=== PATIENT | female | born 1995 | race Hispanic/Latino ===

== ENCOUNTER 2020-06-22 17:19 | Outpatient (CLI) | payer MEDICAID, SELFPAY ==
--- NOTE | ~2020-06-22 | US_ITS ---
US OB >= 14 weeks Fetus 06/22/2020 17:44 Indication: Threatened . No heart tones. Procedure: High-resolution Limited obstetrical ultrasound Comparison: No prior studies for comparison. Findings: There is a single living intrauterine in vertex presentation. heart rate is 150 BPM. Placenta is posterior without previa. Amniotic fluid is subjectively normal. Impression: 1: Single living intrauterine in vertex presentation with heart rate of 150 BPM. Reviewed, dictated and finalized at location A. Impression: 1: Single living intrauterine in vertex presentation with heart rate of 150 BPM.
== END 2020-06-22 17:20 | disposition home or self-care (01) ==
PROVIDERS: PCP Obstetrics & Gynecology; Visit Provider Obstetrics & Gynecology
DX: O20.0 Threatened abortion (principal)
CPT/HCPCS: 76805

== ENCOUNTER 2020-09-29 09:22 | Outpatient (CLI) | payer MEDICAID, SELFPAY ==
[2020-09-29 11:07] LABS: Hematocrit 37.2 % (37.0-47.0); Hemoglobin 11.7 g/dL (12.0-15.0); Mean Corpuscular HGB Conc 31.5 g/dl (32-36); Mean Corpuscular Hemoglobin 23.8 pg (26-34); Mean Corpuscular Volume 75.8 fl (80-100); Platelet Count Result 274 k/mm3 (150-375); Red Blood Count 4.91 M/mm3 (4.2-5.4); Red Cell Distribution Width 15.1 % (11.5-14.5); White Blood Count 5.6 K/mm3 (4.5-10.0)
[2020-09-29 11:27] LABS: Glucose 1 Hour PP 50gm Dose 83 mg/dL
[2020-09-29 12:35] LABS: HIV 1/2 Ab P24 Ag Result Negative (Negative)
== END 2020-09-29 09:23 | disposition home or self-care (01) ==
PROVIDERS: PCP Obstetrics & Gynecology; Visit Provider Obstetrics & Gynecology
DX: Z34.90 Encounter for supervision of normal pregnancy, unspecified, unspecified trimester (principal); Z3A.00 Weeks of gestation of pregnancy not specified
CPT/HCPCS: 36415; 82947; 85027; 86703; G0432

== ENCOUNTER 2020-11-25 09:15 | Inpatient (IN) | payer MEDICAID, SELFPAY ==
[2020-11-25] VITALS (14 sets, daily range): BP systolic 91–150; BP diastolic 54–75; PULSE 62–108; RESP 12–16; TEMP 36.8–37.1; O2SAT 100
--- NOTE | 2020-11-25 09:15 | LDADM ---
This patient, Elsa Andres, was admitted to Labor/Delivery/Recovery 105 on 11/25/20 at 09:15. Plans for labor, pain management and were discussed with patient. Patient/family oriented to hospital policies and general routines including ID bracelet, bed and alarms, visiting hours, pain management, procedures, bathroom and other care routines, personal items, smoking policy, room service/diet and guest tray routines, security routines, and visiting hours. Patient/Family are encouraged to report perceived risks to care and to ask questions if they do not understand what they are told or what they should do. See OBIX for further documentation.
[2020-11-25] MEDS: OXYTOCIN 30 UNITS/NS 500 ML 30 UNITS/500 ML BAG 999 UNITS IV CONT (09:45)
[2020-11-25] MEDS: AMPICILLIN 2 GM/NS 100 ML 2 GM/100 ML BAG IVPB (09:45)
[2020-11-25] MEDS: LACTATED RINGERS 1,000 ML 125 ML IV CONT (09:45)
--- NOTE | 2020-11-25 09:50 | WPDOBADMIT ---
Obstetrics - Admit Note Admission Note: record reviewed. No pertinent additions to the history and/or any subsequent changes in the physical findings that are not consistent with the expected course of the were found. Additions to the history and/or subsequent changes in the physical findings follow. at 36+6 weeks with c/o contractions, 8 cm on arrival. GBS done 11/20 but no result available in chart or on computer, so start antibiotics due to prematurity. Anticipate
[2020-11-25 09:54] LABS: Basophils Percent Auto 0.3 % (0.2-1.2); Eosinophils Percent Auto 0.2 % (0-4.4); Hematocrit 42.1 % (37.0-47.0); Hemoglobin 13.3 g/dL (12.0-15.0); Immature Granulocyte Absolute 0.06 K/mm3 (0.00-0.031); Immature Granulocyte Percent A 0.5 % (0-0.5); Immature Platelet Fraction Pct 17.2 % (0.9-11.2); Lymphocytes Absolute Auto 1.56 K/mm3 (0.9-3.2); Lymphocytes Percent Auto 14.1 % (18.3-44.2); Mean Corpuscular HGB Conc 31.6 g/dl (32-36); Mean Corpuscular Hemoglobin 23.9 pg (26-34); Mean Corpuscular Volume 75.7 fl (80-100); Mean Platelet Volume 11.7 fl (7.4-10.4); Monocytes Absolute Auto 0.4 K/mm3 (0.1-0.6); Monocytes Percent Auto 3.4 % (2.6-8.5); Neutrophils Percent Auto 81.5 % (45.5-73.1); Platelet Count Result 214 k/mm3 (150-375); Red Blood Count 5.56 M/mm3 (4.2-5.4); Red Cell Distribution Width 18.4 % (11.5-14.5)
--- NOTE | 2020-11-25 09:54 | OBADM ---
This patient, Elsa Andres, admitted to the OB room Labor/Delivery/Recovery 105 for observation. Patient/family oriented to hospital policies and general routines including ID bracelet, bed and alarms, visiting hours, pain management, procedures, bathroom and other care routines, personal items, smoking policy, room service/diet, and visiting hours. Patient/Family are encouraged to report perceived risks to care and to ask questions if they do not understand what they are told or what they should do.
--- NOTE | 2020-11-25 10:42 | PM.OBPRVD ---
OB - Delivery Note Procedure Delivery date: 11/25/20 Procedure: events: Labor < 37 Weeks Induction method: none Delivery augmentation: rupture of membranes Delivery monitor: external FHT and external uterine Route of delivery: Laceration Description: Perineal - 1st Degree Delivery repair: vicryl (3-0) Specimen: No Quantitative Blood Loss (ml): 223 Anesthesia type: Local Disposition: floor Baby Date of : 11/25/20 Time of : 10:23 Weeks of gestation at delivery: 36 Infant gender: Male Weight (pounds): 6 Weight (ounces): 7 presentation: vertex position: Left Occiput Anterior Placenta delivery description: Spontaneous cord vessel description: 3 Vessels, Loose, Clamped/Cut and Around Body x1 score one minute: 8 score five minutes: 9
[2020-11-25 10:45] LABS: HIV 1/2 Ab P24 Ag Result Negative (Negative)
[2020-11-25] MEDS: OXYTOCIN 30 UNITS/NS 500 ML 30 UNITS/500 ML BAG 125 UNITS IV CONT (11:01)
[2020-11-25] MEDS: BENZOCAINE 20% AER SPR (*SP) 56 GM CAN 1 SPRAY TOPICAL (13:17)
[2020-11-25] MEDS: WITCH HAZEL 40 PADS 1 PAD TOPICAL (13:18)
--- NOTE | 2020-11-25 18:27 | OBPPTRN ---
1357 Patient transferred to post room #282 via W/C . Support person present. Oriented to unit, room, information board, rooming in, admission packet and security measures. The [employer] Golf Teacher was used. Patient verbalizes understanding.
[2020-11-26 05:54] LABS: Hematocrit 32.6 % (37.0-47.0); Hemoglobin 10.3 g/dL (12.0-15.0)
[2020-11-26 10:18] VITALS: BP 95/62; PULSE 80; RESP 16; TEMP 36.6; O2SAT 97
[2020-11-26] MEDS: DOCUSATE SODIUM 100 MG CAPSULE PO (10:18)
[2020-11-26] MEDS: MULTIVIT/MIN/PREN/FOL AC/IRON TABLET 1 TAB PO (10:18)
[2020-11-26] MEDS: IBUPROFEN 600 MG TABLET PO (10:18)
--- NOTE | 2020-11-26 11:10 | P.PNOB_ITS ---
OB - PN: Subj Subjective Date/time seen: 11/26/20 11:10 Patient comments: no complaints, pain well controlled and other (Lochia similar to menses) [place] baby status: doing well OB - PN: Obj Data Labs CBC & Chem 7: 11/26/20 04:31 Labs: Laboratory Results - last 24 hr 11/25/20 11/26/20 09:34 04:31 Hgb 10.3 L D Hct 32.6 L Blood Type O Positive Antibody Screen Negative OB - PN A/P Plan day: 1 (s/p vaginal delivery, doing well) Plan: routine care Time Spent With Patient Time: Total time spent is greater than 50% in coordination of care (as documented) at patient's floor/unit and/or counseling patient: Exam Const: General: no acute distress GI: Inspection: other (Fundus firm and nontender at umbilicus) GI Palp: Yes Soft to palpation and No Tenderness to palpation present (GI) Extrem: General: no edema
--- NOTE | 2020-11-26 11:10 | PM.OBDSVD ---
DS: Admitting Diagnosis Admitting Diagnosis Admitting Diagnosis: labor DS: Discharge Diagnosis Discharge Diagnosis (1) delivery: Code(s): O60.10X0 - labor with delivery, unspecified trimester, not applicable or unspecified Status: Acute OB - DS: Summary OB Procedures : None OB Procedures Intrapartum: Spontaneous Vag Delivery OB Procedures: : None Peripartum Data Infant Delivery Method: Natural Vaginal Laceration Description: Perineal - 1st Degree complications: none Status at Discharge Functional status at discharge: independent ambulation Overall status at discharge: patient is progressing back to baseline Time Spent with Patient Time attestation: Total time spent providing and/or coordinating discharge services: Time spent: Less than 30 minutes DS: Data Data Completed and Pending Labs on day of discharge: Labs from last 24 hours 11/26/20 11/25/20 04:31 09:34 Hgb 10.3 L D Hct 32.6 L Blood Type O Positive Antibody Screen Negative Discharge Plan Discharge Attending physician on discharge: Ce Levy Discharging Clinician: Ce Levy Anticipated Discharge Date/Time: 11/27/20 11:00 Patient Disposition: Home, Self-Care Activity: may shower and pelvic rest Diet: as tolerated Discharge Instructions: Educaci?n: Gu?a de ilene? y beb? yassine a: Paciente Seguimiento: Llame al consultorio de rajan proveedor de entrega para que se le ate joshua ayleen en: 4 semanas Ilene? y beb? deben venir al Pabell?n de Mujeres para la ayleen de seguimiento posparto. Fecha/Hora de la Ayleen: Mi?rcoles 11/29/2020 a las 10:00 am Llame al [phone] si no puede cumplir con la hora de rajan ayleen. CUIDADO BREAST: * Use un sujetador de apoyo ajustado. * Para molestias engorgement: Lactancia materna: * Aplicar pa?os h?medos calientes * Leche expr?sa seg?n sea necesario para aliviar el engorgement * Use ropa suelta Alimentaci?n de botellas: * Puede aplicar paquetes de hielo * Para pezones doloridos: * Identificar el pestillo correcto * Aplicar pa?os h?medos calientes antes y despu?s de la lactancia * Pezones secos al aire despu?s de la lactancia * Puede aplicar crema Lansinoh a los pezones CUIDADO PERINEAL: * Hasta que se detenga el sangrado, use rajan frasco vin despu?s de orinar * Cambie rajan almohadilla con frecuencia kamila todo el d?a * Usted puede alexandrea ba?os de sitz varias veces al d?a (llenar rajan ba?era con agua tibia y remojar kamila 20 minutos.) NO se ba?e en el agua * No hay ba?eras hasta que sea visto por rajan m?dico - Usted puede ducharse Actividad: * Descansar tanto vivian sea posible. * No bossman ejercicio ni levante nada m?s pesado que rajan beb? (vivian la lavander?a u otros ni?os.) * Evite las escaleras o conduzca tanto vivian sea posible. * No ponga nada en la vagina. No douching, tampones, o actividad sexual hasta que sea visto por el m?dico. NOTIFICAR AL M?DICO SI TIENE ALGUNA PREGUNTA O SI SE PRESENTA ALGUNO DE LOS SIGUIENTES S?NTOMAS: * Si rajan episiotom?a o incisi?n se vuelve aamir, hinchada o m?s dolorosa que la que julio experimentado en el hospital. * Si rajan sangrado vaginal se convierte en mal olor. * Si rajan sangrado vaginal se vuelve m?s intenso que un per?odo menstrual o si rajan sangrado cambia ramiro a araya brillante. Sin embargo, puedes pasar un co?gulo ocasional del jesse?o de joshua nuez joshua o dos veces kamila la primera semana despu?s del parto. * Si experimenta un dolor cheko y punz?n en las pantorrillas. * Si descubres joshua ken dura y enrojecida en la mama o si experimentas s?ntomas similares a los de la gripe. Dieta: * Coma comidas regulares y equilibradas. * Antonietta muchos l?quidos diariamente. Si est? amamantando, antonietta sed. Patient Instructions: Antibiotic Form Follow-up/Referrals: Ce Levy MD [Primary Care Provider] - 4 Weeks Dis
--- NOTE | 2020-11-26 17:20 | PC.NURSE ---
1700 Used the [employer] Authorization Coordinator to help the FOB understand that he needed to install the car seat base properly before the infant in the car seat could go in the base. He V/U'd and installed the base and then was able to click the car seat down into it rear facing and adjusted the car seat handle down into place between the infant car seat and the front seat.
--- NOTE | 2020-11-26 17:29 | PC.NURSE ---
1700 D/C teaching done using the [employer] Nib Inspector. She V/U'justus.
[2020-11-27 07:01] LABS: Rapid Plasma Reagin Non-Reactive (NonReactive)
[2020-11-29 11:38] VITALS: BP 105/63; PULSE 100; RESP 18; TEMP 37.2; O2SAT 100
== END 2020-11-26 17:00 | disposition home or self-care (01) | DRG 560 ==
LOC: ANHLDR 09:30 → ANHOB2 13:54
PROVIDERS: Admitting Provider Obstetrics & Gynecology; PCP Obstetrics & Gynecology; Visit Provider Obstetrics & Gynecology
DX: O60.14X0 Preterm labor third trimester with preterm delivery third trimester, not applicable or unspecified (principal); Z37.0 Single live birth; Z3A.36 36 weeks gestation of pregnancy; O70.0 First degree perineal laceration during delivery; O69.82X0 Labor and delivery complicated by other cord entanglement, without compression, not applicable or unspecified
CPT/HCPCS: 36415; 85014; 85018; 85025; 85055; 86592; 86703; 86850; 86900; 86901; A9270; G0432; J0290; J2590; J7120

== ENCOUNTER 2025-01-28 13:32 | Outpatient (CLI) | payer MEDICAID, SELFPAY ==
--- NOTE | ~2025-01-28 | US_ITS ---
EXAMINATION: US OB <=14 wk fetus w TV DATE: 01/28/2025 20:59 BOXING INSTRUCTOR INDICATION: Amenorrhea COMPARISON: 08/25/2024 TECHNIQUE: Real-time transabdominal obstetric ultrasound. FINDINGS: Last menstrual period is given as 11/02/2024 4 para 3 Estimated date of delivery by last menstrual period is 08/09/2025 The uterus measures 15.8 x 9.1 x 10.6 cm. A gestational sac is identified within the uterus. A pole is identified, with a crown-rump length that measures 6.6 cm, corresponding to an approx imate gestational age of 13 weeks and 0 days. cardiac activity is identified at a rate of 157 bpm. Despite prolonged interrogation, neither ovary was visualized. Estimated date of delivery by ultrasound is 08/05/2025 IMPRESSION: Single intrauterine gestation with an approximate gestational age of 13 weeks and 0 days, with cardiac activity identified. Reviewed, dictated and finalized at location A. NG INSTRUCTOR IMPRESSION: Single intrauterine gestation with an approximate gestational age of 13 weeks a nd 0 days, with cardiac activity identified.
--- OUTSIDE RECORDS SUMMARY | 2025-01-28 13:49 | XMS_ITS | Data Portability ---
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 Plan of Treatment Reminders Order Date Submit Date Provider Last Modified By Organization Details Last Modified Time Details Appointments None recorded. Lab test, urine 2024 025 doris In-Office Order, Internal Use Only DO Not Attach Compendium DO Not Attach Compendium, Do Not Delete/merge, [id number] 5 13:00:28 cytology report, thin prep, smear or scraping, cervical or vaginal 2023 024 [facility], [address] [place] [address], [facility] [address], [place], [address], 4 15:17:30 lipid panel, serum 2023 024 [facility], [address] [place] [address], [address], [place], [address], 4 08:23:26 CMP, serum or plasma 2023 024 [facility], [address] [place] [address], [address], [place], [address], 4 08:23:27 Referral obstetrici an and gynecologi st referral 2024 025 [email or web address] Not available 5 11:51:17 gastroente rologist referral - 4AS T 75ALT 116Patient was due follow up 11/2023 voices no one told me 2023 024 [facility], [address], [place], [address], 5 12:04:43 Procedures None recorded. Surgeries None recorded. Imaging None recorded. Medication Orders 28 mg iron-800 mcg tablet [address] [facility], [address] [place] [address], [id number], 5 10:29:41 metronidaz ole 0.75 % (37.5 mg/5 gram) vaginal gel 2023 024 [facility], [address] [place] [address], [id number], 4 11:20:21 Sprintec (28) 0.25 mg-35 mcg tablet [address] [facility], [address] [place] [address], [id number], 4 18:10:46 Patient TargetsNo targets recorded. Patient Instructions Encounter Date Encounter Id Patient Instructions Last Modified By Organization Details Last Modified Time 02/09/2024 [id number] aprenda acerca d el peso saludable - [learning about healthy weight] yarauz Not available 02/09/2024 12:42:42 ndice de masa corporal: instrucciones de cuidado - [body mass index: care instructions] yarauz Not available 02/09/2024 12:42:43 schedule for wwe yarauz Not available 02/09/2024 13:01:40 Discharge Instructions - Wound Care - You may bathe with steri strips on -you may remove bandaid in 24 hours -you may use ice to area for discomfort or bruising - Elevate to decrease pain and improve healing. - Minimize use of affected body part. - Return here or see your doctor for any sign of infection, including redness, swelling, pus or increased pain. - Return for wound check in 10 days. -Take Tylenol if you have fever or pain. Return for a more severe reaction. Return to see your doctor in {{1 2 3 4 5 6 7 8 9 10* 11 12 13 14}} days for a recheck. Return of see your doctor if not improving in {{1 2 3 4 5 6 7 8 9 10 11 12 13 14}} days. Patient to start oral control today Patient to take OBC at same time every day as directed Use condoms as back for first week Risks of hormonal control reviewed, including but not limited to thrombosis, embolism, pulmonary embolism, stroke, disability, sexual dysfunction & . Patient understands these risk are increased with smoking. Patient understands that these risks may be increased when using the patch (Ortho-Evra) or the vaginal ring (Nuva-Ring) when compared to oral control pills. Risks of bone loss with Depo Provera also reviewed. All questions answered. Pt understands & accepts risks. Instructions/warnin g signs given. I have reviewed the chart and agree with the provider's assessment and plan -Dr Wade Ibarra MD Not available 02/10/2024 10:31:52 02/19/2024 [id number] aprenda acerca d el peso saludable - [learning about healthy weight] yarauz Not available 02/19/2024 13:24:36 ndice de masa corporal: instrucciones de cuidado - [body mass index: care instructions] yarauz Not available 02/19/2024 13:24:36 wound is healing no infection signs schedule for wwe continue your current medicines yarauz Not available 02/19/2024 13:24:36 05/11/2024 [id number] A healthy lifestyle: care instructions yarauz Not available 05/11/2024 12:58:09 Enfermedad hep ellen grasa no alcoh lica: Instrucciones de cuidado - [Nonalcoholic Fatty Liver Disease (NAFLD): Care Instructions] yarauz Not available 05/11/2024 12:58:09 aprenda acerca d el peso saludable - [learning about healthy weight] yarauz Not available 05/11/2024 12:58:09 ndice de masa corporal: instrucciones de cuidado - [body mass index: care instructions] yarauz Not available 05/11/2024 12:58:09 Weight loss leads to improvement in liver biochemical tests, liver histology, serum insulin levels and quality of life. Maintain a healthy weight. Lose weight if you are overweight or obese Eat a healthy diet. Try to limit salt and sugar. You can eat fruits, vegetables and whole grains. The Mediterranean Diet is a good choice. Exercise regularly. This can help you lose weight and reduce fat in the liver Lower your cholesterol and triglycerides Avoid alcohol Only take medicines that you need and follow dosing recommendations. If you want to take any dietary supplements like vitamins and herbal remedies, please call the office first. 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 HIV testing recommendation condoms prn contraceptive options-pt refuses new guidelines--pap with Hpv in 3-5 years--pelvic exam every year Mammogram yearly after age 40 Check B/P once yearly I have reviewed the chart and agree with the provider's assessment and plan -Dr Wade Ibarra MD Not available 06/30/2024 11:22:57 12/23/2024 [id number] aprenda acerca d el peso saludable - [learning about healthy weight] yarauz Not available 12/23/2024 13:00:27 ndice de masa corporal: instrucciones de cuidado - [body mass index: care instructions] yarauz Not available 12/23/2024 13:00:28 ectopic symptoms and follow up start vitamins Nutritional guidelines No drugs, alcohol, medications Any vaginal bleeding with severe abdominal cramping to E/R Jp doris Not available 12/23/2024 12:59:09 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 METAB OLIC PANEL (14) glucose 83 mg/dL 70-99 Not Available [facility] [address] [place] [address], [id number], 01/23/2024 21:07:48 01/23/20 24 01/23/2024 COMP. METAB OLIC PANEL (14) BUN 9 mg/dL 6-20 Not Available [facility] [address] [place], [address], 01/23/2024 21:07:48 01/23/20 24 01/23/2024 COMP. METAB OLIC PANEL (14) creatinine <=0.46 mg/dL 0.76-1 .27 below low normal Not Available [facility] [address] [place], [address], 01/23/2024 21:07:48 01/23/20 24 01/23/2024 COMP. METAB OLIC PANEL (14) eGFR 132 >=60 Units for eGFR value s are mL/mi n/1.7 3 The eGFR Calcu latio n has not been valid ated for patie nts under the age of 18. If test resul ts are displ ayed for a patie nt under the age of 18, disre pam that value . Not Available [facility] [address] [place], [address], 01/23/2024 21:07:48 01/23/20 24 01/23/2024 COMP. METAB OLIC PANEL (14) BUN/creatini ne ratio 22 9-23 Not Available [facility] [address] [place], [address], 01/23/2024 21:07:48 01/23/20 24 01/23/2024 COMP. METAB OLIC PANEL (14) sodium 137 mmol/ L 134-14 4 Not Available [facility] [address] [place] [address], [address], 01/23/2024 21:07:48 01/23/20 24 01/23/2024 COMP. METAB OLIC PANEL (14) potassium 4.2 mmol/ L 3.5-5. 2 Not Available [facility] [address] [place] [address], [id number], 01/23/2024 21:07:48 01/23/20 24 01/23/2024 COMP. METAB OLIC PANEL (14) chloride 103 mmol/ L 96-106 Not Available [facility] [address] [place] [address], [address], 01/23/2024 21:07:48 01/23/20 24 01/23/2024 COMP. METAB OLIC PANEL (14) carbon dioxide, total 25 mmol/ L 20-29 Not Available [facility] [address] [place] [address], [id number], 01/23/2024 21:07:48 01/23/20 24 01/23/2024 COMP. METAB OLIC PANEL (14) calcium 9.6 mg/dL 8.7-10 .2 Not Available [facility] [address] [place] [address], [address], 01/23/2024 21:07:48 01/23/20 24 01/23/2024 COMP. METAB OLIC PANEL (14) protein, total 7.3 g/dL 6.0-8. 5 Not Available [facility] [address] [place] [address], [address], 01/23/2024 21:07:48 01/23/20 24 01/23/2024 COMP. METAB OLIC PANEL (14) albumin 3.9 g/dL 4.0-5. 0 Not Available [facility] [address] [place] [address], [address], 01/23/2024 21:07:48 01/23/20 24 01/23/2024 COMP. METAB OLIC PANEL (14) globulin, total 3.4 g/dL 1.5-4. 5 Not Available [facility] [address] [place] [address], [address], 01/23/2024 21:07:48 01/23/20 24 01/23/2024 COMP. METAB OLIC PANEL (14) A/G ratio 1.0 1.2-2. 2 below low normal Not Available [facility] [address] [place] [address], [address], 01/23/2024 21:07:48 01/23/20 24 01/23/2024 COMP. METAB OLIC PANEL (14) bilirubin, total 0.2 mg/dL 0.0-1. 2 Not Available [facility] [address] [place] [address], [address], 01/23/2024 21:07:48 01/23/20 24 01/23/2024 COMP. METAB OLIC PANEL (14) alkaline phosphatase 76 IU/L 44-121 Not Available [facility] [address] [place] [address], [address], 01/23/2024 21:07:48 01/23/20 24 01/23/2024 COMP. METAB OLIC PANEL (14) AST (SGOT) 75 IU/L 0-40 above high normal Not Available [facility] [address] [place], [address], 01/23/2024 21:07:48 01/23/20 24 01/23/2024 COMP. METAB OLIC PANEL (14) ALT (SGPT) 116 IU/L 0-32 above high normal Not Available [facility] [address] [place], [address], 01/23/2024 21:07:48 01/23/20 24 01/23/2024 HEPAT IC FUNCT ION PANEL (7) bilirubin, direct <=0.20 mg/dL 0.00-0 .40 Not Available [facility] [address] [place], [address], 01/23/2024 21:07:49 01/23/20 24 01/24/2024 ACUTE HEPAT ITIS hep A Ab, IgM Negati ve negati ve Not Available [facility] ([facility]) [address] [place], [address], 01/24/2024 11:12:35 01/23/20 24 01/24/2024 ACUTE HEPAT ITIS HBsAg screen Negati ve negati ve Not Available [facility] ([facility]) [address] [place], [address], 01/24/2024 11:12:35 01/23/20 24 01/24/2024 ACUTE HEPAT ITIS hep B core Ab, IgM Negati ve negati ve Not Available [facility] ([facility]) [address] [place], [address], 01/24/2024 11:12:35 01/23/20 24 01/24/2024 ACUTE HEPAT ITIS HCV Ab Non Reacti ve nonrea ctive Not Available [facility] ([facility]) [address] [place], [address], 01/24/2024 11:12:35 01/23/20 24 01/24/2024 INTER PRETA TION: interpretati on: Commen t Not infec paulino with HCV unles s early or acute infec tion is suspe cted (whic h may be delay ed in an immun ocomp romis ed indiv idual ), or other evide nce exist s to indic ate HCV infec tion. Not Available [facility] ([facility]) [address] [facility], [place], [address], 01/24/2024 11:12:36 01/23/20 24 01/24/2024 GGT GGT 29 IU/L 0-60 Not Available [facility] ([facility]) [address] [place], [address], 01/24/2024 11:12:36 01/23/20 24 01/24/2024 MYNOR+L IPASE amylase 41 U/L 31-110 Not Available [facility] ([facility]) [address] [place], [address], 01/24/2024 11:12:37 01/23/20 24 01/24/2024 MYNOR+L IPASE lipase 22 U/L 14-72 Not Available [facility] ([facility]) [address] [place], [address], 01/24/2024 11:12:37 01/23/20 24 01/24/2024 VITAM IN D, 25-HY DROXY vitamin D, 25-hydroxy 33.0 NG/mL 30.0-1 00.0 Vitam in D defic iency has been defin ed by the Insti tute of Medic ine and an Endoc rine Socie ty pract ice guide line as a level of serum 25-OH vitam in D less than 20 ng/mL (1,2) . The Endoc rine Socie ty went on to furth er defin e vitam in D insuf ficie ncy as a level betwe en 21 and 29 ng/mL (2). 1. IOM (Inst itute of Medic ine). 2010. Faith ry refer ence mi es for calci um and D. Russel elias [place]: [facility] . 2. Luna francisco MF, Talon posadas [place], Horacio off-F errar i ALBARADO, et al. Evalu ation , treat ment, and preve ntion of vitam in D defic iency : an Endoc rine Socie ty clini theo pract ice guide line. JCEM. 2010; 96(7) :1911 -30. Not Available [facility] ([facility]) [address] [place], [address], 01/24/2024 11:12:37 05/11/20 24 05/12/2024 LIPID PANEL cholesterol, total 177 mg/dL 100-19 9 Not Available [facility] ([facility]) [address] [place], [address], 05/12/2024 08:23:26 05/11/20 24 05/12/2024 LIPID PANEL triglyceride s 251 mg/dL 0-149 above high normal Not Available [facility] ([facility]) [address] [place], [address], 05/12/2024 08:23:26 05/11/20 24 05/12/2024 LIPID PANEL HDL cholesterol 41 mg/dL >39 Not Available [facility] [address] [place], [address], 05/12/2024 08:23:26 05/11/20 24 05/12/2024 LIPID PANEL VLDL cholesterol theo 42 mg/dL 5-40 above high normal Not Available [facility] ([facility]) [address] [place], [address], 05/12/2024 08:23:26 05/11/20 24 05/12/2024 LIPID PANEL LDL chol calc ([facility]) 94 mg/dL 0-99 Not Available [facility] [address] [place], [address], 05/12/2024 08:23:26 05/11/20 24 05/12/2024 COMP. METAB OLIC PANEL (14) glucose 80 mg/dL 70-99 Not Available [facility] ([facility]) [address] [place] [place], [address], 05/12/2024 08:23:27 05/11/20 24 05/12/2024 COMP. METAB OLIC PANEL (14) BUN 7 mg/dL 6-20 Not Available [facility] ([facility]) [address] [place] [place], [address], 05/12/2024 08:23:27 05/11/20 24 05/12/2024 COMP. METAB OLIC PANEL (14) creatinine 0.55 mg/dL 0.57-1 .00 below low normal Not Available [facility] ([facility]) [address] [place] [place], [address], 05/12/2024 08:23:27 05/11/20 24 05/12/2024 COMP. METAB OLIC PANEL (14) eGFR 126 mL/mi n/1.7 3 >59 Not Available [facility] ([facility]) [address] [place] [place], [address], 05/12/2024 08:23:27 05/11/20 24 05/12/2024 COMP. METAB OLIC PANEL (14) BUN/creatini ne ratio 13 9-23 Not Available [facility] ([facility]) [address] [place], [address], 05/12/2024 08:23:27 05/11/20 24 05/12/2024 COMP. METAB OLIC PANEL (14) sodium 138 mmol/ L 134-14 4 Not Available [facility] ([facility]) [address] [place] [place], [address], 05/12/2024 08:23:27 05/11/20 24 05/12/2024 COMP. METAB OLIC PANEL (14) potassium 4.5 mmol/ L 3.5-5. 2 Not Available [facility] ([facility]) [address] [place], [address], 05/12/2024 08:23:27 05/11/20 24 05/12/2024 COMP. METAB OLIC PANEL (14) chloride 101 mmol/ L 96-106 Not Available [facility] ([facility]) [address] [place], [address], 05/12/2024 08:23:27 05/11/20 24 05/12/2024 COMP. METAB OLIC PANEL (14) carbon dioxide, total 24 mmol/ L 20-29 Not Available [facility] ([facility]) [address] [place], [address], 05/12/2024 08:23:27 05/11/20 24 05/12/2024 COMP. METAB OLIC PANEL (14) calcium 9.2 mg/dL 8.7-10 .2 Not Available [facility] ([facility]) [address] [place], [address], 05/12/2024 08:23:27 05/11/20 24 05/12/2024 COMP. METAB OLIC PANEL (14) protein, total 7.0 g/dL 6.0-8. 5 Not Available [facility] ([facility]) [address] [place], [address], 05/12/2024 08:23:27 05/11/20 24 05/12/2024 COMP. METAB OLIC PANEL (14) albumin 4.1 g/dL 4.0-5. 0 Not Available [facility] ([facility]) [address] [place], [address], 05/12/2024 08:23:27 05/11/20 24 05/12/2024 COMP. METAB OLIC PANEL (14) globulin, total 2.9 g/dL 1.5-4. 5 Not Available [facility] ([facility]) [address] [place], [address], 05/12/2024 08:23:27 05/11/20 24 05/12/2024 COMP. METAB OLIC PANEL (14) bilirubin, total 0.3 mg/dL 0.0-1. 2 Not Available [facility] ([facility]) [address] [place], [address], 05/12/2024 08:23:27 05/11/20 24 05/12/2024 COMP. METAB OLIC PANEL (14) alkaline phosphatase 69 IU/L 44-121 Not Available [facility] [address] [place], [address], 05/12/2024 08:23:27 05/11/20 24 05/12/2024 COMP. METAB OLIC PANEL (14) AST (SGOT) 68 IU/L 0-40 above high normal Not Available [facility] ([facility]) [address] [place], [address], 05/12/2024 08:23:27 05/11/20 24 05/12/2024 COMP. METAB OLIC PANEL (14) ALT (SGPT) 125 IU/L 0-32 above high normal Not Available [facility] ([facility]) [address] [place], [address], 05/12/2024 08:23:27 06/30/20 24 07/01/2024 IGP, APTIM A HPV, RFX 16/18 ,45 HPV aptima NEGATI VE negati ve This nucle ic acid ampli ficat ion test detec ts fourt een high- risk HPV types (16,1 8,31, 33,35 ,39,4 5,51, 52,56 ,58,5 9,66, 68) witho ut diffe renti ation . Not Available [facility] ([facility]) [address] [place], [address], 07/05/2024 15:17:30 06/30/20 24 07/05/2024 IGP, APTIM A HPV, RFX 16/18 ,45 diagnosis: SANDI MARSH [facility] FOR INTRA EPITH ELIAL OLIVIA Kaiser OR ANDRE VALLES . Not Available [facility] ([facility]) [address] [facility], [place], [address], 07/05/2024 15:17:30 06/30/20 24 07/05/2024 IGP, APTIM A HPV, RFX 16/18 ,45 specimen adequacy: SANDI Sanchez Satis facto ry for evalu ation . Endoc ervic al and/o r squam ous metap lasti c cells (endo cervi theo compo nent) are prese nt. Not Available [facility] ([facility]) [address] [place], [address], 07/05/2024 15:17:30 06/30/20 24 07/05/2024 IGP, APTIM A HPV, RFX 16/18 ,45 clinician provided ICD10: SANDI Sanchez Z01.4 11 Not Available [facility] ([facility]) [address] [place], [address], 07/05/2024 15:17:30 06/30/20 24 07/05/2024 IGP, APTIM A HPV, RFX 16/18 ,45 performed by: SANDI mcdaniel Cytot giovanna sanchez (ASCP ) Not Available [facility] ([facility]) [address] [place], [address], 07/05/2024 15:17:30 06/30/20 24 07/05/2024 IGP, APTIM A HPV, RFX 16/18 ,45 . . Not Available [facility] ([facility]) [address] [place], [address], 07/05/2024 15:17:30 06/30/20 24 07/05/2024 IGP, APTIM A HPV, RFX 16/18 ,45 note: COMMEN T The Pap smear is a scree adrián test desig vinicius to aid in the detec tion of elias ligna nt and malig nant condi tions of the uteri ne cervi x. It is not a diagn ostic proce dure and shoul d not be used as the sole means of detec ting cervi theo cance r. Both false -posi tive and false -nega tive repor ts do occur . Not Available [facility] ([facility]) [address] [facility], [place], [address], 07/05/2024 15:17:30 06/30/20 24 07/05/2024 IGP, APTIM A HPV, RFX 16/18 ,45 test methodology: SANDI T This liqui d based ThinP rep(R ) pap test was scree vinicius with the use of an image guide justus cheung. Not Available [facility] ([facility]) [address] [facility], [place], [address], 07/05/2024 15:17:30 06/30/20 24 07/05/2024 IGP, APTIM A HPV, RFX 16/18 ,45 HPV genotype reflex COMMEN T Crite cristina not met, HPV Genot ype not perfo rmed. Not Available [facility] ([facility]) [address] [facility], [place], [address], 07/05/2024 15:17:30 12/23/19 25 12/23/2024 pregn moni test, urine HCG positi ve Not Available In-Office Order Internal Use Only DO Not Attach Compendium DO Not Attach Compendium, Do Not Delete/merge, [id number] 12/23/2024 12:43:37 Result Notes None recorded. 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 Keith East [facility] Attn: Accountin g,[address] [place], [address], [place] [facility] 2 16:04:26 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 33992288045 9109 Completed 2019 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 Vivien Garcia RN null, [place] [facility] 1 11:15:20 Body mass index 30+ - obesity 814760823 Active 2020 Keith East [facility] Attn: Accountin g,[address] [place], [address], [place] [facility] 2 16:04:26 Vitamin D deficien cy 50566164 Active 2020 Keith East [facility] Attn: Accountin g,[address] [place], [address], [place] [facility] 2 16:04:26 Chronic thoracic back pain 88291172081 9103 Active 2020 Keith East [facility] Attn: Accountin g,[address] [place], [address], [place] [facility] 2 16:04:26 Abnormal liver function 98493055 Active 2020 Keith East [facility] Attn: Accountin g,[address] [place], [address], [place] [facility] 2 16:04:26 Impaired glucose toleranc e 7468124 Active 2020 Keith East [facility] Attn: Accountin g,[address] [facility], [place], [address], [place] [facility] 2 16:04:26 Non-alco holic fatty liver 846310317 Active 2021 Vivien [place] RN [place], [place] [facility] 4 11:55:34 Migraine with aura 0674671 Active 2023 Vivien [place], [place] [facility] 4 11:55:30 Steatosi s of liver 889130467 Active 2023 Vivien [place] RN null, [place] [facility] 4 11:55:39 Initial prescrip tion of oral contrace ption Active 2023 HARRISON White-VON Attn: Nela rizo,[address] [facility], [place], [address], [place] - [facility] 4 12:39:34 Mixed hyperlip idemia 997775550 Active 2023 HARRISON White-BC Attn: Nela rizo,[address] [facility], [place], [address], [place] [facility] 4 17:15:26 Problem Notes None recorded. Procedures Surgical History Date Name Laterality Status Provider Name and Address Organization Details Recorded Time 4 Date of Last Pap Smear completed TANIYA White Attn: Accounting,[address] [facility], [place], [address], [place] [facility] 12/23/2024 12:54:53 4 Control Implant Removal completed HARRISON White-BC Attn: Accounting,[address] [facility], [place], [address], [place] [facility] 02/09/2024 12:41:59 1 Control Implant Insertion completed HARRISON White-BC Attn: Accounting,[address] [facility], [place], [address], [place] [facility] 02/08/2021 13:02:01 Imaging Results None recorded. Procedure Notes None recorded. Medical Equipment None Reported. Allergies No known drug allergies Medications Name Sig Start Date Stop Date Status Note LastModified by Organization Details LastModified Time cyclobenzap rine 10 mg tablet TAKE 1 TABLET BY MOUTH THREE TIMES DAILY 06/06 completed Not Available Not Available Not Available cetirizine 10 mg tablet Take 1 tablet every day by oral route. 02/08 completed Not Available Not Available Not Available azithromyci n 250 mg tablet TAKE 2 TABLETS BY MOUTH ON DAY 1, AND THEN TAKE 1 TABLET BY MOUTH ONCE A DAY ON DAY 2 THROUGH DAY 5 02/08 completed Not Available Not Available Not Available ibuprofen 800 mg tablet TAKE 1 TABLET BY MOUTH THREE TIMES DAILY 02/08 completed Not Available Not Available Not Available metronidazo le 0.75 % (37.5 mg/5 gram) vaginal gel Insert 1 applicato rful every day by vaginal route for 5 days, for inflammat ion. 2023 active Not Available Not Available Not Avai lable aspirin 81 mg tablet,wiliam yed release Take 1 tablet every day by oral route. 02/02 completed Not Available Not Available Not Available Vitamin tablet Take 1 tablet every day by oral route as directed for 90 days. 02/02 completed Not Available Not Available Not Available cyanocobala min (vit B-12) 1,000 mcg/mL injection solution Inject 1 mL every month by subcutane ous route. 02/02 completed Not Available Not Available Not Available naproxen sodium 550 mg tablet TAKE 1 TABLET BY MOUTH EVERY 12 HOURS 05/11 completed Not Available Not Available Not Available ibuprofen 400 mg tablet TAKE 1 TABLET BY MOUTH EVERY 6 HOURS 02/08 completed Not Available Not Available Not Available progesteron e micronized 200 mg capsule Take 1 capsule every day by oral route for 12 days. 02/02 completed Not Available Not Available Not Available diclofenac sodium 75 mg tablet,wiliam yed release TAKE 1 TABLET BY MOUTH TWICE DAILY 10/22 completed Not Available Not Available Not Available folic acid 1 mg tablet Take 2 tablets twice a day by oral route. 02/02 completed Not Available Not Available Not Available ergocalcife rol (vitamin D2) 1,250 mcg (50,000 unit) capsule TAKE 1 CAPSULE BY MOUTH ONCE A WEEK 05/11 completed Not Available Not Available Not Available ibuprofen 600 mg tablet TAKE 1 TABLET BY MOUTH EVERY 6 TO 8 HOURS 06/06 completed Not Available Not Available Not Available methylpredn isolone 4 mg tablets in a dose pack TAKE DIRECTED ON PACKAGE 02/08 completed Not Available Not Available Not Available doxycycline hyclate 100 mg tablet TAKE 1 TABLET BY MOUTH TWICE DAILY FOR 14 DAYS 09/09 completed Not Available Not Available Not Available Sprintec (28) 0.25 mg-35 mcg tablet TAKE ONE TABLET BY MOUTH EVERY DAY active Not Available Not Available No t Available Calcium with Vitamin D3 600 mg (carbonate) -10 mcg (400 unit) capsule Take 1 capsule twice a day by oral route. 02/02 completed Not Available Not Available Not Available Nexplanon 68 mg subdermal implant Inject 1 implant by subcutane ous route. 02/08 completed Not Available Not Available Not Available 28 mg iron-800 mcg tablet Take 1 tablet every day by oral route, for vitamin. 2024 active Not Available Not Available Not Avai garrick [facility] RediChew Rx 1.4 mg chew tablet,imme diate - delayed release Chew 1 tablet every day by oral route. 02/02 completed Not Available Not Available Not Available Vitals Date Recorded Body height Body mass index (BMI) Body weight Body temperature Heart rate Systolic blood pressure Diastolic blood pressure Provider Name and Address Organization Details Last Updated DateTime 154.94 cm 34.4 kg/m2 24998.2 1 g 98.1 [degF] 82 /min 110 mm[Hg] 64 mm[Hg] Josefina Pham MA [place] [facility] 12:31:38 Date Recorded Body height Provider Name an d Address Organization Details Last Updated DateTime 02/19/2024 154.94 cm Josefina alvarenga MA [place] - [facility] 02/19/2024 12:42:56 Date Recorded Body mass index (BMI) Body weight Oxygen saturation Oxygen saturation in Arterial blood by Pulse oximetry Heart rate Body temperature Systolic blood pressure Diastolic blood pressure Provider Name and Address Organization Details Last Updated DateTime 4 33.9 kg/m2 38979.8 3 g 98 % 98 % 60 /min 98.3 [degF] 100 mm[Hg] 78 mm[Hg] Brigid sanchez MA [facility] 4 13:18:24 Date Recorded Body height Body mass index (BMI) Body weight Heart rate Body temperature Systolic blood pressure Diastolic blood pressure Provider Name and Address Organization Details Last Updated DateTime 4 154.94 cm 33.7 kg/m2 32868.2 4 g 84 /min 98 [degF] 100 mm[Hg] 62 mm[Hg] Vivien Garcia RN [facility] 4 12:10:13 Date Recorded Body height Provider Name an d Address Organization Details Last Updated DateTime 06/30/2024 154.94 cm Josefina alvarenga MA [facility] 06/30/2024 10:21:55 Date Recorded Body mass index (BMI) Body weight Body temperature Oxygen saturation Oxygen saturation in Arterial blood by Pulse oximetry Heart rate Systolic blood pressure Diastolic blood pressure Provider Name and Address Organization Details Last Updated DateTime 4 33.5 kg/m2 45741.6 5 g 98 [degF] 97 % 97 % 86 /min 100 mm[Hg] 70 mm[Hg] Brigid sanchez MA [facility] 4 10:31:01 Date Recorded Body height Body mass index (BMI) Body weight Oxygen saturation Oxygen saturation in Arterial blood by Pulse oximetry Heart rate Body temperature Systolic blood pressure Diastolic blood pressure Provider Name and Address Organization Details Last Updated DateTime 5 154.94 cm 33.7 kg/m2 40509.2 4 g 100 % 100 % 80 /min 97.8 [degF] 102 mm[Hg] 70 mm[Hg] Brigid sanchez MA [facility] 5 12:43:27 Social History Question Answer Notes LastModified by Organizat ion Details LastModified Time Tobacco Smoking Status Never Smoker Shana Mckay MA null, [facility] 05/11/2020 10:27:33 Do You Have An Advance Directive? No Information not available 05/11/2020 What Is Your Level Of Alcohol Consumption? None Information not available 05/11/2020 If You Are , What Was Your Level Of Alcohol Consumption Prior To ? None Information not available 05/11/2020 Is Anesthesia Consult Planned? Yes Information not available 05/11/2020 Plan No Information no t available 05/11/2020 Are You Blind Or Do You Have Difficulty Seeing? No Information not available 02/02/2021 Is Blood Transfusion Acceptable In An Emergency? Yes Information not available 05/11/2020 What Is Your Level Of Caffeine Consumption? Occasional Information not available 05/11/2020 Live With Cats/exposure To Cat Litter No Information not available 05/11/2020 How Much Tobacco Do You Chew? None Information not available 05/11/2020 In The 14 Days Before Symptom Onset, Have You Had Close Contact With A Laboratory-confir med COVID-19 While That Case Was Ill? No Information not available 02/02/2021 In The 14 Days Before Symptom Onset, Have You Had Close Contact With A Person Who Is Under Investigation For COVID-19 While That Person Was Ill? No Information not available 02/02/2021 Have You Been To An Area Known To Be High Risk For COVID-19? No Information not available 02/02/2021 Are You Currently Employed? No Information not available 05/11/2020 Are You Deaf Or Do You Have Serious Difficulty Hearing? No Information not available 02/02/2021 What Type Of Diet Are You Following? REGULAR Information not available 05/11/2020 Which Illicit Or Recreational Drugs Have You Used? None Information not available 05/11/2020 Do You Or Have You Ever Used E-cigarettes Or Vape? 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 No Information no t available 05/11/2020 Frequent Air Travel No Information not available 05/11/2020 Are There Any Guns Present In Your Home? No Information not available 02/02/2021 Illicit Drugs Pre- None Information not available 05/11/2020 Live Alone Or With Others? With Others Information not available 05/11/2020 Marital Status Informatio n not available 05/11/2020 Do You Have A Medical Power Of Induction Coordination Power Engineer? Yes [email or web address] Information not available 11/19/2022 What Was The Date Of Your Most Recent Tobacco Screening? 12/23/2024 Information not available 12/23/2024 How Many Children Do You Have? 3 Information not available 02/02/2021 Are There Any Occupational Health Risks Where You Work? None Information not available 05/11/2020 What Is Your Relationship Status? Information not available 02/02/2021 Do You Use Your Seat Belt Or Car Seat Routinely? Yes Information not available 02/02/2021 Seat Belts Used Routinely Yes Information not available 05/11/2020 Are You Sexually Active? Yes Information not available 05/11/2020 Do You Have Smoke And Carbon Monoxide Detectors In Your Home? Yes Information not available 05/11/2020 Are You Passively Exposed To Smoke? No Information no t available 05/11/2020 Do You Or Have You Ever Used Smokeless Tobacco? Never Used Smokeless Tobacco Information not available 05/11/2020 How Much Tobacco Do You Smoke? No Information not available 05/11/2020 Smoking Pre- No Information not available 05/11/2020 General Stress Level Low Information not available 05/11/2020 Do You Feel Stressed (tense, Restless, Nervous, Or Anxious, Or Unable To Sleep At Night)? [id number] Information not available 10/22/2022 Do You Use Any Illicit Or Recreational Drugs? No Information not available 02/02/2021 Do You Use Sunscreen Routinely? No Information not available 05/11/2020 Has Tobacco Cessation Counseling Been Provided? No Information not available 01/14/2024 On What Date Was Tobacco Cessation Counseling Provided? 12/23/2024 Information not available 12/23/2024 How Many Years Have You Smoked Tobacco? 0 Information not available 05/11/2020 Do You Or Have You Ever Used Any Other Forms Of Tobacco Or Nicotine? No Information not available 02/02/2021 Sex: Female Functional Status Question Answer Note LastModified by Organization D etails LastModified Time Are you able to care for yourself? Yes Information n ot available 02/02/2021 What is your exercise level? None Information not available 05/11/2020 Mental Status None recorded. Family History Relationship Description Onset Age of this Age Resolved Age Notes LastModified by Organization Details LastModified Time Father No current problems or disability [email or web address] Not available 04/24 10:27:17 Father Hypertensive disorder yarauz Not available 2020 13:07:46 Father Migraine yarauz Not available 0 01/14/2024 18:20:12 Mother No current problems or disability [email or web address] Not available 04/24 10:27:17 Mother Diabetes mellitus 40 yarauz Not available 2020 13:07:40 Sister Migraine yarauz Not available 0 02/08/2021 13:07:22 Medical History Condition Response Other Y High Blood Pressure N Breast Cancer N Thyroid Problems N Kidney or Bladder Problems N GI Problems N Depression N Blood Clots N Lung Disease N Acne N Breast Problem N Eating Disorder N Anemia N Anesthesia Complications N Headaches/Migraines Y Anxiety Disorder N Diabetes N Ovarian Cancer N Muscle, Joint, or Bone Problems N Blood Transfusions N Seizures/Epilepsy N Polyps N Infertility N Acid Reflux (GERD) N Cancer N Abuse/Domestic Violence N Asthma N Endometriosis N High Cholesterol N Hepatitis N Liver Disease N Heart Disease N Pre-Eclampsia N Osteoporosis N Gynecological History Statement/Question Response Flow Heavy Date of LMP 11/03/2024 On BCP's at Conception? N STIs/STDs N HPV Vaccine N Duration of Flow (days) 9 Age at Menarche 9 Current Control Method None Age at First Child 17 Frequency of Cycle (Q days) 26 Sexually Active? Y Menses Monthly Y Date of Last Pap Smear 06/30/2024 Sexual Problems? N LMP Approximate Desired Control Method BCPs Obstetrics History GPAL:G 3 P 3 0 0 3 Type Value Multiple Births 0 Full Term 3 Induced 0 Spontaneous 0 Premature 0 Living 3 Ectopics 0 Total 3 Immunizations Vaccine Type Date Status Note Provider Nam e and Address Organization Details Recorded Time Influenza, split virus, quadrivalent, preservative 0 completed Shana Mckay [place] null, [place] - [facility] 05/11/2020 12:17:14 Tdap 1 completed Vivien Garcia RN [place], [place] [facility] 02/02/2021 11:19:18 Influenza, split virus, quadrivalent, PF 0 completed Shana Mckay [place], [place] [facility] 05/11/2020 15:32:44 Influenza, split virus, quadrivalent, preservative 2 completed TANIYA White Attn: Accounting[address] [place], [address], [place] [facility] 10/22/2022 17:04:58 Influenza, split virus, quadrivalent, preservative 3 completed TANIYA White Attn: Accounting[address] [place], [address], [place] [facility] 09/09/2023 17:47:32 Past Encounters Encounter ID Performer Location Encounter Start Date Encounter Closed Date Diagnosis/Indication Diagnosis SNOMED-CT Code Diagnosis ICD10 Code Diagnosis Note [id number] LAZARO Madrid (NEWS WIRE PHOTO OPERATOR) [address] [place] [phone] 05/11/2020 09:55:40 05/12/2020 07:58:51 Routine care 964286005 Z34.90 Venereal d isease screening 289582804 Z11.3 screening 9237 18608 Z36.85 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 Administra tion of influenza vaccine 61858823 Z23 [id number] Kosta Gilbert (NEWS WIRE PHOTO OPERATOR) [address] [place] [phone] 06/14/2020 10:35:05 06/15/2020 09:01:16 Routine care 985574275 Z34.90 Familial s hort stature 735853823 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 She is breast feeding. She will use condoms for now until insertion. Will order Nexplanon for patient Depression screening [id number] 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 [address] [address] 05/07/2021 10:17:07 05/08/2021 14:13:12 Gynecologic examination 53487784 Z01.411 Self breast exam calcium rich foods handout vitamin D 2000 iu daily exercise weight loss diet Body mass index 30+ - obesity 315172246 Z68.30 Ht 5' 1 Healthy weight range 100-130 Familial s hort stature 951597267 R62.52 Multiple joint pain 3567 8005 M25.50 Family his tory of diabetes mellitus in first degree relative 242048970 Z83.3 Mother HIV screening 946449970 Z11.4 Loss of hair 878866979 L 65.9 Chronic th oracic back pain 5852043911 15067 M54.6 [id number] Keith [place] [address] [place] [address] 05/22/2021 12:32:31 05/23/2021 07:22:07 Abnormal liver function 66569734 K76.89 Body mass index 30+ - obesity 617313951 Z68.30 Ht 5' 1 Healthy weight range 100-130 Vitamin D deficiency 347 59185 E55.9 Vitamin D 24Start Rx Vitamin D2 50565 IU once weekly for 12 weeksonce you complete RX buy otc vitamin D3 1000 IU once daily Impaired g lucose tolerance 7137174 R73.02 HA1C 5.8 Watch your weight. A healthy weight helps your body use insulin properly. Limit the amount of calories, sweets, and unhealthy fat you eat. Get at least 30 minutes of exercise on most days of the week. Exercise helps control your blood sugar. It also helps you maintain a healthy weight. Walking is a good choice. You also may want to do other activities , such as running, swimming, cycling, or playing tennis or team sports. Do not smoke. Smoking can make prediabete s worse. [id number] Josefina Pham MA [place] [address] [address] 05/29/2021 12:28:27 05/30/2021 07:45:24 Abnormal liver function 98569860 K76.89 [id number] Keith [place] [address] [place] [address] 06/06/2021 11:20:45 06/07/2021 07:39:52 Chronic thoracic back pain 4037279772 66180 M54.6 will dc ibuprofen and flexeril Body mass index 30+ - obesity 346820165 Z68.30 Ht 5' 1 Healthy weight range 100-130 Steatosis of liver 1007 K76.0 no alcoholno tylenolAST 102.8ALT 201.3 Abnormal l iver function 74108756 K76.89 06/05/2021 u/s liver echogenic with common bile duct measuring 0.22cm and normal upper limits is 0.6cm7/62 021AST 102.8ALT 201.3 [id number] Josefina Pham, [facility] [address] [place] [address] 07/19/2021 10:48:56 07/20/2021 10:00:02 Steatosis of liver 961575736 K76.0 no alcoholno tylenolAST 102.8ALT 201.3 [id number] Keith [place], [facility] [address] [place] [address] 10/22/2022 15:40:14 10/25/2022 09:45:01 Abnormal liver function 73274379 K76.89 06/05/2021 u/s liver echogenic with common bile duct measuring 0.22cm and normal upper limits is 0.6cm 021AST 102.8ALT 201.3Patie nt was referred to GI 06/06/2021 but she did not show to appointmen t Administra tion of influenza vaccine 37253234 Z23 Non-alcoho lic fatty liver 433889442 K76.0 US liver shows fatty liver06/05 u/s liver echogenic with common bile duct measuring 0.22cm and normal upper limits is 0.6cm Depression screening 171 443363 Z13.31 PHQ 2-9 negative Mental hea lt screening 184000444 Z13.39 MAURICE-7 negative [id number] YUNG GUERRA [facility] [address] [place] [address] 11/19/2022 10:26:18 11/21/2022 10:40:23 Steatosis of liver 795473164 K76.0 Likely NAFLD. Patient counseled at length regarding dietary changes and exercise targeting a sustained 5% - 10% weight loss. Treatment should be focused on optimizing control of the metabolic syndrome, which should reduce risk of cardiovasc ular disease and severity of liver disease. The use of a statin in NAFLD is safe, with no increased risk of drug-induc ed hepatotoxi cityEfra miranda to work with PCP for blood sugar management Discussed with patient the concern that ongoing elevated liver enzymes can lead to liver fibrosis which can progress to cirrhosis. Cirrhosis is progressiv e liver damage with complicati ons of liver cancer, liver failure and . liver 06/05/2021: No evidence of cholelithi asis or biliary dilationFa tty liver parenchyma l replacemen t residuals Negative acute hepatitis panel 05/29/2021GG T 10/22/2022 WNLamylase and lipase 10/22/2022 WNL [id number] Keith East [facility] [address] [address] 03/11/2023 12:34:43 03/12/2023 15:09:30 Body mass index 30+ - obesity 449700458 Z68.30 Ht 5' 1 Healthy weight range 100-130 Obesity 695637730 E66.9 BMI 30.2 Abnormal v aginal bleeding 118216802 N93.9 Had nexplanon insertion on 02/08/2021H as irregular vaginal bleedingMe nses for 15 days light spotting sometimes clotswill try ibuprofen 400mg every 6 hrs prn Depression screening 171 151722 Z13.31 PHQ 2-9 negative Mental hea lth screening 512671812 Z13.39 MAURICE-7 negative [id number] Keith East [facility] [address] [address] 04/16/2023 11:21:02 04/18/2023 15:13:30 Body mass index 30+ - obesity 218020869 Z68.30 Ht 5' 1 BMI 33.9 Healthy weight range 100-130 Abnormal v aginal bleeding 830009236 N93.9 Had nexplanon insertion on 02/08/2021H as irregular vaginal bleedingMe nses for 15 days light spotting sometimes clotswill try ibuprofen 800mg every 6 hrs prn Obesity 039267744 E66.9 BMI 33.9 Depression screening 171 271688 Z13.31 PHQ 2-9 negative Mental hea lth screening 932297851 Z13.39 MAURICE-7 negative Serous otitis media 8032 7007 H65.03 [id number] [facility] [address] [place] [address] 09/09/2023 15:28:10 09/23/2023 15:43:25 Body mass index 30+ - obesity 196498950 Z68.30 Ht 5' 1 BMI 33.9 Healthy weight range 100-130 Non-alcoho lic fatty liver 259815132 K76.0 US liver shows fatty liver06/05 u/s liver echogenic with common bile duct measuring 0.22cm and normal upper limits is 0.6cm12/03 repeat u/s liver shows diffuse hepatic steatosis Administra tion of influenza vaccine 95742566 Z23 Vitamin D deficiency 347 96987 E55.9 Vitamin D 24 buy otc vitamin D3 1000 IU once daily Hyperlipid emia screening 947585610 Z13.220 Impaired g lucose tolerance 0600391 R73.02 09/09/2023 HA1C 5.8 Watch your weight. A healthy weight helps your body use insulin properly. Limit the amount of calories, sweets, and unhealthy fat you eat. Get at least 30 minutes of exercise on most days of the week. Exercise helps control your blood sugar. It also helps you maintain a healthy weight. Walking is a good choice. You also may want to do other activities , such as running, swimming, cycling, or playing tennis or team sports. Do not smoke. Smoking can make prediabete s worse. Depression screening 171 Z13.31 PHQ 2-9 negative Mental hea lth screening 783424507 Z13.39 MAURICE-7 negative [id number] Keith East [facility] [address] [place] [address] 01/14/2024 16:45:47 01/21/2024 11:09:45 Obesity 165040172 E66.9 BMI 33.7Has lost 4 pounds Abnormal l iver function 63596848 K76.89 06/05/2021 u/s liver echogenic with common bile duct measuring 0.22cm and normal upper limits is 0.6cm 021AST 102.8ALT 201.3Patie nt was referred to GI 06/06/2021 -patient seen by FAROOQ GUERRA on 11/19/2022 09/09/2023 AST 219ALT 241 Weight loss leads to improvemen t in liver biochemica l tests, liver histology, serum insulin levels and quality of life.Maint ain a healthy weight. Lose weight if you are overweight or obeseEat a healthy diet. Try to limit salt and sugar. You can eat fruits, vegetables and whole grains. The Mediterran robert Diet is a good choice.Exe rcise regularly. This can help you lose weight and reduce fat in the liverLower your cholestero l and triglyceri desAvoid alcoholOnl y take medicines that you need and follow dosing recommenda tions. If you want to take any dietary supplement s like vitamins and herbal remedies, please call the office first.No Tylenol Steatosis of liver 1007 K76.0 Likely NAFLD. Patient counseled at length regarding dietary changes and exercise targeting a sustained 5% - 10% weight loss. Treatment should be focused on optimizing control of the metabolic syndrome, which should reduce risk of cardiovasc ular disease and severity of liver disease. The use of a statin in NAFLD is safe, with no increased risk of drug-induc ed hepatotoxi city.Arturo ruth to work with PCP for blood sugar management Discussed with patient the concern that ongoing elevated liver enzymes can lead to liver fibrosis which can progress to cirrhosis. Cirrhosis is progressiv e liver damage with complicati ons of liver cancer, liver failure and . US liver 06/05/2021: No evidence of cholelithi asis or biliary dilationFa tty liver parenchyma l replacemen t residuals Negative acute hepatitis panel 05/29/2021GG T 10/22/2022 WNLamylase and lipase 10/22/2022 WNL Vitamin D deficiency 347 60525 E55.9 Vitamin D 16Rx Vitamin D2 74120 IU once weekly for 12 weeksbuy otc vitamin D3 1000 IU once daily Acute sinusitis 18693961 J01.90 Migraine with aura 07536 06 G43.109 Depression screening 171 328141 Z13.31 PHQ 2-9 negative Mental hea lth screening 432320353 Z13.39 MAURICE-7 negative [id number] Brigid García MA [facility] [address] [place] [address] 01/23/2024 13:58:01 01/26/2024 14:37:25 Abnormal liver function 02088124 K76.89 Vitamin D deficiency 347 67911 E55.9 [id number] Wade Ibarra MD [facility] [address] [place] [address] 02/09/2024 12:11:15 02/18/2024 13:39:12 Contraception care management 766111063 Z30.09 Discussed contracept krysta risks and benefits Handout on contracept parth methods Condoms as necessary Removal of subcutaneous contraceptive 511161998 Z30.46 Patient Had nexplanon insertion on 1P atient wants removal todayPatie nt will start oral control Initial pr escription of oral contraception 827145812 Z30.011 Body mass index 30+ - obesity 767555488 Z68.30 Ht 5' 1 BMI 34.4 Healthy weight range 100-130 Depression screening 171 101757 Z13.31 PHQ 2-9 negative Mental hea lth screening [id number] Z13.39 MAURICE-7 negative [id number] Keith East [facility] [address] [place] [address] 4 02/19/2024 12:33:45 02/24/2024 11:18:56 Subcutaneous contraceptive implant present 397218872 Z30.42 wound at left upper inner arm area healing Surveillan ce of subcutaneous contraceptive implant done [id number] 95656 Z30.46 Body mass index 30+ - obesity 194161265 Z68.30 Ht 5' 1 BMI 33.9 Healthy weight range 100-130 Depression screening 171 412850 Z13.31 PHQ 2-9 negative Mental hea lth screening 792095649 Z13.39 MAURICE-7 negative [id number] [facility] [address] [place] [id number] 4 05/11/2024 11:50:25 05/13/2024 09:30:48 Body mass index 30+ - obesity 026619412 Z68.30 Ht 5' 1 BMI 33.7 Healthy weight range 100-130 Obesity 696358574 E66.8 BMI 33.7Has lost 4 pounds Surveillan ce of oral contraception 018053664 Z30.41 Patient wishes to stop oral control for now Abnormal l iver function 52162466 K76.89 12/03/2022 repeat u/s liver shows diffuse hepatic steatosis4AST 75ALT 116 Steatosis of liver 1007 K76.0 Likely NAFLD. Patient counseled at length regarding dietary changes and exercise targeting a sustained 5% - 10% weight loss. Treatment should be focused on optimizing control of the metabolic syndrome, which should reduce risk of cardiovasc ular disease and severity of liver disease. The use of a statin in NAFLD is safe, with no increased risk of drug-induc ed hepatotoxi [facility].Arturo miranda to work with PCP for blood sugar management Discussed with patient the concern that ongoing elevated liver enzymes can lead to liver fibrosis which can progress to cirrhosis. Cirrhosis is progressiv e liver damage with complicati ons of liver cancer, liver failure and . US liver 06/05/2021: No evidence of cholelithi asis or biliary dilationFa tty liver parenchyma l replacemen t residuals Negative acute hepatitis panel 05/29/2021GG T 10/22/2022 WNLamylase and lipase 10/22/2022 WNL Mixed hyperlipidemia 267 614295 E78.2 09/09/2023 cho 180trig 276HDL 38LDL 127Avoid all breads, potatoes, cereal, pasta, rice, margarine, refined sugars, milk yogurt, ice cream, juices, soda (including diet), beer, and manmade or manufactur ed desserts. Enjoy steak, fish, chicken (no skin), pork, butter, vegetables , beans, nuts, whole eggs, cheese (low fat or skim), cream in your coffee. Non-alcoho lic fatty liver 964913551 K76.0 US liver shows fatty liver06/05 u/s liver echogenic with common bile duct measuring 0.22cm and normal upper limits is 0.6cm12/03 repeat u/s liver shows diffuse hepatic steatosis [id number] Wade Ibarra MD [facility] [address] [place] [address] 06/30/2024 10:17:49 07/13/2024 13:40:01 Gynecologic examination 34816308 Z01.411 Normal Manager Product Support examLast pap 05/07/2021 normal cytology due in 2023Last mammogram under 40colonosc opy Under 45STD screen not done IBCCP doesnt cover itSelf breast examcalciu m rich foods handoutvit dinh D 1000 iu dailyexerc ise 40-50 minutes 4-5 days per weekweight lossdietLi fetime breast cancer risk is 6.1% using SOFYA model Body mass index 30+ - obesity 832158781 Z68.30 BMI 33.5Ht 5' 1 Healthy weight range 100-130 Familial s hort stature 009274083 R62.52 Inflammati on of cervix 31472677 N72 [id number] Keith East [facility] [address] [place] [address] 12/23/2024 12:36:01 12/24/2024 13:30:24 Urine test positive 409814361 Z32.01 LNMP 11/03/2024 Approx gest 7 wksEDC 08/10/2025 Body mass index 30+ - obesity 463252847 Z68.30 BMI 33.7Ht 5' 1 Healthy weight range 100-130 Health Concerns Section Related Observation LastModified by Organization Detai ls LastModified Time None Recorded Concern Status LastModified by Organization Details LastModified Time None Recorded Advance Directives Directive N: Payers Encounter Date Sequence Insurance Name Policy Number Policy Lebron Covered Member ID Lebron Member ID Guarantor Name 02/09/2024 1 *SELF PAY* [place] makie Zhen-Ga maicol 02/19/2024 1 *SELF PAY* [place] adalupe Zhen-Ga maciol 05/11/2024 1 *SELF PAY* [place] makie Zhen-Ga maicol 06/30/2024 [facility] Elsa Gariago-Ga maicol [id number] Elsa Zhen-Ga maicol 12/23/2024 1 MEDICAID - [id number] [id number] Elsa CabreragoCristine milian Notes Date Note Type Note Provider Name and Address Organization Details Recorded Time 02/09/2024 text/html 28 y/o HF presen ts for nexplanon removal. The patient had insertion in 2020. The patient wants to start oral control. She has no contraindications. Last pap 04/2021-needs to schedule for wwe. Wade Ibarra MD Attn: Accounting[address] [place], [address], [facility] 02/10/2024 10:31:58 02/19/2024 text/html 28 y/o HF presen ts for nexplanon removal wound check. The patient has been feeling well. Her Last pap 04/2021-needs to schedule for wwe. 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 She wants to have her LFT rechecked today as these were abnormal. She was due follow up with GI 11/2023. SHe did not . She is requesting a new referral.She reports will be using natural family planning method. TANIYA White Attn: Accounting[address] [place], [address], [place] [facility] 05/11/2024 17:16:10 06/30/2024 text/html Annual GYNReport ed bypatient.History:n o gynecologic complaints; no change in interval history; She delivered a baby 11/2020 Menstrual cycle:Irregular cycle intervals Urinary symptoms:No hematuria; No incontinence Vulva:No genital lesion Vagina:White Breast:No breast pain; No breast lump; No nipple discharge Sexual complaints:No sexual complaints; No pain during intercourse; Normal libido Menopausal Symptoms:No menopausal symptoms; Normal vaginal lubrication Psychological symptoms:No depression; No anxiety; No PMDD 28 y/o HF L3 presents for well woman exam. Last pap done in 05/07/2021 and it was normal. Wade Ibarra MD Attn: Accounting[address] [place], [address], [place] [facility] 06/30/2024 11:23:01 12/23/2024 text/html 29 y/o L3 HF presents for test. Her Lnmp was on 11/06/2024. Her urine test today is positive. She denies any breast pain, vaginal bleeding. She will go to [place] for PNC. TANIYA White Attn: Accounting[address] [facility], [place], [address], [place] 12/23/2024 13:07:06 OBGyn Episode Ob Episode Information Episode Created Date Number of Fetuses Patient Bloodtype Patient rh Status Prepregnancy Weight lbs Domestic Partner Domestic Partner Phone Father Name Tester Equipment Status 05/11/20 20 1 CLOSED Fetus Data First Name Last Name Admitted to NICU Weight (g) Sex Living Outcome Pediatric Complications Fetus ID Race Codes Race Delivery Type F Full Term [id number] Standard Vaginal Delivery Mario Calculation Initial Mario Date Initial Exam Date Initial Exam Provider Initial Ultrasound Date Last Menstrual Period Date Ultra Sound Weeks Gestation 0 Eighteen To Twenty Week Mario Update Ultra Sound Date Fundal Height At Umbil Quickening Date Ultra Sound Latest Weeks Gestation Final Mario Confirmed By Final Mario Confirmed Date Final Mario Date Ultra Sound Latest Days Gestation 0 0 Menstrual History Last Menstrual Date Menses Monthly On Bcp Conception Prior Menses Frequency Hcg Plus Date Menarche Onset Age Delivery Information Delivery Date Delivery Type Labor Anesthesia Weeks Gestation Incision Type Labor Labor Length Hrs Delivered By Post Complications Tubal Sterilization Discharge Date Comments 9 None 40 Born in [place] Discharge Information Feeding Method Contraceptive Method Maternal HG B and HCT Levels Ob Episode Information Episode Created Date Number of Fetuses Patient Bloodtype Patient rh Status Prepregnancy Weight lbs Domestic Partner Domestic Partner Phone Father Name Tester Equipment Status 05/11/20 20 1 CLOSED Fetus Data First Name Last Name Admitted to NICU Weight (g) Sex Living Outcome Pediatric Complications Fetus ID Race Codes Race Delivery Type F Full Term [id number] Standard Vaginal Delivery Mario Calculation Initial Mario Date Initial Exam Date Initial Exam Provider Initial Ultrasound Date Last Menstrual Period Date Ultra Sound Weeks Gestation 0 Eighteen To Twenty Week Mario Update Ultra Sound Date Fundal Height At Umbil Quickening Date Ultra Sound Latest Weeks Gestation Final Mario Confirmed By Final Mario Confirmed Date Final Mario Date Ultra Sound Latest Days Gestation 0 0 Menstrual History Last Menstrual Date Menses Monthly On Bcp Conception Prior Menses Frequency Hcg Plus Date Menarche Onset Age Delivery Information Delivery Date Delivery Type Labor Anesthesia Weeks Gestation Incision Type Labor Labor Length Hrs Delivered By Post Complications Tubal Sterilization Discharge Date Comments 2 Regional-Ep idural 40 false Born in [place] Discharge Information Feeding Method Contraceptive Method Maternal HG B and HCT Levels Ob Episode Information Episode Created Date Number of Fetuses Patient Bloodtype Patient rh Status Prepregnancy Weight lbs Domestic Partner Domestic Partner Phone Father Name Tester Equipment Status 05/11/20 20 1 O Positive CLOSED Fetus Data First Name Last Name Admitted to NICU Weight (g) Sex Living Outcome Pediatric Complications Fetus ID Race Codes Race Delivery Type silvia díaz ny false 2908.65 87 M true Full Term [id number] 2106-3 White Vaginal Problems Problem Notes Problem Name Start Date End Date Resolution Snomed Code Note Familial short stature 0 [id number] 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 Mario Calculation Initial Mario Date Initial Exam Date Initial Exam Provider Initial Ultrasound Date Last Menstrual Period Date Ultra Sound Weeks Gestation 12/12/2020 05/11/2020 [email or web address] 06/02/2020 03/12/2020 12 Eighteen To Twenty Week Mario Update Ultra Sound Date Fundal Height At Umbil Quickening Date Ultra Sound Latest Weeks Gestation Final Mario Confirmed By Final Mario Confirmed Date Final Mario Date Ultra Sound Latest Days Gestation 0 [email or web address] 06/05/2020 12/12/19 21 0 Pre-alba Flowsheet Flowsheet Date 05/11/2020 Bauer Score Blood Edema Fundus Height Fundus Units Glucose Ketones Leukocytes Nitrite Labor Signs Protein Cervic Dilation Cervic Effacement Cervic Station neg none 8 wks none negative none neg Type Weight in lbs Pre/Post Dialysis Refused With clothes 160.372422751629 BP Diastolic BP Location Tested BP Systolic BP Type 68 110 sitting Fetus Heart Rate Present Fetus Movement Comments nob Flowsheet Date 06/14/2020 Bauer Score Blood Edema Fundus Height Fundus Units Glucose Ketones Leukocytes Nitrite Labor Signs Protein Cervic Dilation Cervic Effacement Cervic Station neg none none negative none neg Type Weight in lbs Pre/Post Dialysis Refused With clothes 157.448047004720 BP Diastolic BP Location Tested BP Systolic BP Type 62 94 sitting Fetus Heart Rate Present A 140 Present Fetus Movement Comments Genetic screening positive f or homozygous for the MTHFR C677T variant. Discussed condition and treatment with patient, who verbalized understanding of the need to manage with medication. Flowsheet Date 02/02/2021 Bauer Score Blood Edema Fundus Height Fundus Units Glucose Ketones Leukocytes Nitrite Labor Signs Protein Cervic Dilation Cervic Effacement Cervic Station Type Weight in lbs Pre/Post Dialysis Refused BP Diastolic BP Location Tested BP Systolic BP Type Fetus Heart Rate Present Fetus Movement Comments Menstrual History Last Menstrual Date Menses Monthly On Bcp Conception Prior Menses Frequency Hcg Plus Date Menarche Onset Age 0403/12/2020 true false 25 11 Genetic Screening And Infection History Question Response Note Patient's Age Will Be 35 Years Or Older At Estim ated Date of Delivery false Thalassemia (Sao Tomean, Citizen Of [place], Mediterranean, Or Background): MCV < 80 false Neural Tube Defect (Meningomyelocele, Spina Bifi da, Or Anencephaly) false Congenital Heart Defect false Down Syndrome false Edenilson-Sachs (eg, Evangelical, Cajun, St Helenian-[place]stone) f alse Bennie Disease false Sickle Cell Disease Or Trait () false Hemophilia Or Other Blood Disorders false Muscular Dystrophy false Cystic Fibrosis false Curtis's Chorea false Mental Retardation/Autism false If Yes, Was Person Tested For Fragile X? false Other Inherited Genetic Or Chromosomal Disorder false Maternal Metabolic Disorder (eg, Type 1 Diabetes , PKU) false Patient Or Baby's Father Had A Child With Defects Not Listed Above false Recurrent Loss, Or A Stillbirth false Medications (including Suppl ements, Vitamins, Herbs, OTC Drugs), Illicit/Recreational Drugs, Alcohol false If Yes, Agent(s) And Strength/Dosage false Any Other Genetic History false Live With Someone With TB Or Exposed To TB false Patient Or Partner Has History Of Genital Herpes false Rash Or Viral Illness Since Last Menstrual Perio d false History Of STD, Gonorrhea, Chlamydia, HPV, Syphi lis false Other Infection History false History of HIV false History of Hepatitis false Prior GBS-infected child false Delivery Information Delivery Date Delivery Type Labor Anesthesia Weeks Gestation Incision Type Labor Labor Length Hrs Delivered By Post Complications Tubal Sterilization Discharge Date Comments 1 37.4 false 11/27/2020 Discharge Information Feeding Method Contraceptive Method Maternal HG B and HCT Levels Breast
--- OUTSIDE RECORDS SUMMARY | 2025-01-28 13:49 | XMS_ITS | Data Portability ---
Author Organization [place] - [facility] [place] Address [address] [place] [address] Assessment No assessment recorded. Plan of Treatment Reminders Order Date Submit Date Provider Last Modified By Organization Details Last Modified Time Details Appointments None recorded. Lab None recorded. Referral None recorded. Procedures None recorded. Surgeries None recorded. Imaging US, obstetric, 2nd or 3rd trimester 2019 020 [email or web address] [place], [address], [address], [place], [address], 0 15:26:47 Medication Orders None recorded. Patient TargetsNo targets recorded. Patient InstructionsNo instructions recorded. Reason for Referral None Reported. Results Created Date Observation Date Name Description Value Unit Range Abnormal Flag Note LastModifiedBy Organization Detail LastModifiedTime 01/14/20 21 01/14/2021 US, obste tric, 2nd or 3rd trime ster interpretati on Not Available [facility] [address], [place], [address], 08/03/2020 15:00:16 08/03/20 20 US, obste tric, 2nd or 3rd trime ster No observ ation record ed. [email or web address] [address], [place], [address], 08/04/2020 15:07:43 08/03/20 20 US, obste tric, 2nd or 3rd trime ster No observ ation record ed. [email or web address] [address], [place], [address], 12/14/2020 14:28:37 Result Notes None recorded. Procedures Surgical History None recorded. Imaging Results Imaging Date Name Status LastModified by Organiz ation Details LastModified Time 08/03/2020 US, obstetric, 2nd or 3rd trimester completed [email or web address] [address], [place], [address], 08/04/2020 15:07:43 08/03/2020 US, obstetric, 2nd or 3rd trimester completed [email or web address] [address], [place], [address], 12/14/2020 14:28:37 Procedure Notes None recorded. Medical Equipment None Reported. Vitals None Recorded Social History None recorded. Functional Status None recorded. Mental Status None recorded. Family History Nothing Reported. Medical History No medical history recorded. Gynecological HistoryNo gynecological history recorded. Obstetrics History GPAL:G 0 P 0 0 0 0 Past Encounters Encounter ID Performer Location Encounter Start Date Encounter Closed Date Diagnosis/Indication Diagnosis SNOMED-CT Code Diagnosis ICD10 Code Diagnosis Note [id number] [address] [address] 07/11/2020 11:44:41 03/27/2021 10:05:33 [id number] Iqra [facility] [address] [address] 08/03/2020 14:02:09 08/03/2020 15:11:52 screening for malformation 556564087 Z36.3 Health Concerns Section Related Observation LastModified by Organization Detai ls LastModified Time None Recorded Concern Status LastModified by Organization Details LastModified Time None Recorded Advance Directives Directive None Recorded Payers Encounter Date Sequence Insurance Name Policy Number Policy Lebron Covered Member ID Lebron Member ID Guarantor Name 07/11/2020 1 [place] Elsa Zhen Galea [id number] Elsa Zhen Galea 08/03/2020 1 [place] Elsa Zhen Galea [id number] Elsa Zhen Galea OBGyn Episode No OBEpisode recorded.
== END 2025-01-28 13:33 | disposition home or self-care (01) ==
LOC: ANHIMG 13:34
PROVIDERS: PCP Obstetrics & Gynecology; Visit Provider Nurse Practitioner Obstetrics & Gynecology
DX: N91.2 Amenorrhea, unspecified (principal); Z3A.13 13 weeks gestation of pregnancy
CPT/HCPCS: 76801; 76817

== ENCOUNTER 2025-03-16 13:47 | Outpatient (CLI) | payer BC, SELFPAY ==
[2025-03-16 14:31] LABS: Basophils Percent Auto 0.3 % (0.2-1.2); Eosinophils Percent Auto 0.6 % (0-4.4); Hematocrit 36.7 % (37.0-47.0); Hemoglobin 11.3 g/dL (12.0-15.0); Immature Granulocyte Absolute 0.02 K/mm3 (0.00-0.031); Immature Granulocyte Percent A 0.3 % (0-0.5); Lymphocytes Absolute Auto 1.65 K/mm3 (0.9-3.2); Lymphocytes Percent Auto 25.7 % (18.3-44.2); Mean Corpuscular HGB Conc 30.8 g/dl (32-36); Mean Corpuscular Hemoglobin 23.6 pg (26-34); Mean Corpuscular Volume 76.6 fl (80-100); Monocytes Absolute Auto 0.3 K/mm3 (0.1-0.6); Monocytes Percent Auto 5.3 % (2.6-8.5); Neutrophils Absolute Auto 4.4 K/mm3 (1.3-6.7); Neutrophils Percent Auto 67.8 % (45.5-73.1); Platelet Count Result 240 k/mm3 (150-375); Red Blood Count 4.79 M/mm3 (4.2-5.4); Red Cell Distribution Width 17.7 % (11.5-14.5); White Blood Count 6.4 K/mm3 (4.5-10.0)
[2025-03-16 14:43] LABS: Add Urine Microscopic? YES; Appearance Urine Clear (Clear); Bacteria Urine 1+ /hpf; Bilirubin Urine Negative (Negative); Blood Urine Negative (Negative); Color Urine Yellow (Yellow); Glucose Urine UA Negative (Negative); Ketones Urine Trace mg/dL (Negative); Leukocyte Esterase Ur 1+ LEU/UL (Negative); Need Manual Microscopic Reviewed; Nitrate Urine Negative (Negative); Non Pathogenic Casts 0-2; Protein Urine Negative (Negative); RBC Urine 0-2 /hpf (0-2); Specific Grav Ur 1.024 (1.001-1.035); Squamous Epithelial Cell Urine Occasional /hpf (Few); WBC Urine 0-5 /hpf (0-3)
[2025-03-16 15:05] LABS: Alanine Aminotransferase 20 U/L (6-35); Albumin Level 3.8 g/dL (3.5-5.1); Alkaline Phosphatase 58 U/L (38-126); Anion Gap 10 mmol/L (4-12); Aspartate Amino Transferase 25 U/L (14-36); Bilirubin,Total 0.2 mg/dL (0.2-1.3); Blood Urea Nitrogen 6 mg/dL (7-17); Calcium 9.1 mg/dL (8.4-10.2); Carbon Dioxide 21 mmol/L (22-30); Chloride 105 mmol/L (98-107); Estimated Glomerular Filt Rate > 60; Glucose 84 mg/dL (65-110); Potassium 3.8 mmol/L (3.4-5.0); Sodium 136 mmol/L (137-145)
[2025-03-16 15:40] LABS: Rubella IgG Antibody 14.1 IU/ML
[2025-03-16 15:41] LABS: Syphilis IgG/IgM Antibody Negative (Negative)
--- OUTSIDE RECORDS SUMMARY | 2025-03-16 15:44 | XMS_ITS | Data Portability ---
Author Organization [place] - [facility] [place] Address [address] [place] [address] Assessment No assessment recorded. Plan of Treatment Reminders Order Date Submit Date Provider Last Modified By Organization Details Last Modified Time Details Appointments None recorded. Lab None recorded. Referral None recorded. Procedures None recorded. Surgeries None recorded. Imaging US, obstetric, 2nd or 3rd trimester 2019 020 [email or web address] [place], [address], [place], [address], 0 15:26:47 Medication Orders None recorded. Patient TargetsNo targets recorded. Patient InstructionsNo instructions recorded. Reason for Referral None Reported. Results Created Date Observation Date Name Description Value Unit Range Abnormal Flag Note LastModifiedBy Organization Detail LastModifiedTime 01/14/20 21 01/14/2021 US, obste tric, 2nd or 3rd trime ster interpretati on Not Available [facility] [address], [place], [address], 08/03/2020 15:00:16 08/03/20 20 US, obste tric, 2nd or 3rd trime ster No observ ation record ed. [email or web address] [address], [place], [address], 08/04/2020 15:07:43 08/03/20 20 US, obste tric, 2nd or 3rd trime ster No observ ation record ed. [email or web address] [address], [place], [address], 12/14/2020 14:28:37 Result Notes None recorded. Procedures Surgical History None recorded. Imaging Results Imaging Date Name Status LastModified by Organiz ation Details LastModified Time 08/03/2020 US, obstetric, 2nd or 3rd trimester completed [email or web address] [address], [place], [address], 08/04/2020 15:07:43 08/03/2020 US, obstetric, 2nd or 3rd trimester completed [email or web address] [address], [place], [address], 12/14/2020 14:28:37 Procedure Notes None recorded. Medical [...] SNOMED-CT Code Diagnosis ICD10 Code Diagnosis Note [id number] [facility] [address] [address] 07/11/2020 11:44:41 03/27/2021 10:05:33 [id number] Iqra [facility] [address] [address] 08/03/2020 14:02:09 08/03/2020 15:11:52 screening for malformation 038769482 Z36.3 Health Concerns Section Related Observation LastModified by Organization Detai ls LastModified Time None Recorded Concern Status LastModified by Organization Details LastModified Time None Recorded Advance Directives Directive None Recorded Payers Encounter Date Sequence Insurance Name Policy Number Policy Lebron Covered Member ID Lebron Member ID Guarantor Name 07/11/2020 1 [place] Elsa Zhen Galea [id number] Elsa Zhen Galea 08/03/2020 1 [place] Elsa Zhen Galea [id number] Elsa Zhen Galea OBGyn Episode No OBEpisode recorded.
[2025-03-16 15:53] LABS: HIV 1/2 Ab P24 Ag Result Negative (Negative)
[2025-03-16 16:03] LABS: Hepatitis B Surface Anti Res Positive; Hepatitis C Virus Antibody Negative (Negative)
[2025-03-17 18:54] LABS: Hemoglobin 11.7 g/dL (11.7-15.5); MCH 24.3 pg (27.0-33.0); MCV 76.8 fL (80.0-100.0); RDW 17.2 % (11.0-15.0); Red Blood Cell Count 4.82 Million/uL (3.80-5.10)
[2025-03-18 14:20] LABS: Varicella IgG Antibody 5.24 S/CO
== END 2025-03-16 13:48 | disposition home or self-care (01) ==
PROVIDERS: PCP Obstetrics & Gynecology; Visit Provider Obstetrics & Gynecology
DX: Z34.90 Encounter for supervision of normal pregnancy, unspecified, unspecified trimester (principal); Z3A.00 Weeks of gestation of pregnancy not specified
CPT/HCPCS: 36415; 80053; 81001; 83021; 83036; 84443; 85025; 86593; 86703; 86706; 86762; 86787; 86803; 86850; 86900; 86901; 87086; G0432

== ENCOUNTER 2025-05-26 08:58 | Outpatient (CLI) | payer OTHER, SELFPAY ==
--- OUTSIDE RECORDS SUMMARY | 2025-05-26 09:02 | XMS_ITS | Data Portability ---
Author Organization [facility] [place] Address [address] [place] [place] [address] Assessment No assessment recorded. Plan of Treatment Reminders Order Date Submit Date Provider Last Modified By Organization Details Last Modified Time Details Appointments None recorded. Lab None recorded. Referral None recorded. Procedures None recorded. Surgeries None recorded. Imaging US, obstetric, 2nd or 3rd trimester 2019 020 [email or web address] [place], [place], [address], 0 15:26:47 Medication Orders None recorded. Patient TargetsNo targets recorded. Patient InstructionsNo instructions recorded. Reason for Referral None Reported. Results Created Date Observation Date Name Description Value Unit Range Abnormal Flag Note LastModifiedBy Organization Detail LastModifiedTime 01/14/20 21 01/14/2021 US, obste tric, 2nd or 3rd trime ster interpretati on Not Available [facility] [address], [place], [address], 08/03/2020 15:00:16 08/03/20 20 US, obste tric, 2nd or 3rd trime ster No observ ation record ed. [email or web address] [address], [place], [address], 08/04/2020 15:07:43 08/03/20 20 US, obste tric, 2nd or 3rd trime ster No observ ation record ed. [email or web address] [address], [place], [address], 12/14/2020 14:28:37 Result Notes None recorded. Medical Equipment None Reported. [...] SNOMED-CT Code Diagnosis ICD10 Code Diagnosis Note [id number] Malik Antonio MD [place] [address] [address] 07/11/2020 11:44:41 03/27/2021 10:05:33 [id number] Malik Antonio MD [place] [address],[facility] [place] [address] 08/03/2020 14:02:09 08/03/2020 15:11:52 screening for malformation 429129308 Z36.3 Health Concerns Section Related Observation LastModified by Organization Detai ls LastModified Time None Recorded Concern Status LastModified by Organization Details LastModified Time None Recorded Advance Directives Directive None Recorded Payers Insurance Date Sequence Insurance Name Policy Number Policy Lebron Covered Member ID Lebron Member ID Guarantor Name 08/03/2020 1 [place] Elsa Locke [id number] Elsa Locke OBGyn Episode No OBEpisode recorded.
--- OUTSIDE RECORDS SUMMARY | 2025-05-26 09:02 | XMS_ITS | Clinical Summary ---
Author Organization [facility] Address [address] [place] [address] Care Team Providers Care Personal Lines Agent Name Role Phone Unavailable Primary Care Provider Unavailabl e Source Comments [facility],non-owned Affiliates and Associated Physician Practices is amultiple site organization consisting of ambulatory clinics and hospital sitesin [place], [place], [place] and [place]. This disclosure is being madepursuant to the Care Everywhere program and may not contain all information available regarding this patient. Last updated 18.[facility] Allergies No known active allergies Encounters Date Type Department Care Team Description 05/06/2025 2:30 PM CDT - 05/06/2025 11:59 PM CDT Hospital Encounter [facility] [address] [place] [address] Manas Tesfaye DO [employer] FORMER Discharge Disposition: Home or Self Care 04/04/2025 1:00 PM CDT - 04/04/2025 11:59 PM CDT Hospital Encounter [facility] [address] [place] [address] Erich Carrera MD Discharge Disposition: Home or Self Care from Last 3 Months Social History Tobacco Use Types Packs/Day Years Used Date Smoking Tobacco: Never Assessed Estimated Date of Delivery Comme nts Yes 08/10/2025 Based on last me nstrual period of 11/03/2024 Sex and Gender Information Value Date Recorded Sex Assigned at Not on file Legal Sex Female 9:26 AM CDT Gender Identity Not on file Sexual Orientation Not on file Plan of Treatment Upcoming Encounters Date Type Department Care Team (Late st Contact Info) Description 06/06/2025 9:45 AM CDT Hospital Encounter [facility] [address] [place] [address] Health Maintenance Due Date Last Done Comments HIV SCREENING 2008 HEPATITIS C SCREENING 10/01/2011 DTAP/TDAP/TD VACCINES (1 - Tdap) 2012 HEPATITIS B VACCINE (1 of 3 - 19+ 3-dose series) 2012 PAP SMEAR 2014 COVID-19 VACCINE (2 - season) 2024 06/19/2021 DEPRESSION SCREENING 11/24/2024 OB-ONE HOUR GLUCOSE 05/04/2025 OB-TDAP CURRENT 05/11/2025 11/25/2020, OB-RHOGAM INJECTION 05/18/2025 INFLUENZA VACCINE (#1) 2025 , 10/22/2022, 11/14/2020, Additional history exists ZOSTER VACCINE (1 of 2) 2043 HIB VACCINE Aged Out No longer eligi ble based on patient's age to complete this topic HPV VACCINE Aged Out No longer eligi ble based on patient's age to complete this topic MENINGOCOCCAL (Group B) VACCINE SHARED DECISION-MAKING Aged Out No longer eligible based on patient's age to complete this topic MENINGOCOCCAL GROUPS A/C/Y/W VACCINE Aged Out No longer eligible based on patient's age to complete this topic PNEUMOCOCCAL VACCINE Aged Out No long er eligible based on patient's age to complete this topic Respiratory Syncytial Virus (RSV) Vaccine Pt: or over 60 yrs (No Doses Required) Completed Procedures Procedure Name Priority Date/Time Associated Diagnosis Comments SONOGRAM - COMPLETE Routine 05/06/2025 2 :56 PM CDT Fourth (HCC) 25 weeks gestation of (HCC) Encounter for follow-up ultrasound of anatomy (HCC) SONOGRAM - COMPLETE Routine 04/04/2025 1 :02 PM CDT Fourth (HCC) 21 weeks gestation of (HCC) Encounter for anatomic survey (HCC) from Last 3 Months Results * SONOGRAM - COMPLETE (05/06/2025 2:56 PM CDT) Only the most recent of2 resultswithin the time period is included. Linked Results Indication ======== Incomplete anatomy Survey Obesity, Class I History ====== OB History 4. Para 3 Maternal Assessment Physical Exam Height 152 cm, 5 ft 0 in. Initial weight 80 kg, 177 lb. Initial BMI 34.57 kg/m Method ====== Transabdominal ultrasound. View: limited secondary to challenging acoustic properties. Suboptimal view: limited by position ========= Lmab . Number of fetuses: 1 Dating ====== Date Details Gest. age DINORA LMP 11/03/2024 26 w + 2 d 08/10/2025 Stated DINORA 26 w + 2 d 08/10/2025 U/S 05/06/2025 based upon AC, BPD, Femur, HC 27 w + 0 d 08/05/2025 Assigned dating based on the LMP, selected on 04/04/2025 26 w + 2 d 08/10/2025 General Evaluation Cardiac activity present. FHR 146 bpm. Presentation: footling breech Placenta: Placental site: right lateral no previa Umbilical cord: Cord vessels: 3 vessel cord. Insertion site: normal insertion Amniotic fluid: Amount of AF: normal. MVP 4.9 cm Biometry BPD 66.0 mm 26w 4d 51% Hadlock HC 241.3 mm 26w 1d 22% Hadlock AC 239.7 mm 28w 2d 92% Hadlock Femur 49.7 mm 26w 5d 51% Hadlock Humerus 46.4 mm 27w 3d 77% Kevin HC / AC 1.01 Weight Calculation: EFW 1,076 g 83% Hadlock EFW (lb,oz) 2 lb 6 oz EFW by Hadlock ([id number]-DL-[id number]-FL) overall normal range, but the AC is >90% Growth Overview Exam date GA BPD (mm) HC (mm) AC (mm) FL (mm) HL (mm) EFW (g) 04/04/2025 21w 5d 53.9 74% 200.7 61% 190 94% 42 93% 39.7 98% 601 >99% 05/06/2025 26w 2d 66 51% 241.3 22% 239.7 92% 49.7 51% 46.4 77% 1076 83% Anatomy The following structures appear normal: Heart / Thorax 4-chamber view. 3-vessel view. 4-qzuzzf-qwziofp view. Ductal arch view. Right lung. Left lung. Abdomen Stomach. Kidneys. Bladder. Spine Lumbar spine. Sacral spine. The following structures could not be adequately visualized: Heart / Thorax RVOT view. LVOT view. Great vessels. Extremities / Skeleton Hands. The following structures were documented previously: Head / Neck Cranium. Lateral ventricles. Choroid plexus. Midline falx. Cavum septi pellucidi. Cerebellum. Cisterna magna. Thalami. Nuchal fold. Face Lips. Profile. Nose. Nasal bone. Orbits. Heart / Thorax Situs. Aortic arch view. Bicaval view. Diaphragm. Abdomen Cord insertion. Bowel. Genitals. Spine Cervical spine. Thoracic spine. Extremities / Skeleton Arms. Legs. Feet. sex: male. Impression ========= Here today for completion of anatomical survey. Single, live, intrauterine at 26w 2d The size is overall normal range, but the AC is >90% . The amniotic fluid volume is normal. Normal appearing right lateral placenta No major malformations were seen within the limitations of ultrasound. but certain structures remains suboptimally visualized due to positioning and maternal acoustic properties. Comment ======== The biometry is showing good interval growth in the estimated weight is appropriate for the gestational age(83%) however the AC measures 92% which may be trending LGA this could either be constitutional or evolving GDM and if she has not had her glucose screen will recommend performing it at her next visit with her primary OB provider. Attempt to complete the anatomical survey showed no gross abnormalities however certain structures still remains suboptimally visualized due to positioning and maternal acoustic properties. Both ultrasound and screening/testing have their limitations in detecting all congenital anomalies and chromosomal abnormalities/inh erited disorders or genetic syndromes. Follow-up ======== To return in 4 weeks for interval growth and attempt to complete anatomic survey. If patient had screening for aneuploidy please for copy of the results and recommend glucose screening if not done already. labor and preeclampsia precautions along with kick counts. Thank you for allowing us to partake in your patient's care. Coding ====== Procedures 50644: US Preg Uterus Follow Up [facility] Armor5 PACS Anatomical Region Laterality Modality Other 05/06/2025 2:56 PM CDT us Shayan Auguste MD [facility] ORDERABLES Edited Result - Final from Last 3 Months Insurance
--- OUTSIDE RECORDS SUMMARY | 2025-05-26 09:02 | XMS_ITS | Data Portability ---
Author Organization [facility] DEVONMarie Stone Address [address] [place] [address] Care Team Providers Care Data Entry Manager Name Role Phone CRUZITOLOIS FONSECATIFFANY Primary Care Provider Assessment No assessment recorded. Plan of Treatment Reminders Order Date Submit Date Provider Last Modified By Organization Details Last Modified Time Details Appointments None recorded. Lab test, urine 2024 025 doris In-Office Order, Internal Use Only DO Not Attach Compendium DO Not Attach Compendium, Do Not Delete/merge, [id number] 5 13:00:28 cytology report, thin prep, smear or scraping, cervical or vaginal 2023 024 [facility], [facility], [address], [place], [address], 4 15:17:30 lipid panel, serum 2023 024 RICHLAND SETH, [facility], [address], [place], [address], 4 08:23:26 CMP, serum or plasma 2023 024 RICHLAND SETH, [address] [place] [address], [address], [place], [address], 4 08:23:27 Referral obstetrici an and gynecologi st referral 2024 025 [email or web address] Not available 5 11:51:17 gastroente rologist referral - 01/23/2024 AST 75 ALT 116 Patient was due follow up 11/2023 voices no one told me 2023 024 [facility], [address], [place], [address], 5 12:04:43 Procedures None recorded. Surgeries None recorded. Imaging None recorded. Medication Orders 28 mg iron-800 mcg tablet 2024 025 [facility], [address] [place] [address], [id number], 5 10:29:41 metronidaz ole 0.75 % (37.5 mg/5 gram) vaginal gel 2023 024 [employer] [facility], [address] [place] [address], [id number], 4 11:20:21 Sprintec (28) 0.25 mg-0.035 mg tablet 2023 024 [employer] [facility], [address] [place] [address], [id number], 4 18:10:46 Patient TargetsNo targets recorded. Patient Instructions Encounter Date Encounter Id Patient Instructions Last Modified By Organization Details Last Modified Time 02/09/2024 [id number] aprenda acerca d el peso saludable - [...] reaction. Return to see your doctor in 10 days for a recheck. Return of see your doctor if not improving in days. Patient to start oral control today [...] Ibarra MD Not available 02/10/2024 10:31:52 02/19/2024 [id number] aprenda acerca d el peso saludable - [learning about healthy weight] yarauz Not available 02/19/2024 13:24:36 ndice de masa corporal: instrucciones de cuidado - [body mass index: care instructions] yarauz Not available 02/19/2024 13:24:36 wound is healing no infection signs schedule for wwe continue your current medicines yarauz Not available 02/19/2024 13:24:36 05/11/2024 [id number] A healthy lifestyle: care instructions yarauz Not [...] Tylenol yarauz Not available 05/11/2024 17:15:47 06/30/2024 [id number] cervicitis: instrucciones de cuidado - [cervicitis: care [...] diet see dentist every 6 months see coal 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 every 1-2 years HIV testing recommendation condoms prn contraceptive options-pt refuses new guidelines--pap with Hpv in 3-5 years--pelvic exam every year Mammogram yearly after age 40 Check B/P once yearly I have reviewed the chart and agree with the provider's assessment and plan -Dr Wade Ibarra MD Not available 06/30/2024 11:22:57 12/23/2024 [id number] aprenda acerca d el peso saludable - [learning about healthy weight] yarauz Not available 12/23/2024 13:00:27 ndice de masa corporal: instrucciones de cuidado - [body mass index: care instructions] yarauz Not available 12/23/2024 13:00:28 ectopic symptoms and follow up start vitamins Nutritional guidelines No drugs, alcohol, medications Any vaginal bleeding with severe abdominal cramping to E/R Immediately doris Not available 12/23/2024 12:59:09 Reason for Referral Mold Filler Referral for Abnormal liver function 4AST 75ALT 116Patient was due follow up 11/2023 voices no one told me Referring Physician: Keith Beck, [facility], Encounter Date: 05/11/2024 Coverage Specialist Rn And Gynecologis t Referral for Urine test positive Referring Physician: Keith Beck [facility], Encounter Date: 12/23/2024 Results Created Date Observation Date Name Description Value Unit Range Abnormal Flag Note LastModifiedBy Organization Detail LastModifiedTime 01/23/20 24 01/23/2024 COMP. METAB OLIC PANEL (14) glucose 83 mg/dL 70-99 Not Available [facility] [address] [place] [address], [address], 01/23/2024 21:07:48 01/23/20 24 01/23/2024 COMP. METAB OLIC PANEL (14) BUN 9 mg/dL 6-20 Not Available [facility] [address] [place], [address], 01/23/2024 21:07:48 01/23/20 24 01/23/2024 COMP. METAB OLIC PANEL (14) creatinine <=0.46 mg/dL 0.76-1 .27 below low normal Not Available [facility] [address] [place], [address], 01/23/2024 21:07:48 01/23/20 24 01/23/2024 COMP. METAB OLIC PANEL (14) eGFR 132 >=60 Units for eGFR value s are mL/mi n/1.7 3 The eGFR Calcu latio n has not been valid ated for patie nts under the age of 18. If test resul ts are displ ayed for a patie nt under the age of 18, disre pam that value . Not Available [facility] [address] [place], [address], 01/23/2024 21:07:48 01/23/20 24 01/23/2024 COMP. METAB OLIC PANEL (14) BUN/creatini ne ratio 22 9-23 Not Available [facility] [address] [place], [address], 01/23/2024 21:07:48 01/23/20 24 01/23/2024 COMP. METAB OLIC PANEL (14) sodium 137 mmol/ L 134-14 4 Not Available [facility] [address] [place] [address], [address], 01/23/2024 21:07:48 01/23/20 24 01/23/2024 COMP. METAB OLIC PANEL (14) potassium 4.2 mmol/ L 3.5-5. 2 Not Available [facility] [address] [place] [address], [address], 01/23/2024 21:07:48 01/23/20 24 01/23/2024 COMP. METAB OLIC PANEL (14) chloride 103 mmol/ L 96-106 Not Available [facility] [address] [place], [address], 01/23/2024 21:07:48 01/23/20 24 01/23/2024 COMP. METAB OLIC PANEL (14) carbon dioxide, total 25 mmol/ L 20-29 Not Available [facility] [address] [place], [address], 01/23/2024 21:07:48 01/23/20 24 01/23/2024 COMP. METAB OLIC PANEL (14) calcium 9.6 mg/dL 8.7-10 .2 Not Available [facility] [address] [place] [address], [address], 01/23/2024 21:07:48 01/23/20 24 01/23/2024 COMP. METAB OLIC PANEL (14) protein, total 7.3 g/dL 6.0-8. 5 Not Available [facility] [address] [place], [address], 01/23/2024 21:07:48 01/23/20 24 01/23/2024 COMP. METAB OLIC PANEL (14) albumin 3.9 g/dL 4.0-5. 0 Not Available [facility] [address] [place], [address], 01/23/2024 21:07:48 01/23/20 24 01/23/2024 COMP. METAB OLIC PANEL (14) globulin, total 3.4 g/dL 1.5-4. 5 Not Available [facility] [address] [place], [address], 01/23/2024 21:07:48 01/23/20 24 01/23/2024 COMP. METAB OLIC PANEL (14) A/G ratio 1.0 1.2-2. 2 below low normal Not Available [facility] [address] [place], [address], 01/23/2024 21:07:48 01/23/20 24 01/23/2024 COMP. METAB OLIC PANEL (14) bilirubin, total 0.2 mg/dL 0.0-1. 2 Not Available [facility] [address] [place] [address], [address], 01/23/2024 21:07:48 01/23/20 24 01/23/2024 COMP. METAB OLIC PANEL (14) alkaline phosphatase 76 IU/L 44-121 Not Available [facility] [address] [place], [address], 01/23/2024 21:07:48 01/23/20 24 01/23/2024 COMP. METAB OLIC PANEL (14) AST (SGOT) 75 IU/L 0-40 above high normal Not Available [facility] [address] [place] [address], [address], 01/23/2024 21:07:48 01/23/20 24 01/23/2024 COMP. METAB OLIC PANEL (14) ALT (SGPT) 116 IU/L 0-32 above high normal Not Available [facility] [address] [place], [address], 01/23/2024 21:07:48 01/23/20 24 01/23/2024 HEPAT IC FUNCT ION PANEL (7) bilirubin, direct <=0.20 mg/dL 0.00-0 .40 Not Available [facility] [address] [place], [address], 01/23/2024 21:07:49 01/23/20 24 01/24/2024 ACUTE HEPAT ITIS hep A Ab, IgM Negati ve negati ve Not Available [facility] ([facility]) [address] [place], [address], 01/24/2024 11:12:35 01/23/20 24 01/24/2024 ACUTE HEPAT ITIS HBsAg screen Negati ve negati ve Not Available [facility] ([facility]) [address] [place], [address], 01/24/2024 11:12:35 01/23/20 24 01/24/2024 ACUTE HEPAT ITIS hep B core Ab, IgM Negati ve negati ve Not Available [facility] ([facility]) [address] [place], [address], 01/24/2024 11:12:35 01/23/20 24 01/24/2024 ACUTE HEPAT ITIS HCV Ab Non Reacti ve nonrea ctive Not Available [facility] ([facility]) [address] [place], [address], 01/24/2024 11:12:35 01/23/20 24 01/24/2024 INTER PRETA TION: interpretati on: Commen t Not infec paulino with HCV unles s early or acute infec tion is suspe cted (whic h may be delay ed in an immun ocomp romis ed indiv idual ), or other evide nce exist s to indic ate HCV infec tion. Not Available [facility] ([facility]) [address] [facility], [place], [address], 01/24/2024 11:12:36 01/23/20 24 01/24/2024 GGT GGT 29 IU/L 0-60 Not Available [facility] ([facility]) [address] [facility], [place], [address], 01/24/2024 11:12:36 01/23/20 24 01/24/2024 MYNOR+L IPASE amylase 41 U/L 31-110 Not Available [facility] ([facility]) [address] [facility], [place], [address], 01/24/2024 11:12:37 01/23/20 24 01/24/2024 MYNOR+L IPASE lipase 22 U/L 14-72 Not Available [facility] ([facility]) [address] [place], [address], 01/24/2024 11:12:37 01/23/20 24 01/24/2024 VITAM IN [...] IOM (Inst itute of Medic ine). 2010. Dieta ry refer ence intak es for calci um and D. Russel elias [place]: The Natio nal [facility] Press . 2. Luna CRAWFORD, Talon posadas [place], Hroacio off-F errar i ALBARADO, et al. Evalu ation , treat ment, and preve ntion of vitam in D defic iency : an Endoc rine Socie ty clini theo pract ice guide line. JCEM. 2010; 96(7) :1911 -30. Not Available [facility] ([facility]) [address] [place], [address], 01/24/2024 11:12:37 05/11/20 24 05/12/2024 LIPID PANEL cholesterol, total 177 mg/dL 100-19 9 Not Available [facility] ([facility]) [address] [place], [address], 05/12/2024 08:23:26 05/11/20 24 05/12/2024 LIPID PANEL triglyceride s 251 mg/dL 0-149 above high normal Not Available [facility] ([facility]) [address] [place], [address], 05/12/2024 08:23:26 05/11/20 24 05/12/2024 LIPID PANEL HDL cholesterol 41 mg/dL >39 Not Available [facility] [address] [place], [address], 05/12/2024 08:23:26 05/11/20 24 05/12/2024 LIPID PANEL VLDL cholesterol theo 42 mg/dL 5-40 above high normal Not Available [facility] ([facility]) [address] [place], [address], 05/12/2024 08:23:26 05/11/20 24 05/12/2024 LIPID PANEL LDL chol calc ([facility]) 94 mg/dL 0-99 Not Available [facility] [address] [place], [address], 05/12/2024 08:23:26 05/11/20 24 05/12/2024 COMP. METAB OLIC PANEL (14) glucose 80 mg/dL 70-99 Not Available [facility] ([facility]) [address] [place], [address], 05/12/2024 08:23:27 05/11/20 24 05/12/2024 COMP. METAB OLIC PANEL (14) BUN 7 mg/dL 6-20 Not Available [facility] ([facility]) [address] [place], [address], 05/12/2024 08:23:27 05/11/20 24 05/12/2024 COMP. METAB OLIC PANEL (14) creatinine 0.55 mg/dL 0.57-1 .00 below low normal Not Available [facility] ([facility]) [address] [facility] [place], [address], 05/12/2024 08:23:27 05/11/20 24 05/12/2024 COMP. METAB OLIC PANEL (14) eGFR 126 mL/mi n/1.7 3 >59 Not Available [facility] ([facility]) [address] [facility] [place], [address], 05/12/2024 08:23:27 05/11/20 24 05/12/2024 COMP. METAB OLIC PANEL (14) BUN/creatini ne ratio 13 9-23 Not Available [facility]) [address] [facility] [place], [address], 05/12/2024 08:23:27 05/11/20 24 05/12/2024 COMP. METAB OLIC PANEL (14) sodium 138 mmol/ L 134-14 4 Not Available [facility] ([facility]) [address] [place] [place], [address], 05/12/2024 08:23:27 05/11/20 24 05/12/2024 COMP. METAB OLIC PANEL (14) potassium 4.5 mmol/ L 3.5-5. 2 Not Available [facility] ([facility]) [address] [facility] [place], [address], 05/12/2024 08:23:27 05/11/20 24 05/12/2024 COMP. METAB OLIC PANEL (14) chloride 101 mmol/ L 96-106 Not Available [facility] ([facility]) [address] [place], [address], 05/12/2024 08:23:27 05/11/20 24 05/12/2024 COMP. METAB OLIC PANEL (14) carbon dioxide, total 24 mmol/ L 20-29 Not Available [facility] ([facility]) [address] [place], [address], 05/12/2024 08:23:27 05/11/20 24 05/12/2024 COMP. METAB OLIC PANEL (14) calcium 9.2 mg/dL 8.7-10 .2 Not Available [facility] ([facility]) [address] [place], [address], 05/12/2024 08:23:27 05/11/20 24 05/12/2024 COMP. METAB OLIC PANEL (14) protein, total 7.0 g/dL 6.0-8. 5 Not Available [facility] ([facility]) [address] [place], [address], 05/12/2024 08:23:27 05/11/20 24 05/12/2024 COMP. METAB OLIC PANEL (14) albumin 4.1 g/dL 4.0-5. 0 Not Available [facility] ([facility]) [address] [place], [address], 05/12/2024 08:23:27 05/11/20 24 05/12/2024 COMP. METAB OLIC PANEL (14) globulin, total 2.9 g/dL 1.5-4. 5 Not Available [facility] ([facility] [address] [facility] [place], [address], 05/12/2024 08:23:27 05/11/20 24 05/12/2024 COMP. METAB OLIC PANEL (14) bilirubin, total 0.3 mg/dL 0.0-1. 2 Not Available [facility] ([facility]) [address] [place], [address], 05/12/2024 08:23:27 05/11/20 24 05/12/2024 COMP. METAB OLIC PANEL (14) alkaline phosphatase 69 IU/L 44-121 Not Available [facility]) [address] [place], [address], 05/12/2024 08:23:27 05/11/20 24 05/12/2024 COMP. METAB OLIC PANEL (14) AST (SGOT) 68 IU/L 0-40 above high normal Not Available [facility] ([facility]) [address] [place], [address], 05/12/2024 08:23:27 05/11/20 24 05/12/2024 COMP. METAB OLIC PANEL (14) ALT (SGPT) 125 IU/L 0-32 above high normal Not Available [facility] ([facility]) [address] [facility], [place], [address], 05/12/2024 08:23:27 06/30/20 24 07/01/2024 IGP, APTIM A HPV, RFX 16/18 ,45 HPV aptima NEGATI VE negati ve This nucle ic acid ampli ficat ion test detec ts fourt een high- risk HPV types (16,1 8,31, 33,35 ,39,4 5,51, 52,56 ,58,5 9,66, 68) witho ut diffe renti ation . Not Available [facility] ([facility]) [address] [place], [address], 07/05/2024 15:17:30 06/30/20 24 07/05/2024 IGP, APTIM A HPV, RFX 16/18 ,45 diagnosis: COMMEN T NEGAT PARTH FOR INTRA EPITH ELIAL OLIVIA Kaiser OR ANDRE VALLES . Not Available [facility] ([facility]) [address] [facility], [place], [address], 07/05/2024 15:17:30 06/30/20 24 07/05/2024 IGP, APTIM A HPV, RFX 16/18 ,45 specimen adequacy: SANDI Sanchez Satis facttonie mcmanus for evalu ation . Endoc ervic al and/o r squam ous metap lasti c cells (endo cervi theo compo nent) are prese nt. Not Available [facility] ([facility]) [address] [facility], [place], [address], 07/05/2024 15:17:30 06/30/20 24 07/05/2024 IGP, APTIM A HPV, RFX 16/18 ,45 clinician provided ICD10: SANDI Sanchez Z01.4 11 Not Available [facility] ([facility]) [address] [facility], [place], [address], 07/05/2024 15:17:30 06/30/20 24 07/05/2024 IGP, APTIM A HPV, RFX 16/18 ,45 performed by: SANDI mcdaniel Cytot giovanna sanchez (ASCP ) Not Available [facility] ([facility]) [address] [facility], [place], [address], 07/05/2024 15:17:30 06/30/20 24 07/05/2024 IGP, APTIM A HPV, RFX 16/18 ,45 . . Not Available [facility] ([facility]) [address] [place], [address], 07/05/2024 15:17:30 06/30/20 24 07/05/2024 IGP, APTIM A HPV, RFX 16/18 ,45 note: SANDI Sanchez The Pap smear is a scree adrián test lisa colvin to aid in the detec tion of elias ligna nt and malig nant condi tions of the uteri ne cervi x. It is not a diagn ostic proce dure and shoul d not be used as the sole means of detec ting cervi theo cance r. Both false -posi tive and false -nega tive repor ts do occur . Not Available [facility] ([facility]) [address] [place], [address], 07/05/2024 15:17:30 06/30/20 24 07/05/2024 IGP, APTIM A HPV, RFX 16/18 ,45 test methodology: COMMEN T This liqui d based ThinP rep(R ) pap test was tom colvin with the use of an image guide justus carrillo Not Available [facility] ([facility]) [address] [place], [address], 07/05/2024 15:17:30 06/30/20 24 07/05/2024 IGP, APTIM A HPV, RFX 16/18 ,45 HPV genotype reflex COMMEN T Crite cristina not met, HPV Genot ype not perfo rmed. Not Available [facility] ([facility]) [address] [place], [address], 07/05/2024 15:17:30 12/23/19 25 12/23/2024 pregn moni test, urine HCG positi ve Not Available In-Office Order Internal Use Only DO Not Attach Compendium DO Not Attach Compendium, Do Not Delete/merge, [id number] 12/23/2024 12:43:37 Result Notes None recorded. 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 Keith Beck [facility] Attn: Accountin g,[address] [facility], [place], [address], [place] [facility] 2 16:04:26 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 [id number] 9109 Completed 2019 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 Vivien Garcia RN null, [place] [facility] 1 11:15:20 Body mass index 30+ - obesity 423506130 Active 2020 Keith Beck [facility] Attn: Accountin g,[address] [facility], [place], [address], [place] - [facility] 2 16:04:26 Vitamin D deficien cy 48931067 Active 2020 Keith Beck [facility] Attn: Accountin g,[address] [facility], [place], [address], [place] - [facility] 2 16:04:26 Chronic thoracic back pain 08424011569 9103 Active 2020 Keith Beck [facility] Attn: Accountin g,[address] [facility], [place], [address], [place] [facility] 2 16:04:26 Abnormal liver function 68197461 Active 2020 Keith Beck [facility] Attn: Accountin g,[address] [facility], [place], [address], [place] [facility] 2 16:04:26 Impaired glucose toleranc e 3105830 Active 2020 Keith Beck [facility] Attn: Accountin g,[address] [facility], [place], [address], [place] [facility] 2 16:04:26 Non-alco holic fatty liver 836738169 Active 2021 Vivien [place] RN [place], [place] [facility] 4 11:55:34 Migraine with aura 0194831 Active 2023 Vivien [place], [place] [facility] 4 11:55:30 Steatoti c liver disease 380694494 Active 2023 Vivien [place] RN [place], [place] [facility] 4 11:55:39 Initial prescrip tion of oral contrace ption Active 2023 TANIYA White Attn: Nela rizo,[address] [facility], [place], [address], [facility] - [facility] 4 12:39:34 Mixed hyperlip idemia 718454374 Active 2023 TANIYA White Attn: Nela rizo,[address] [facility], [place], [address], [place] - [facility] 4 17:15:26 Problem Notes None recorded. Procedures Surgical History Date Name Laterality Status Provider Name and Address Organization Details Recorded Time 4 Date of Last Pap Smear completed TANIYA White Attn: Accounting,[address] [place], [address], [place] [facility] 12/23/2024 12:54:53 4 Control Implant Removal completed TANIYA White Attn: Accounting,[address] [place], [address], [place] [facility] 02/09/2024 12:41:59 1 Control Implant Insertion completed TANIYA White Attn: Accounting,[address] [place], [address], [place] [facility] 02/08/2021 13:02:01 Imaging Results [...] Not Available Not Available Sprintec (28) 0.25 mg-0.035 mg tablet TAKE ONE TABLET BY MOUTH EVERY [...] Not Available Not Available Not Avai lable [facility] RediChew Rx 1.4 mg chew tablet,imme diate - delayed release Chew 1 tablet every day by oral route. 02/02 completed Not Available Not Available Not Available Vitals Date Recorded Body height Body mass index (BMI) Body weight Oxygen saturation Oxygen saturation in Arterial blood by Pulse oximetry Heart rate Body temperature Systolic And Diastolic Provider Name and Address Organization Details Last Updated DateTime 5 154.94 cm 33.7 kg/m2 05287.2 4 g 100 % 100 % 80 /min 97.8 [degF] 102/70 mm[Hg] Brigid sanchez [place] - [facility] 5 12:43:27 Date Recorded Body height Body mass index (BMI) Body weight Body temperature Heart rate Systolic And Diastolic Provider Name and Address Organization Details Last Updated DateTime 4 154.94 cm 34.4 kg/m2 88282.2 1 g 98.1 [degF] 82 /min 110/64 mm[Hg] Josefina Pham MA [facility] 4 12:31:38 Date Recorded Body height Provider Name an d Address Organization Details Last Updated DateTime 02/19/2024 154.94 cm Josefina alvarenga MA [facility] 02/19/2024 12:42:56 Date Recorded Body mass index (BMI) Body weight Oxygen saturation Oxygen saturation in Arterial blood by Pulse oximetry Heart rate Body temperature Systolic And Diastolic Provider Name and Address Organization Details Last Updated DateTime 33.9 kg/m2 55151.8 3 g 98 % 98 % 60 /min 98.3 [degF] 100/78 mm[Hg] Brigid sanchez MA [facility] 13:18:24 Date Recorded Body height Body mass index (BMI) Body weight Heart rate Body temperature Systolic And Diastolic Provider Name and Address Organization Details Last Updated DateTime 154.94 cm 33.7 kg/m2 40522.2 4 g 84 /min 98 [degF] 100/62 mm[Hg] Vivien Garcia RN [facility] 12:10:13 Date Recorded Body height Provider Name an d Address Organization Details Last Updated DateTime 06/30/2024 154.94 cm Charityivy Radha alvarenga [facility] 06/30/2024 10:21:55 Date Recorded Body mass index (BMI) Body weight Body temperature Oxygen saturation Oxygen saturation in Arterial blood by Pulse oximetry Heart rate Systolic And Diastolic Provider Name and Address Organization Details Last Updated DateTime 33.5 kg/m2 81388.6 5 g 98 [degF] 97 % 97 % 86 /min 100/70 mm[Hg] Brigid sanchez MA [facility] 4 10:31:01 Social History Question Answer Notes LastModified by Organizat ion Details LastModified Time Tobacco Smoking Status Never Smoker LAZARO [place], [facility] 05/11/2020 10:27:33 Do You Have An Advance Directive? No Information not available 05/11/2020 If You Are [...] No Information not available 02/02/2021 Are You Deaf Or Do You Have Serious Difficulty Hearing? No Information not available 02/02/2021 What Type Of Diet Are You Following? REGULAR Information not available 05/11/2020 Which Illicit Or Recreational Drugs Have You Used? None Information not available 05/11/2020 Education 10 Information no t available 05/11/2020 Have There Been Any Changes [...] Do You Have A Medical Power Of Stonemason Apprentice? Yes [email or web address] Information not available 11/19/2022 What [...] Smoke? No Information no t available 05/11/2020 How Much Tobacco Do You Smoke? No Information not available 05/11/2020 Smoking Pre- No Information not available 05/11/2020 General Stress Level Low Information not available 05/11/2020 Do You Use Sunscreen Routinely? No Information not available 05/11/2020 Has Tobacco Cessation Counseling Been Provided? No Information not available 01/14/2024 On What Date Was Tobacco Cessation Counseling Provided? 12/23/2024 Information not available 12/23/2024 How Many Years Have You Smoked Tobacco? 0 Information not available 05/11/2020 Sex: Female Functional Status Question Answer Note LastModified by Organizat ion Details LastModified Time Do you use any illicit or recreational drugs? No Information not available 02/02/2021 Do you or have you ever used any other forms of tobacco or nicotine? No Information not available 02/02/2021 What is your level of alcohol consumption? None Information not available 05/11/2020 Do you or have you ever used smokeless tobacco? Never used smokeless tobacco Information not available 05/11/2020 Are you currently employed? No Information not available 05/11/2020 Are you able to care for yourself? 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 Never used electronic cigarettes Information not available 05/11/2020 What is your exercise level? None Information not available 05/11/2020 Mental Status Question Answer Note LastModified by Organization D etails LastModified Time Do you feel stressed (tense, restless, nervous, or anxious, or unable to sleep at night)? [id number] Information not available 10/22/2022 Family History Relationship Description Onset Age of [...] 2 completed TANIYA White Attn: Accounting[address] [place], [address], [place] [facility] 10/22/2022 17:04:58 Influenza, split virus, quadrivalent, preservative 3 completed TANIYA White Attn: Accounting[address] [place], [address], [place] [facility] 09/09/2023 17:47:32 Past Encounters Encounter ID Performer Location Encounter Start Date Encounter Closed Date Diagnosis/Indication Diagnosis SNOMED-CT Code Diagnosis ICD10 Code Diagnosis Note [id number] MD Ofelia Askew (CAMP TENDER) [address] [place] [address] 05/11/2020 09:55:40 05/12/2020 07:58:51 Routine care 412840108 Z34.90 Venereal d isease screening 547116939 Z11.3 screening 2437 04101 Z36.85 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 Administra tion of influenza vaccine 54394841 Z23 [id number] MD Ofelia Askew (CAMP TENDER) [address] [place] [id number] 0 06/14/2020 10:35:05 06/15/2020 09:01:16 Routine care 779688506 Z34.90 Familial s hort stature 912147872 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 She is breast feeding. She will use condoms for now until insertion. 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 , nausea She is BF use Tylenol extra strength prn samples given [id number] Kendrick Fermin MD [facility] [address] [address] 4 04/03/2021 10:21:56 04/04/2021 19:39:42 Chronic thoracic back pain 6871022898 38068 M54.6 [id number] Ramesh Gomez MD [facility] [address] [phone] 4 05/07/2021 10:17:07 05/08/2021 14:13:12 Gynecologic examination 99230649 Z01.411 Self breast exam calcium rich foods handout vitamin D 2000 iu daily exercise weight loss diet Body mass index 30+ - obesity 746800998 Z68.30 Ht 5' 1 Healthy weight range 100-130 Familial s hort stature 608199207 R62.52 Pain of mu ltiple joints 04635646 M25.50 Family his tory of diabetes mellitus in first degree relative 955558034 Z83.3 Mother HIV screening 271808381 Z11.4 Loss of hair 371127907 L 65.9 Chronic th oracic back pain 5266848165 68506 M54.6 [id number] Kendrick Fermin MD [facility] [address] [place] [address] 05/22/2021 12:32:31 05/23/2021 07:22:07 Abnormal liver function 60808818 K76.89 Body mass index 30+ - obesity 336642087 Z68.30 Ht 5' 1 Healthy weight range 100-130 Vitamin D deficiency 347 07737 E55.9 Vitamin D 24Start Rx Vitamin D2 44937 IU once weekly for 12 weeksonce you complete RX buy otc vitamin D3 1000 IU once daily Impaired g lucose tolerance 2194256 R73.02 HA1C 5.8 Watch your weight. A [...] smoke. Smoking can make prediabete s worse. [id number] Kendrick Fermin MD [facility] [address] [place] [address] 05/29/2021 12:28:27 05/30/2021 07:45:24 Abnormal liver function 19739200 K76.89 [id number] Kendrick Fermin MD [facility] [address] [place] [address] 06/06/2021 11:20:45 06/07/2021 07:39:52 Chronic thoracic back pain 5440281860 46879 M54.6 will dc ibuprofen and flexeril Body mass index 30+ - obesity 225230551 Z68.30 Ht 5' 1 Healthy weight range 100-130 Steatotic liver disease 204494269 K76.0 no alcoholno tylenolAST 102.8ALT 201.3 Abnormal l iver function 31055014 K76.89 06/05/2021 u/s liver echogenic with common bile duct measuring 0.22cm and normal upper limits is 0.6cm7/6/2 021AST 102.8ALT 201.3 [id number] Kendrick Fermin MD [facility] [address] [place] [address] 07/19/2021 10:48:56 07/20/2021 10:00:02 Steatotic liver disease 735871946 K76.0 no alcoholno tylenolAST 102.8ALT 201.3 [id number] Kendrick Fermin MD [facility] [address] [place] [address] 10/22/2022 15:40:14 10/25/2022 09:45:01 Abnormal liver function 63304567 K76.89 06/05/2021 u/s liver echogenic with common bile duct measuring 0.22cm and normal upper limits is 0.6cm762 021AST 102.8ALT 201.3Patie nt was referred to GI 06/06/2021 but she did not show to [facility] t Administra tion of influenza vaccine 25094870 Z23 Non-alcoho lic fatty liver 867241682 K76.0 US liver shows fatty liver06/05 u/s liver echogenic with common bile duct measuring 0.22cm and normal upper limits is 0.6cm Depression screening 171 095389 Z13.31 PHQ 2-9 negative Mental hea lth screening 817867368 Z13.39 MAURICE-7 negative [id number] Chrystal Cheema DO [facility] [address] [place] [address] 11/19/2022 10:26:18 11/21/2022 10:40:23 Steatotic liver disease 394015837 K76.0 Likely NAFLD. Patient counseled at length regarding dietary changes and exercise targeting a sustained 5% - 10% weight loss. Treatment should be focused on optimizing control of the metabolic syndrome, which should reduce risk of cardiovasc ular disease and severity of liver disease. The use of a statin in NAFLD is safe, with no increased risk of drug-induc ed hepatotoxi city.Arturo nue to work with PCP for blood sugar [...] T 10/22/2022 WNLamylase and lipase 10/22/2022 WNL [id number] Wade Ibarra MD [facility] [address] [address] 03/11/2023 12:34:43 03/12/2023 15:09:30 Body mass index 30+ - obesity 147634839 Z68.30 Ht 5' 1 Healthy weight range 100-130 Obesity 051572498 E66.9 BMI 30.2 Abnormal v aginal bleeding 960508504 N93.9 Had nexplanon insertion on 02/08/2021H as irregular vaginal bleedingMe nses for 15 days light spotting sometimes clotswill try ibuprofen 400mg every 6 hrs prn Depression screening 171 702811 Z13.31 PHQ 2-9 negative Mental hea lth screening 355436671 Z13.39 MAURICE-7 negative [id number] Kendrick Fermin MD [facility] [address] [address] 04/16/2023 11:21:02 04/18/2023 15:13:30 Body mass index 30+ - obesity 464213998 Z68.30 Ht 5' 1 BMI 33.9 Healthy weight range 100-130 Abnormal v aginal bleeding 774406961 N93.9 Had nexplanon insertion on 02/08/2021H as irregular vaginal bleedingMe nses for 15 days light spotting sometimes clotswill try ibuprofen 800mg every 6 hrs prn Obesity 122614514 E66.9 BMI 33.9 Depression screening 171 459362 Z13.31 PHQ 2-9 negative Mental hea lth screening 851856572 Z13.39 MAURICE-7 negative Serous otitis media 8032 7007 H65.03 [id number] Kendrick Fermin MD [facility] [address] [address] 09/09/2023 15:28:10 09/23/2023 15:43:25 Body mass index 30+ - obesity 944263397 Z68.30 Ht 5' 1 BMI 33.9 Healthy weight range 100-130 Non-alcoho lic fatty liver 025297196 K76.0 US liver shows fatty liver06/05 u/s liver echogenic with common bile duct measuring 0.22cm and normal upper limits is 0.6cm12/03 repeat u/s liver shows diffuse hepatic steatosis Administra tion of influenza vaccine 86111367 Z23 Vitamin D deficiency 347 53353 E55.9 Vitamin D 24 buy otc vitamin D3 1000 IU once daily Hyperlipid emia screening 908753884 Z13.220 Impaired g lucose tolerance 1382782 R73.02 09/09/2023 HA1C 5.8 Watch your weight. [...] make prediabete s worse. Depression screening 171 863840 Z13.31 PHQ 2-9 negative Mental [facility]a [facility] screening 992372563 Z13.39 MAURICE-7 negative [id number] Kendrick Fermin MD [facility] [address] [address] 01/14/2024 16:45:47 01/21/2024 11:09:45 Obesity 310961969 E66.9 BMI 33.7Has lost 4 pounds Abnormal l iver function 18053166 K76.89 06/05/2021 u/s liver echogenic with common bile duct measuring 0.22cm and normal upper limits is 0.6cm 021AST 102.8ALT 201.3Patie nt was referred to [facility] 06/06/2021 -patient seen by [facility] GUERRA on [...] remedies, please call the office first.No Tylenol Steatotic liver disease 010725033 K76.0 Likely NAFLD. Patient counseled at length regarding dietary changes and exercise targeting a sustained 5% - 10% weight loss. Treatment should be focused on optimizing control of the metabolic syndrome, which should reduce risk of cardiovasc ular disease and severity of liver disease. The use of a statin in NAFLD is safe, with no increased risk of drug-induc ed hepatotoxi city.Arturo miranda to work with PCP for blood [...] lipase 10/22/2022 WNL Vitamin D deficiency 347 01486 E55.9 Vitamin D 16Rx Vitamin D2 52977 IU once weekly for 12 weeksbuy otc vitamin D3 1000 IU once daily Acute sinusitis 83441798 J01.90 Migraine with aura 62969 06 G43.109 Depression screening 171 544138 Z13.31 PHQ 2-9 negative Mental hea lth screening 823198174 Z13.39 MAURICE-7 negative [id number] Kendrick Fermin MD [facility] [address] [place] [address] 01/23/2024 13:58:01 01/26/2024 14:37:25 Abnormal liver function 14140928 K76.89 Vitamin D deficiency 347 02107 E55.9 [id number] Wade Ibarra MD [facility] [address] [address] 02/09/2024 12:11:15 02/18/2024 13:39:12 Contraception care management 387325001 Z30.09 Discussed contracept krysta risks and benefits Handout on contracept parth methods Condoms as necessary Removal of subcutaneous contraceptive 161849867 Z30.46 Patient Had nexplanon insertion on 02/08/2021 atient wants removal todayPatie nt will start oral control Initial pr escription of oral contraception 137961332 Z30.011 Body mass index 30+ - obesity 498391249 Z68.30 Ht 5' 1 BMI 34.4 Healthy weight range 100-130 Depression screening 171 958742 Z13.31 PHQ 2-9 negative Mental hea lth screening 073388868 Z13.39 MAURICE-7 negative [id number] Wade Ibarra MD [facility] [address] [place] [address] 02/19/2024 12:33:45 02/24/2024 11:18:56 Subcutaneous contraceptive implant present 147150939 Z30.42 wound at left upper inner arm area healing Surveillan ce of subcutaneous contraceptive implant done 3960859870 68083 Z30.46 Body mass index 30+ - obesity 161332415 Z68.30 Ht 5' 1 BMI 33.9 Healthy weight range 100-130 Depression screening 171 331386 Z13.31 PHQ 2-9 negative Mental hea lth screening 149952341 Z13.39 MAURICE-7 negative [id number] Wade Ibarra MD [facility] [address] [place] [phone] 05/11/2024 11:50:25 05/13/2024 09:30:48 Body mass index 30+ - obesity 851282482 Z68.30 Ht 5' 1 BMI 33.7 Healthy weight range 100-130 Obesity 562256323 E66.8 BMI 33.7Has lost 4 pounds Surveillan ce of oral contraception 888641459 Z30.41 Patient wishes to stop oral control for now Abnormal l iver function 92917551 K76.89 12/03/2022 repeat u/s liver shows diffuse hepatic steatosis4AST 75ALT 116 Steatotic liver disease 885533125 K76.0 Likely NAFLD. Patient counseled at length regarding dietary changes and exercise targeting a sustained 5% - 10% weight loss. Treatment should be focused on optimizing control of the metabolic syndrome, which should reduce risk of cardiovasc ular disease and severity of liver disease. The use of a statin in NAFLD is safe, with no increased risk of drug-induc ed hepatotoxi city.Arturo miranda to work with PCP for blood [...] and lipase 10/22/2022 WNL Mixed hyperlipidemia 267 643138 E78.2 09/09/2023 cho 180trig 276HDL 38LDL 127Avoid all breads, potatoes, cereal, pasta, rice, margarine, refined sugars, milk yogurt, ice cream, juices, soda (including diet), beer, and manmade or manufactur ed desserts. Enjoy steak, fish, chicken (no skin), pork, butter, vegetables , beans, nuts, whole eggs, cheese (low fat or skim), cream in your coffee. Non-alcoho lic fatty liver 952074629 K76.0 US liver shows fatty liver06/05 u/s liver echogenic with common bile duct measuring 0.22cm and normal upper limits is 0.6cm12/03 repeat u/s liver shows diffuse hepatic steatosis [id number] Wade Ibarra MD [facility] [address] [place] [address] 06/30/2024 10:17:49 07/13/2024 13:40:01 Gynecologic examination 26461883 Z01.411 Normal Motor Patrol Operator examLast pap 05/07/2021 normal cytology due in 2023Last mammogram under 40colonosc opy Under 45STD screen not done IBCCP doesnt cover itSelf breast examcalciu m rich foods handoutvit dinh D 1000 iu dailyexerc ise 40-50 minutes 4-5 days per weekweight lossdietLi fetime breast cancer risk is 6.1% using SOFYA model Body mass index 30+ - obesity 031450521 Z68.30 BMI 33.5Ht 5' 1 Healthy weight range 100-130 Familial s hort stature 945696390 R62.52 Inflammati on of cervix 61306186 N72 [id number] Wade Ibarra MD [facility] [address] [place] [address] 12/23/2024 12:36:01 12/24/2024 13:30:24 Urine test positive 037709578 Z32.01 LNMP 11/03/2024 Approx gest 7 [email or web address] 08/10/2025 Body mass index 30+ - obesity 765284812 Z68.30 BMI 33.7Ht 5' 1 Healthy weight range 100-130 Health Concerns Section Related Observation LastModified by Organization Detai ls LastModified Time None Recorded Concern Status LastModified by Organization Details LastModified Time None Recorded Advance Directives Directive N: Payers Insurance Date Sequence Insurance Name Policy Number Policy Lebron Covered Member ID Lebron Member ID Guarantor Name 12/23/2024 1 MEDICAID - MOVED-MGRHOLD - PENDING [id number] Elsa Zhen-G aleana 06/30/2024 [facility] Elsa Zhen-Ga maicol [id number] Elsa Zhen-G aleana 12/23/2024 1 *SELF PAY* Gu adalupe Zhen-G aleana 02/05/2021 SLIDING FEE SCHEDULE - DISCOUNT Elsa Zhen-G aleana 05/24/2020 1 MEDICAID - MOVED-MGRHOLD - PENDING [id number] Elsa Zhen-G aleana 05/11/2024 2 [place] [facility] PUBLIC AID Elsa Zhen-Ga maicol [id number] Elsa Zhen-G aleana 05/11/2024 1 [place] [facility] PUBLIC AID Elsa Zhen Cornelia [id number] Elsa Gariago-Sallie aleana 12/23/2024 SLIDING FEE SCHEDULE - DISCOUNT Elsa Zhen-G aleana 04/27/2025 2 [facility] - DOS ON OR AFTER 21 (MEDICAID REPLACEMENT - HMO) Elsa Zhen-Edwar milian [id number] Elsa Gariago-G aleana Notes Date Note Type Note Provider Name and Address Organization Details Recorded Time 02/09/2024 text/html 28 y/o HF presen ts for nexplanon removal. The patient had insertion in 2020. The patient wants to start oral control. She has no contraindications. Last pap 04/2021-needs to schedule for wwe. Wade Ibarra MD Attn: Accounting[address] [facility], [place], [address], [place] [facility] 02/10/2024 10:31:58 02/19/2024 text/html 28 y/o HF presen ts for nexplanon removal wound check. The patient has been feeling well. Her Last pap 04/2021-needs to schedule for wwe. TANIYA White Attn: Accounting[address] [facility], [place], [address], [place] [facility] 02/19/2024 13:25:34 05/11/2024 text/html [...] planning method. TANIYA White Attn: Accounting[address] [facility], [place], [address], [place] [facility] 05/11/2024 17:16:10 06/30/2024 text/html Annual GYNReport ed [...] normal. Wade Ibarra MD Attn: [address]ing[address] [place], [address], [facility] 06/30/2024 11:23:01 12/23/2024 text/html 29 y/o L3 HF presents for test. Her Lnmp was on 11/06/2024. Her urine test today is positive. She denies any breast pain, vaginal bleeding. She will go to [place] for PNC. TANIYA White Attn: Accounting[address] [place], [address], [facility] 12/23/2024 13:07:06 OBGyn Episode Ob Episode Information Episode Created Date Number of Fetuses Patient Bloodtype Patient rh Status Prepregnancy Weight lbs Domestic Partner Domestic Partner Phone Father Name Construction Framer Status 05/11/20 20 1 CLOSED Fetus Data First Name Last Name Admitted to NICU Weight (g) Sex Living Outcome Pediatric Complications Fetus ID Race Codes Race Delivery Type F Full Term 02469 Standard Vaginal Delivery Mario Calculation Initial Mario [...] Domestic Partner Domestic Partner Phone Father Name Construction Framer Status 05/11/20 20 1 CLOSED Fetus Data First Name Last Name Admitted to NICU Weight (g) Sex Living Outcome Pediatric Complications Fetus ID Race Codes Race Delivery Type F Full Term 75253 Standard Vaginal Delivery Mario Calculation Initial Mario [...] Complications Tubal Sterilization Discharge Date Comments 2 Regional- idural 40 false Born in [place] Discharge Information Feeding Method Contraceptive Method Maternal HG B and HCT Levels Ob Episode Information Episode Created Date Number of Fetuses Patient Bloodtype Patient rh Status Prepregnancy Weight lbs Domestic Partner Domestic Partner Phone Father Name Construction Framer Status 05/11/20 20 1 O Positive CLOSED Fetus Data First Name Last Name Admitted to NICU Weight (g) Sex Living Outcome Pediatric Complications Fetus ID Race Codes Race Delivery Type silvia trivedi false 2908.65 87 M true Full Term 57285 2106-3 White Vaginal Problems Problem Notes Problem Name Start Date End Date Resolution Snomed Code Note Familial short stature 0 356119503 Homozygous methylenetetrahydrofolate reductase mutation 0 [id number] homozygous for the MTHFR C677T variant Mario [...] Gestation 0 [email or web address] 06/05/2020 12/12/19 21 0 Pre- Flowsheet Flowsheet Date 05/11/2020 Bauer Score Blood Edema Fundus Height Fundus Units Glucose Ketones Leukocytes Nitrite Labor Signs Protein Cervic Dilation Cervic Effacement Cervic Station neg none 8 wks none negative none neg Type Weight in lbs Pre/Post Dialysis Refused With clothes 160.429044343760 BP Diastolic BP Location Tested BP Systolic BP Type 68 110 sitting Fetus Heart Rate Present Fetus Movement Comments nob Flowsheet Date 06/14/2020 Bauer Score Blood Edema Fundus Height Fundus Units Glucose Ketones Leukocytes Nitrite Labor Signs Protein Cervic Dilation Cervic Effacement Cervic Station neg none none negative none neg Type Weight in lbs Pre/Post Dialysis Refused With clothes 157.862078397659 BP Diastolic BP Location Tested BP Systolic [...] Estim ated Date of Delivery false Thalassemia ([place]inean, Venezuelan, Mediterranean, Or Background): MCV < 80 false Neural Tube Defect (Meningomyelocele, Spina Bifi da, Or Anencephaly) false Congenital Heart Defect false Down Syndrome false Edenilson-Sachs (eg, Orthodoxy, Cajun, Kazakh-Catoosa) f alse Bennie Disease false Sickle Cell Disease Or Trait () false Hemophilia Or Other Blood Disorders false Muscular Dystrophy false Cystic Fibrosis false Green's Chorea false Mental Retardation/Autism false If Yes, [...]
[2025-05-26 10:18] LABS: Hematocrit 37.7 % (37.0-47.0); Hemoglobin 11.7 g/dL (12.0-15.0); Mean Corpuscular HGB Conc 31.0 g/dl (32-36); Mean Corpuscular Hemoglobin 24.3 pg (26-34); Mean Corpuscular Volume 78.2 fl (80-100); Platelet Count Result 248 k/mm3 (150-375); Red Blood Count 4.82 M/mm3 (4.2-5.4); White Blood Count 6.8 K/mm3 (4.5-10.0)
[2025-05-26 10:27] LABS: Glucose 1 Hour PP 50gm Dose 136 mg/dL
[2025-05-26 10:59] LABS: Hepatitis B Surface Antigen Negative (Negative)
== END 2025-05-26 08:59 | disposition home or self-care (01) ==
PROVIDERS: PCP Nurse Practitioner Obstetrics & Gynecology; Visit Provider Obstetrics & Gynecology
DX: Z34.90 Encounter for supervision of normal pregnancy, unspecified, unspecified trimester (principal)
CPT/HCPCS: 36415; 82947; 85027; 87340

== ENCOUNTER 2025-06-17 07:10 | Outpatient (CLI) | payer OTHER, SELFPAY ==
--- OUTSIDE RECORDS SUMMARY | 2025-06-17 07:14 | XMS_ITS | Data Portability ---
Author Organization [facility] [place] Address [address] [place] [address] [place] [address] Assessment No assessment recorded. Plan of Treatment Reminders Order Date Submit Date Provider Last Modified By Organization Details Last Modified Time Details Appointments None recorded. Lab None recorded. Referral None recorded. Procedures None recorded. Surgeries None recorded. Imaging US, obstetric, 2nd or 3rd trimester 2019 020 [email or web address] [facility], [address], [place], [address], 0 15:26:47 Medication Orders None recorded. Patient TargetsNo targets recorded. Patient InstructionsNo instructions recorded. Reason for Referral None Reported. Results Created Date Observation Date Name Description Value Unit Range Abnormal Flag Note LastModifiedBy Organization Detail LastModifiedTime 01/14/20 21 01/14/2021 US, obste tric, 2nd or 3rd trime ster interpretati on Not Available [facility] [address], [place], [address], 08/03/2020 15:00:16 08/03/20 20 US, obste tric, 2nd or 3rd trime ster No observ ation record ed. [email or web address] [address], [place], [address], 08/04/2020 15:07:43 08/03/20 20 US, obste tric, 2nd or 3rd trime ster No observ ation record ed. camille [address], [place], [address], 12/14/2020 14:28:37 Result Notes None recorded. Medical [...] SNOMED-CT Code Diagnosis ICD10 Code Diagnosis Note [id number] Malik Antonio MD [facility] [address] [address] 07/11/2020 11:44:41 03/27/2021 10:05:33 [id number] Malik Antonio MD [facility] [address],[facility] [place] [address] 08/03/2020 14:02:09 08/03/2020 15:11:52 screening for malformation 927432651 Z36.3 Health Concerns Section Related Observation LastModified by Organization Detai ls LastModified Time None Recorded Concern Status LastModified by Organization Details LastModified Time None Recorded Advance Directives Directive None Recorded Payers Insurance Date Sequence Insurance Name Policy Number Policy Lebron Covered Member ID Lebron Member ID Guarantor Name 08/03/2020 1 [place] [facility] [place] AID Elsa Locke [id number] Elsa Locke OBGyn Episode No OBEpisode recorded.
--- OUTSIDE RECORDS SUMMARY | 2025-06-17 07:14 | XMS_ITS | Data Portability ---
Author Organization [facility] DEVONMarie Stone Address [address] [place] [address] Care Team Providers Care Content Checker Name Role Phone CRUZITOLOIS FONSECATIFFANY Primary Care Provider Assessment No assessment recorded. Plan of Treatment Reminders Order Date Submit Date Provider Last Modified By Organization Details Last Modified Time Details Appointments None recorded. Lab test, urine 2024 025 doris In-Office Order, Internal Use Only DO Not Attach Compendium DO Not Attach Compendium, Do Not Delete/merge, [id number] 5 13:00:28 cytology report, thin prep, smear or scraping, cervical or vaginal 2023 024 BETSY SETH, [facility], [address], [place], [address], 4 15:17:30 lipid panel, serum 2023 024 HOP BOTTOM SETH, [facility], [address], [place], [address], 4 08:23:26 CMP, serum or plasma 2023 024 HOP BOTTOM SETH, [address] [place] [address], [address], [place], [address], 4 08:23:27 Referral obstetrici an and gynecologi st referral 2024 025 [email or web address] Not available 5 11:51:17 gastroente rologist referral - 01/23/2024 AST 75 ALT 116 Patient was due follow up 11/2023 voices no one told me 2023 024 [facility], [address], [place], [address], 5 12:04:43 Procedures None recorded. Surgeries None recorded. Imaging None recorded. Medication Orders 28 mg iron-800 mcg tablet 2024 025 [email or web address], [address] [place] [address], [id number], 5 10:29:41 metronidaz ole 0.75 % (37.5 mg/5 gram) vaginal gel 2023 024 Estim[facility], [address] [place] [address], [id number], 4 11:20:21 Sprintec (28) 0.25 mg-0.035 mg tablet 2023 024 Estim[facility], [address] [place] [address], [id number], 4 18:10:46 Patient TargetsNo targets recorded. Patient Instructions Encounter Date Encounter Id Patient Instructions Last Modified By Organization Details Last Modified Time 02/09/2024 [id number] aprenda acerca d el peso saludable - [...] Ibarra MD Not available 02/10/2024 10:31:52 02/19/2024 [id number] aprenda acerca d el peso saludable - [learning about healthy weight] yarauz Not available 02/19/2024 13:24:36 ndice de masa corporal: instrucciones de cuidado - [body mass index: care instructions] yarauz Not available 02/19/2024 13:24:36 wound is healing no infection signs schedule for wwe continue your current medicines yarauz Not available 02/19/2024 13:24:36 05/11/2024 [id number] A healthy lifestyle: care instructions yarauz Not [...] Tylenol yarauz Not available 05/11/2024 17:15:47 06/30/2024 [id number] cervicitis: instrucciones de cuidado - [cervicitis: care [...] diet see dentist every 6 months 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 every 1-2 years HIV testing recommendation condoms prn contraceptive options-pt refuses new guidelines--pap with Hpv in 3-5 years--pelvic exam every year Mammogram yearly after age 40 Check B/P once yearly I have reviewed the chart and agree with the provider's assessment and plan -Dr Wade Ibarra MD Not available 06/30/2024 11:22:57 12/23/2024 [id number] aprenda acerca d el peso saludable - [...] Not available 12/23/2024 12:59:09 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 METAB OLIC PANEL (14) glucose 83 mg/dL 70-99 Not Available [facility] [address] [place] [address], [address], 01/23/2024 21:07:48 01/23/20 24 01/23/2024 COMP. METAB OLIC PANEL (14) BUN 9 mg/dL 6-20 Not Available [facility] [address] [place], [address], 01/23/2024 21:07:48 01/23/20 24 01/23/2024 COMP. METAB OLIC PANEL (14) creatinine <=0.46 mg/dL 0.76-1 .27 below low normal Not Available [facility] [address] [place], [address], 01/23/2024 21:07:48 01/23/20 24 01/23/2024 COMP. METAB OLIC PANEL (14) eGFR 132 >=60 Units for eGFR value s are mL/mi n/1.7 3 The eGFR Calcu latio n has not been valid ated for patie nts under the age of 18. If test resul ts are displ ayed for a patie nt under the age of 18, disre pam that value . Not Available [facility] [address] [place], [address], 01/23/2024 21:07:48 01/23/20 24 01/23/2024 COMP. METAB OLIC PANEL (14) BUN/creatini ne ratio 22 9-23 Not Available [facility] [address] [place], [address], 01/23/2024 21:07:48 01/23/20 24 01/23/2024 COMP. METAB OLIC PANEL (14) sodium 137 mmol/ L 134-14 4 Not Available [facility] [address] [place] [address], [address], 01/23/2024 21:07:48 01/23/20 24 01/23/2024 COMP. METAB OLIC PANEL (14) potassium 4.2 mmol/ L 3.5-5. 2 Not Available [facility] [address] [place] [address], [address], 01/23/2024 21:07:48 01/23/20 24 01/23/2024 COMP. METAB OLIC PANEL (14) chloride 103 mmol/ L 96-106 Not Available [facility] [address] [place], [address], 01/23/2024 21:07:48 01/23/20 24 01/23/2024 COMP. METAB OLIC PANEL (14) carbon dioxide, total 25 mmol/ L 20-29 Not Available [facility] [address] [place], [address], 01/23/2024 21:07:48 01/23/20 24 01/23/2024 COMP. METAB OLIC PANEL (14) calcium 9.6 mg/dL 8.7-10 .2 Not Available [facility] [address] [place] [address], [address], 01/23/2024 21:07:48 01/23/20 24 01/23/2024 COMP. METAB OLIC PANEL (14) protein, total 7.3 g/dL 6.0-8. 5 Not Available [facility] [address] [place], [address], 01/23/2024 21:07:48 01/23/20 24 01/23/2024 COMP. METAB OLIC PANEL (14) albumin 3.9 g/dL 4.0-5. 0 Not Available [facility] [address] [place], [address], 01/23/2024 21:07:48 01/23/20 24 01/23/2024 COMP. METAB OLIC PANEL (14) globulin, total 3.4 g/dL 1.5-4. 5 Not Available [facility] [address] [place], [address], 01/23/2024 21:07:48 01/23/20 24 01/23/2024 COMP. METAB OLIC PANEL (14) A/G ratio 1.0 1.2-2. 2 below low normal Not Available [facility] [address] [place], [address], 01/23/2024 21:07:48 01/23/20 24 01/23/2024 COMP. METAB OLIC PANEL (14) bilirubin, total 0.2 mg/dL 0.0-1. 2 Not Available [facility] [address] [place] [address], [address], 01/23/2024 21:07:48 01/23/20 24 01/23/2024 COMP. METAB OLIC PANEL (14) alkaline phosphatase 76 IU/L 44-121 Not Available [facility] [address] [place], [address], 01/23/2024 21:07:48 01/23/20 24 01/23/2024 COMP. METAB OLIC PANEL (14) AST (SGOT) 75 IU/L 0-40 above high normal Not Available [facility] [address] [place] [address], [address], 01/23/2024 21:07:48 01/23/20 24 01/23/2024 COMP. METAB OLIC PANEL (14) ALT (SGPT) 116 IU/L 0-32 above high normal Not Available [facility] [address] [place], [address], 01/23/2024 21:07:48 01/23/20 24 01/23/2024 HEPAT IC FUNCT ION PANEL (7) bilirubin, direct <=0.20 mg/dL 0.00-0 .40 Not Available [facility] [address] [place], [address], 01/23/2024 21:07:49 01/23/20 24 01/24/2024 ACUTE HEPAT ITIS hep A Ab, IgM Negati ve negati ve Not Available [facility] ([facility]) [address] [place], [address], 01/24/2024 11:12:35 01/23/20 24 01/24/2024 ACUTE HEPAT ITIS HBsAg screen Negati ve negati ve Not Available [facility] ([facility]) [address] [place], [address], 01/24/2024 11:12:35 01/23/20 24 01/24/2024 ACUTE HEPAT ITIS hep B core Ab, IgM Negati ve negati ve Not Available [facility] ([facility]) [address] [place], [address], 01/24/2024 11:12:35 01/23/20 24 01/24/2024 ACUTE HEPAT ITIS HCV Ab Non Reacti ve nonrea ctive Not Available [facility] ([facility]) [address] [place], [address], 01/24/2024 11:12:35 01/23/20 24 01/24/2024 INTER PRETA TION: interpretati on: Commen t Not infec paulino with HCV unles s early or acute infec tion is suspe cted (whic h may be delay ed in an immun ocomp romis ed indiv idual ), or other evide nce exist s to indic ate HCV infec tion. Not Available [facility] ([facility]) [address] [facility], [place], [address], 01/24/2024 11:12:36 01/23/20 24 01/24/2024 GGT GGT 29 IU/L 0-60 Not Available [facility] ([facility]) [address] [facility], [place], [address], 01/24/2024 11:12:36 01/23/20 24 01/24/2024 MYNOR+L IPASE amylase 41 U/L 31-110 Not Available [facility] ([facility]) [address] [facility], [place], [address], 01/24/2024 11:12:37 01/23/20 24 01/24/2024 MYNOR+L IPASE lipase 22 U/L 14-72 Not Available [facility] ([facility]) [address] [place], [address], 01/24/2024 11:12:37 01/23/20 24 01/24/2024 VITAM IN [...] Russel elias [place]: [facility] . 2. Luna CRAWFORD, Talon posadas [place], Horacio off-F errar i ALBARADO, et al. Evalu ation , treat ment, and preve ntion of vitam in D defic iency : an Endoc rine Socie ty clini theo pract ice guide line. JCEM. 2010; 96(7) :1911 -30. Not Available [facility] ([facility]) [address] [place], [address], 01/24/2024 11:12:37 05/11/20 24 05/12/2024 LIPID PANEL cholesterol, total 177 mg/dL 100-19 9 Not Available [facility] ([facility]) [address] [place], [address], 05/12/2024 08:23:26 05/11/20 24 05/12/2024 LIPID PANEL triglyceride s 251 mg/dL 0-149 above high normal Not Available [facility] ([facility]) [address] [place], [address], 05/12/2024 08:23:26 05/11/20 24 05/12/2024 LIPID PANEL HDL cholesterol 41 mg/dL >39 Not Available [facility] ([facility] [address] [place], [address], 05/12/2024 08:23:26 05/11/20 24 05/12/2024 LIPID PANEL VLDL cholesterol theo 42 mg/dL 5-40 above high normal Not Available [facility] ([facility]) [address] [place], [address], 05/12/2024 08:23:26 05/11/20 24 05/12/2024 LIPID PANEL LDL chol calc ([facility]) 94 mg/dL 0-99 Not Available [facility] ([facility]) [address] [place], [address], 05/12/2024 08:23:26 05/11/20 24 05/12/2024 COMP. METAB OLIC PANEL (14) glucose 80 mg/dL 70-99 Not Available [facility] ([facility]) [address] [place], [address], 05/12/2024 08:23:27 05/11/20 24 05/12/2024 COMP. METAB OLIC PANEL (14) BUN 7 mg/dL 6-20 Not Available [facility] ([facility]) [address] [place], [address], 05/12/2024 08:23:27 05/11/20 24 05/12/2024 COMP. METAB OLIC PANEL (14) creatinine 0.55 mg/dL 0.57-1 .00 below low normal Not Available [facility] ([facility]) [address] [facility] [place], [address], 05/12/2024 08:23:27 05/11/20 24 05/12/2024 COMP. METAB OLIC PANEL (14) eGFR 126 mL/mi n/1.7 3 >59 Not Available [facility] ([facility]) [address] [facility] [place], [address], 05/12/2024 08:23:27 05/11/20 24 05/12/2024 COMP. METAB OLIC PANEL (14) BUN/creatini ne ratio 13 9-23 Not Available [facility] ([facility]) [address] [facility] [place], [address], 05/12/2024 08:23:27 05/11/20 24 05/12/2024 COMP. METAB OLIC PANEL (14) sodium 138 mmol/ L 134-14 4 Not Available [facility] ([facility]) [address] [facility] [place], [address], 05/12/2024 08:23:27 05/11/20 24 05/12/2024 COMP. METAB OLIC PANEL (14) potassium 4.5 mmol/ L 3.5-5. 2 Not Available [facility] ([facility]) [address] [facility] [place], [address], 05/12/2024 08:23:27 05/11/20 24 05/12/2024 COMP. METAB OLIC PANEL (14) chloride 101 mmol/ L 96-106 Not Available [facility] ([facility]) [address] [place], [address], 05/12/2024 08:23:27 05/11/20 24 05/12/2024 COMP. METAB OLIC PANEL (14) carbon dioxide, total 24 mmol/ L 20-29 Not Available [facility] ([facility]) [address] [place], [address], 05/12/2024 08:23:27 05/11/20 24 05/12/2024 COMP. METAB OLIC PANEL (14) calcium 9.2 mg/dL 8.7-10 .2 Not Available [facility] ([facility]) [address] [place], [address], 05/12/2024 08:23:27 05/11/20 24 05/12/2024 COMP. METAB OLIC PANEL (14) protein, total 7.0 g/dL 6.0-8. 5 Not Available [facility] ([facility]) [address] [place], [address], 05/12/2024 08:23:27 05/11/20 24 05/12/2024 COMP. METAB OLIC PANEL (14) albumin 4.1 g/dL 4.0-5. 0 Not Available [facility] ([facility]) [address] [place], [address], 05/12/2024 08:23:27 05/11/20 24 05/12/2024 COMP. METAB OLIC PANEL (14) globulin, total 2.9 g/dL 1.5-4. 5 Not Available [facility] ([facility] [address] [facility] [place], [address], 05/12/2024 08:23:27 05/11/20 24 05/12/2024 COMP. METAB OLIC PANEL (14) bilirubin, total 0.3 mg/dL 0.0-1. 2 Not Available [facility] ([facility]) [address] [place], [address], 05/12/2024 08:23:27 05/11/20 24 05/12/2024 COMP. METAB OLIC PANEL (14) alkaline phosphatase 69 IU/L 44-121 Not Available [facility] ([facility]) [address] [place], [address], 05/12/2024 08:23:27 05/11/20 24 05/12/2024 COMP. METAB OLIC PANEL (14) AST (SGOT) 68 IU/L 0-40 above high normal Not Available [facility] ([facility]) [address] [place], [address], 05/12/2024 08:23:27 05/11/20 24 05/12/2024 COMP. METAB OLIC PANEL (14) ALT (SGPT) 125 IU/L 0-32 above high normal Not Available [facility] ([facility]) [address] [facility], [place], [address], 05/12/2024 08:23:27 06/30/20 24 07/01/2024 IGP, APTIM A HPV, RFX 16/18 ,45 HPV aptima NEGATI VE negati ve This nucle ic acid ampli ficat ion test detec ts fourt een high- risk HPV types (16,1 8,31, 33,35 ,39,4 5,51, 52,56 ,58,5 9,66, 68) witho ut diffe renti ation . Not Available [facility] ([facility]) [address] [place], [address], 07/05/2024 15:17:30 06/30/20 24 07/05/2024 IGP, APTIM A HPV, RFX 16/18 ,45 diagnosis: COMMEN T NEGAT PARTH FOR INTRA EPITH ELIAL OLIVIA Kaiser OR ANDRE VALLES . Not Available [facility] ([facility]) [address] [facility], [place], [address], 07/05/2024 15:17:30 06/30/20 24 07/05/2024 IGP, APTIM A HPV, RFX 16/18 ,45 specimen adequacy: SANDI Sanchez Satis facttonie mcmanus for evalu ation . Endoc ervic al and/o r squam ous metap lasti c cells (endo cervi theo compo nent) are prese nt. Not Available [facility] ([facility]) [address] [facility], [place], [address], 07/05/2024 15:17:30 06/30/20 24 07/05/2024 IGP, APTIM A HPV, RFX 16/18 ,45 clinician provided ICD10: SANDI Sanchez Z01.4 11 Not Available [facility] ([facility]) [address] [facility], [place], [address], 07/05/2024 15:17:30 06/30/20 24 07/05/2024 IGP, APTIM A HPV, RFX 16/18 ,45 performed by: SANDI mcdaniel Cytot giovanna sanchez (ASCP ) Not Available [facility] ([facility]) [address] [facility], [place], [address], 07/05/2024 15:17:30 06/30/20 24 07/05/2024 IGP, APTIM A HPV, RFX 16/18 ,45 . . Not Available [facility] ([facility]) [address] [place], [address], 07/05/2024 15:17:30 06/30/20 24 07/05/2024 IGP, APTIM [...] ts do occur . Not Available [facility] ([facility]) [address] [place], [address], 07/05/2024 15:17:30 06/30/20 24 07/05/2024 IGP, APTIM A HPV, RFX 16/18 ,45 test methodology: COMMEN T This liqui d based ThinP rep(R ) pap test was tom colvin with the use of an image guide justus carrillo Not Available [facility] ([facility]) [address] [place], [address], 07/05/2024 15:17:30 06/30/20 24 07/05/2024 IGP, APTIM A HPV, RFX 16/18 ,45 HPV genotype reflex COMMEN T Crite cristina not met, HPV Genot ype not perfo rmed. Not Available [facility] ([facility]) [address] [place], [address], 07/05/2024 15:17:30 12/23/19 25 12/23/2024 pregn moni test, urine HCG positi ve Not Available In-Office Order Internal Use Only DO Not Attach Compendium DO Not Attach Compendium, Do Not Delete/merge, [id number] 12/23/2024 12:43:37 Result Notes None recorded. 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, [place], [address], [place] - [facility] 2 16:04:26 Vitamin D deficien cy 71344207 Active 2020 Keith Beck [facility] Attn: Accountin g,[address] [facility], [place], [address], [place] - [facility] 2 16:04:26 Chronic thoracic back pain 59363656510 9103 Active 2020 Keith Beck [facility] Attn: Accountin g,[address] [facility], [place], [address], [place] [facility] 2 16:04:26 Abnormal liver function 94915945 Active 2020 Keith Beck [facility] Attn: Accountin g,[address] [facility], [place], [address], [place] [facility] 2 16:04:26 Impaired glucose toleranc e 1078832 Active 2020 Keith Beck [facility] Attn: Accountin g,[address] [facility], [place], [address], [place] [facility] 2 16:04:26 Non-alco holic fatty liver 494552570 Active 2021 Vivien [place] RN [place], [place] [facility] 4 11:55:34 Migraine with aura 6633941 Active 2023 Vivine [place] RN [place], [place] [facility] 4 11:55:30 Steatoti c liver disease 328807189 Active 2023 Vivien [place] RN null, [place] [facility] 4 11:55:39 Initial prescrip tion of oral contrace ption Active 2023 TANIYA White Attn: Nela rizo,[address] [facility], [place], [address], [facility] - [facility] 4 12:39:34 Mixed hyperlip idemia 435900294 Active 2023 TANIYA White Attn: Nela rizo,[address] [facility], [place], [address], [place] - [facility] 4 17:15:26 Problem Notes None recorded. Procedures Surgical History Date Name Laterality Status Provider Name and Address Organization Details Recorded Time 4 Date of Last Pap Smear completed TANIYA White Attn: Accounting,[address] [place], [address], [place] [facility] 12/23/2024 12:54:53 4 Control Implant Removal completed TANIYA White Attn: Accounting,[address] [place], [address], [place] [facility] 02/09/2024 12:41:59 1 Control Implant Insertion completed TANIYA White Attn: Accounting,[address] [place], [address], [place] [facility] 02/08/2021 13:02:01 Imaging Results [...] Updated DateTime 5 154.94 cm 33.7 kg/m2 46815.2 4 g 100 % 100 % 80 /min 97.8 [degF] 102/70 mm[Hg] Brigid sanchez [place] - [facility] 5 12:43:27 Date Recorded Body height Body mass index (BMI) Body weight Body temperature Heart rate Systolic And Diastolic Provider Name and Address Organization Details Last Updated DateTime 4 154.94 cm 34.4 kg/m2 23900.2 1 g 98.1 [degF] 82 /min 110/64 mm[Hg] Josefina Pham MA [facility] 4 12:31:38 Date Recorded Body height Provider Name an d Address Organization Details Last Updated DateTime 02/19/2024 154.94 cm Josefina alvarenga MA [facility] 02/19/2024 12:42:56 Date Recorded Body mass index (BMI) Body weight Oxygen saturation Oxygen saturation in Arterial blood by Pulse oximetry Heart rate Body temperature Systolic And Diastolic Provider Name and Address Organization Details Last Updated DateTime 33.9 kg/m2 40350.8 3 g 98 % 98 % 60 /min 98.3 [degF] 100/78 mm[Hg] Brigid sanchez MA [facility] 13:18:24 Date Recorded Body height Body mass index (BMI) Body weight Heart rate Body temperature Systolic And Diastolic Provider Name and Address Organization Details Last Updated DateTime 154.94 cm 33.7 kg/m2 34567.2 4 g 84 /min 98 [degF] 100/62 mm[Hg] Vivien Garcia RN [facility] 12:10:13 Date Recorded Body height Provider Name an d Address Organization Details Last Updated DateTime 06/30/2024 154.94 cm Charityivy Radha alvarenga [facility] 06/30/2024 10:21:55 Date Recorded Body mass index (BMI) Body weight Body temperature Oxygen saturation Oxygen saturation in Arterial blood by Pulse oximetry Heart rate Systolic And Diastolic Provider Name and Address Organization Details Last Updated DateTime 33.5 kg/m2 96778.6 5 g 98 [degF] 97 % 97 % 86 /min 100/70 mm[Hg] Brigid sanchez MA [facility] 4 10:31:01 Social History Question Answer Notes LastModified by Organizat ion Details LastModified Time Tobacco Smoking Status Never Smoker LAZARO [place], [facility] 05/11/2020 10:27:33 Do You Have [...] Do You Have A Medical Power Of Lead Cook? Yes [email or web address] Information not available 11/19/2022 What [...] 05/11/2020 Are you able to care for yourself independently? Yes Information not available 02/02/2021 What is [...] anxious, or unable to sleep at night)? [id number] Information not available 10/22/2022 Family History Relationship [...] Clots N Lung Disease N Acne N Eating Disorder N Breast Problem N Anemia N Anesthesia Complications N Headaches/Migraines [...] 2 completed TANIYA White Attn: Accounting,[address] [place], [address], [place] [facility] 10/22/2022 17:04:58 Influenza, split virus, quadrivalent, preservative 3 completed TANIYA White Attn: Accounting,[address] [place], [address], [place] [facility] 09/09/2023 17:47:32 Past Encounters Encounter ID Performer Location Encounter Start Date Encounter Closed Date Diagnosis/Indication Diagnosis SNOMED-CT Code Diagnosis ICD10 Code Diagnosis Note [id number] MD Ofelia Askew ([employer]) [address] [place] [phone] 05/11/2020 09:55:40 05/12/2020 07:58:51 Routine care 954912048 Z34.90 Venereal d isease screening 085504417 Z11.3 screening 3437 49575 Z36.85 Familial s hort stature 283809691 R62.52 Administra tion of influenza vaccine 41509638 Z23 [id number] MD Ofelia Askew ([employer]) [address] [place] [phone] 06/14/2020 10:35:05 06/15/2020 09:01:16 Routine care 873353689 Z34.90 Familial s hort stature 589695960 R62.52 Homozygous methylenetetrahydrofo late reductase mutation [id number] 96018 E72.12 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 She is breast feeding. She will use condoms for now until insertion. 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 , nausea She is BF use Tylenol extra strength prn samples given [id number] Kendrick Fermin MD [facility] [address] [id number] 4 04/03/2021 10:21:56 04/04/2021 19:39:42 Chronic thoracic back pain 9172210267 03727 M54.6 [id number] Ramesh Gomez MD [facility] [address] [address] 05/07/2021 10:17:07 05/08/2021 14:13:12 Gynecologic examination 18029716 Z01.411 Self breast exam calcium rich foods handout vitamin D 2000 iu daily exercise weight loss diet Body mass index 30+ - obesity 466424565 Z68.30 Ht 5' 1 Healthy weight range 100-130 Familial s hort stature 253325751 R62.52 Pain of mu ltiple joints 02866235 M25.50 Family his tory of diabetes mellitus in first degree relative 703383693 Z83.3 Mother HIV screening 379000638 Z11.4 Loss of hair 212234681 L 65.9 Chronic th oracic back pain 2082834973 88203 M54.6 [id number] Kendrick Fermin MD [facility] [address] [address] 05/22/2021 12:32:31 05/23/2021 07:22:07 Abnormal liver function 49659186 K76.89 Body mass index 30+ - obesity 238115547 Z68.30 Ht 5' 1 Healthy weight range 100-130 Vitamin D deficiency 347 50429 E55.9 Vitamin D 24Start Rx Vitamin D2 98885 IU once weekly for 12 weeksonce you complete RX buy otc vitamin D3 1000 IU once daily Impaired g lucose tolerance 8900418 R73.02 HA1C 5.8 Watch your weight. A [...] smoke. Smoking can make prediabete s worse. [id number] Kendrick Fermin MD [facility] [address], [place] [address] 05/29/2021 12:28:27 05/30/2021 07:45:24 Abnormal liver function 74859048 K76.89 [id number] Kendrick Fermin MD [facility] [address] [address] 06/06/2021 11:20:45 06/07/2021 07:39:52 Chronic thoracic back pain 6673114326 30302 M54.6 will dc ibuprofen and flexeril Body mass index 30+ - obesity 248905185 Z68.30 Ht 5' 1 Healthy weight range 100-130 Steatotic liver disease 644094953 K76.0 no alcoholno tylenolAST 102.8ALT 201.3 Abnormal l iver function 26731895 K76.89 06/05/2021 u/s liver echogenic with common bile duct measuring 0.22cm and normal upper limits is 0.6cm7/6/2 021AST 102.8ALT 201.3 [id number] Kendrick Fermin MD [facility] [address] [address] 07/19/2021 10:48:56 07/20/2021 10:00:02 Steatotic liver disease 919994294 K76.0 no alcoholno tylenolAST 102.8ALT 201.3 [id number] Kendrick Fermin MD [facility] [address] [address] 10/22/2022 15:40:14 10/25/2022 09:45:01 Abnormal liver function 23346054 K76.89 06/05/2021 u/s liver echogenic with common bile duct measuring 0.22cm and normal upper limits is 0.6cm762 021AST 102.8ALT 201.3Patie nt was referred to GI 06/06/2021 but she did not show to [facility] t Administra tion of influenza vaccine 26304444 Z23 Non-alcoho lic fatty liver 350180688 K76.0 US liver shows fatty liver06/05 u/s liver echogenic with common bile duct measuring 0.22cm and normal upper limits is 0.6cm Depression screening 171 332906 Z13.31 PHQ 2-9 negative Mental hea lt screening 847918147 Z13.39 MAURICE-7 negative [id number] Chrystal Cheema DO [facility] [address] [place] [address] 11/19/2022 10:26:18 11/21/2022 10:40:23 Steatotic liver disease 188740650 K76.0 Likely NAFLD. Patient counseled at length [...] T 10/22/2022 WNLamylase and lipase 10/22/2022 WNL [id number] Wade Ibarra MD [facility] [address] [address] 03/11/2023 12:34:43 03/12/2023 15:09:30 Body mass index 30+ - obesity 902530654 Z68.30 Ht 5' 1 Healthy weight range 100-130 Obesity 979689184 E66.9 BMI 30.2 Abnormal v aginal bleeding 999113886 N93.9 Had nexplanon insertion on 02/08/2021H as irregular vaginal bleedingMe nses for 15 days light spotting sometimes clotswill try ibuprofen 400mg every 6 hrs prn Depression screening 171 487365 Z13.31 PHQ 2-9 negative Mental hea lth screening 195184493 Z13.39 MAURICE-7 negative [id number] Kendrick Fermin MD [facility] [address] [address] 04/16/2023 11:21:02 04/18/2023 15:13:30 Body mass index 30+ - obesity 932400100 Z68.30 Ht 5' 1 BMI 33.9 Healthy weight range 100-130 Abnormal v aginal bleeding 071242921 N93.9 Had nexplanon insertion on 02/08/2021H as irregular vaginal bleedingMe nses for 15 days light spotting sometimes clotswill try ibuprofen 800mg every 6 hrs prn Obesity 502159721 E66.9 BMI 33.9 Depression screening 171 914416 Z13.31 PHQ 2-9 negative Mental hea lth screening 382000850 Z13.39 MAURICE-7 negative Serous otitis media 8032 7007 H65.03 [id number] Kendrick Fermin MD [facility] [address] [place] [phone] 4 09/09/2023 15:28:10 09/23/2023 15:43:25 Body mass index 30+ - obesity 933347326 Z68.30 Ht 5' 1 BMI 33.9 Healthy weight range 100-130 Non-alcoho lic fatty liver 950474447 K76.0 US liver shows fatty liver06/05 u/s liver echogenic with common bile duct measuring 0.22cm and normal upper limits is 0.6cm12/03 repeat u/s liver shows diffuse hepatic steatosis Administra tion of influenza vaccine 30306267 Z23 Vitamin D deficiency 347 08185 E55.9 Vitamin D 24 buy otc vitamin D3 1000 IU once daily Hyperlipid emia screening 337581314 Z13.220 Impaired g lucose tolerance 8431172 R73.02 09/09/2023 HA1C 5.8 Watch your weight. [...] make prediabete s worse. Depression screening 171 334529 Z13.31 PHQ 2-9 negative Mental hea [facility] screening 657086454 Z13.39 MAURICE-7 negative [id number] Kendrick Fermin MD [facility] [address] [address] 01/14/2024 16:45:47 01/21/2024 11:09:45 Obesity 269799811 E66.9 BMI 33.7Has lost 4 pounds Abnormal l iver function 57066930 K76.89 06/05/2021 u/s liver echogenic with common [...] the office first.No Tylenol Steatotic liver disease 808093485 K76.0 Likely NAFLD. Patient counseled at length [...] lipase 10/22/2022 WNL Vitamin D deficiency 347 07140 E55.9 Vitamin D 16Rx Vitamin D2 25407 IU once weekly for 12 weeksbuy otc vitamin D3 1000 IU once daily Acute sinusitis 85612351 J01.90 Migraine with aura 15781 06 G43.109 Depression screening 171 922152 Z13.31 PHQ 2-9 negative Mental hea lth screening 742751538 Z13.39 MAURICE-7 negative [id number] Kendrick Fermin MD [facility] [address] [address] 01/23/2024 13:58:01 01/26/2024 14:37:25 Abnormal liver function 32881784 K76.89 Vitamin D deficiency 347 77478 E55.9 [id number] Wade Ibarra MD [facility] [address] [phone] 4 02/09/2024 12:11:15 02/18/2024 13:39:12 Contraception care management 053202731 Z30.09 Discussed contracept krysta risks and benefits Handout on contracept parth methods Condoms as necessary Removal of subcutaneous contraceptive 969984579 Z30.46 Patient Had nexplanon insertion on 02/08/2021 atient wants removal todayPatie nt will start oral control Initial pr escription of oral contraception 194558815 Z30.011 Body mass index 30+ - obesity 506628448 Z68.30 Ht 5' 1 BMI 34.4 Healthy weight range 100-130 Depression screening 171 973838 Z13.31 PHQ 2-9 negative Mental hea lth screening 729477249 Z13.39 MAURICE-7 negative [id number] Wade Ibarra MD [facility] [address] [place] [address] 4 02/19/2024 12:33:45 02/24/2024 11:18:56 Subcutaneous contraceptive implant present 762873461 Z30.42 wound at left upper inner arm area healing Surveillan ce of subcutaneous contraceptive implant done 8265055577 75540 Z30.46 Body mass index 30+ - obesity 821470976 Z68.30 Ht 5' 1 BMI 33.9 Healthy weight range 100-130 Depression screening 171 370635 Z13.31 PHQ 2-9 negative Mental hea lth screening 997267933 Z13.39 MAURICE-7 negative [id number] Wade Ibarra MD [facility] [address] [place] [address] 4 05/11/2024 11:50:25 05/13/2024 09:30:48 Body mass index 30+ - obesity 088704023 Z68.30 Ht 5' 1 BMI 33.7 Healthy weight range 100-130 Obesity 687805312 E66.8 BMI 33.7Has lost 4 pounds Surveillan ce of oral contraception 797657207 Z30.41 Patient wishes to stop oral control for now Abnormal l iver function 08018422 K76.89 12/03/2022 repeat u/s liver shows diffuse hepatic steatosis4AST 75ALT 116 Steatotic liver disease 002884043 K76.0 Likely NAFLD. Patient counseled at length [...] and lipase 10/22/2022 WNL Mixed hyperlipidemia 267 921770 E78.2 09/09/2023 cho 180trig 276HDL 38LDL 127Avoid all breads, potatoes, cereal, pasta, rice, margarine, refined sugars, milk yogurt, ice cream, juices, soda (including diet), beer, and manmade or manufactur ed desserts. Enjoy steak, fish, chicken (no skin), pork, butter, vegetables , beans, nuts, whole eggs, cheese (low fat or skim), cream in your coffee. Non-alcoho lic fatty liver 457435658 K76.0 US liver shows fatty liver06/05 u/s liver echogenic with common bile duct measuring 0.22cm and normal upper limits is 0.6cm12/03 repeat u/s liver shows diffuse hepatic steatosis [id number] Wade Ibarra MD [facility] [address] [address] 06/30/2024 10:17:49 07/13/2024 13:40:01 Gynecologic examination 34259355 Z01.411 Normal Decatizer examLast pap 05/07/2021 normal cytology due in 2023Last mammogram under 40colonosc opy Under 45STD screen not done IBCCP doesnt cover itSelf breast examcalciu m rich foods handoutvit dinh D 1000 iu dailyexerc ise 40-50 minutes 4-5 days per weekweight lossdietLi fetime breast cancer risk is 6.1% using SOFYA model Body mass index 30+ - obesity 289822407 Z68.30 BMI 33.5Ht 5' 1 Healthy weight range 100-130 Familial s hort stature 188625275 R62.52 Inflammati on of cervix 48596791 N72 [id number] Wade Ibarra MD [facility] [address] [address] 12/23/2024 12:36:01 12/24/2024 13:30:24 Urine test positive 519844724 Z32.01 LNMP 11/03/2024 Approx gest 7 wksEDC 08/10/2025 Body mass index 30+ - obesity 707731774 Z68.30 BMI 33.7Ht 5' 1 Healthy weight range 100-130 Health Concerns Section Related Observation LastModified by Organization Detai ls LastModified Time None Recorded Concern Status LastModified by Organization Details LastModified Time None Recorded Advance Directives Directive N: Payers Insurance Date Sequence Insurance Name Policy Number Policy Lebron Covered Member ID Lebron Member ID Guarantor Name 12/23/2024 1 MEDICAID - MOVED-MGRHOLD - PENDING [id number] Elsa Zhen-G aleana 06/30/2024 [facility] Elsa Zhen-Ga maicol [id number] Elsa Zhen-G aleana 12/23/2024 1 *SELF PAY* Gu adalupe Zhen-G aleana 02/05/2021 SLIDING FEE SCHEDULE - DISCOUNT Elsa Zhen-G aleana 05/24/2020 1 MEDICAID - MOVED-MGRHOLD - PENDING [id number] Elsa Zhen-G aleana 05/11/2024 2 [place] [facility] [place] [facility] Elsa Zhen-Ga maicol [id number] Elsa Zhen-G aleana 05/11/2024 1 [place] [facility] [place] [facility] Elsa Zhen Cornelia [id number] Elsa Gariago-Sallie aleana 12/23/2024 SLIDING FEE SCHEDULE - DISCOUNT Elsa Zhen-G aleana 04/27/2025 2 [facility] - DOS ON OR AFTER 21 (MEDICAID REPLACEMENT - HMO) Elsa Zhen-Edwar milian [id number] Elsa Cabrerago-G aleana Notes Date Note Type Note Provider Name and Address Organization Details Recorded Time 02/09/2024 text/html ROS as noted in the HPI 28 y/o HF presents for nexplanon removal. The patient had insertion in 2020. The patient wants to start oral control. She has no contraindications. Last pap 04/2021-needs to schedule for wwe. Wade Ibarra MD Attn: Accounting,[address] [place], [address], [facility] 02/10/2024 10:31:58 02/19/2024 text/html ROS as noted in the HPI 28 y/o HF presents for nexplanon removal wound check. The patient has been feeling well. Her Last pap 04/2021-needs to schedule for wwe. TANIYA White Attn: Accounting[address] [place], [address], [facility] 02/19/2024 13:25:34 05/11/2024 text/html OCP CheckReporte d by PatientHPIFor context, patient reportsnumber of ocp cycles completed:3andreason for starting ocps: control. For associated symptoms, patient reportsregular menses,no btb menses, andno side effects.ROS as noted in the HPI 28 y/o L3 HF Patient wishes to stop oral control for now. She wants to have her LFT rechecked today as these were abnormal. She was due follow up with GI 11/2023. SHe did not . She is requesting a new referral.She reports will be using natural family planning method. TANIYA White Attn: Accounting,[address] [facility], [place], [address], [facility] 05/11/2024 17:16:10 06/30/2024 text/html Annual GYNReport ed by PatientHistoryFor history, patient reportsno gynecologic complaintsandno change in interval history(she delivered a baby 11/2020).Genitourinary symptomsFor menstrual cycle, patient reportsirregular cycle intervals. For vagina, patient reportswhite. For urinary symptoms, patient reportsno hematuriaandno incontinence. For vulva, patient reportsno genital lesion.Breast symptomsFor breast, patient reportsno breast pain,no breast lump, andno nipple discharge.Endocrine symptomsFor sexual complaints, patient reportsno sexual complaints,no pain during intercourse, andnormal libido. For menopausal symptoms, patient reportsno menopausal symptomsandnormal vaginal lubrication.Psychologi theo symptomsFor psychological symptoms, patient reportsno depression,no anxiety, andno pmdd.ROS as noted in the HPI 28 y/o HF L3 presents for well woman exam. Last pap done in 05/07/2021 and it was normal. Wade Ibarra MD Attn: Accounting,[address] [place], [address], [facility] [place] [place] 06/30/2024 11:23:01 12/23/2024 text/html ROS as noted in the HPI 29 y/o L3 presents for test. Her Lnmp was on 11/06/2024. Her urine test today is positive. She denies any breast pain, vaginal bleeding. She will go to [facility]. TANIYA White Attn: Accounting,[address] [place], [address], [facility] [place] [place] 12/23/2024 13:07:06 OBGyn Episode Ob Episode Information Episode Created Date Number of Fetuses Patient Bloodtype Patient rh Status Prepregnancy Weight lbs Domestic Partner Domestic Partner Phone Father Name Tool Shaper Set Up Operator Status 05/11/20 20 1 CLOSED Fetus Data First Name Last Name Admitted to NICU Weight (g) Sex Living Outcome Pediatric Complications Fetus ID Race Codes Race Delivery Type F Full Term 50267 Standard Vaginal Delivery Mario Calculation Initial Mario [...] Date Comments 9 None 40 Born in [place] Discharge Information Feeding Method Contraceptive Method Maternal HG B and HCT Levels Ob Episode Information Episode Created Date Number of Fetuses Patient Bloodtype Patient rh Status Prepregnancy Weight lbs Domestic Partner Domestic Partner Phone Father Name Tool Shaper Set Up Operator Status 05/11/20 20 1 CLOSED Fetus Data First Name Last Name Admitted to NICU Weight (g) Sex Living Outcome Pediatric Complications Fetus ID Race Codes Race Delivery Type F Full Term 28166 Standard Vaginal Delivery Mario Calculation Initial Mario [...] 2 Regional-Ep idural 40 false Born in [place] Discharge Information Feeding Method Contraceptive Method Maternal HG B and HCT Levels Ob Episode Information Episode Created Date Number of Fetuses Patient Bloodtype Patient rh Status Prepregnancy Weight lbs Domestic Partner Domestic Partner Phone Father Name Tool Shaper Set Up Operator Status 05/11/20 20 1 O Positive CLOSED Fetus Data First Name Last Name Admitted to NICU Weight (g) Sex Living Outcome Pediatric Complications Fetus ID Race Codes Race Delivery Type silvia s arjun ny false 2908.65 87 M true Full Term 38478 2106-3 White Vaginal Problems Problem Notes Problem Name Start Date End Date Resolution Snomed Code Note Familial short stature 0 689886986 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 Mario [...] in lbs Pre/Post Dialysis Refused With clothes 160.937611329359 BP Diastolic BP Location Tested BP Systolic BP Type 68 110 sitting Fetus Heart Rate Present Fetus Movement Comments nob Flowsheet Date 06/14/2020 Bauer Score Blood Edema Fundus Height Fundus Units Glucose Ketones Leukocytes Nitrite Labor Signs Protein Cervic Dilation Cervic Effacement Cervic Station neg none none negative none neg Type Weight in lbs Pre/Post Dialysis Refused With clothes 157.223642690904 BP Diastolic BP Location Tested BP Systolic [...] Estim ated Date of Delivery false Thalassemia (Arabic, Swazi, Mediterranean, Or Background): MCV < 80 false Neural Tube Defect (Meningomyelocele, Spina Bifi da, Or Anencephaly) false Congenital Heart Defect false Down Syndrome false Edenilson-Sachs (eg, Methodist, Cajun, Divehi-Monroe) f alse Bennie Disease false Sickle Cell Disease Or Trait () false Hemophilia Or Other Blood Disorders false Muscular Dystrophy false Cystic Fibrosis false Orlando's Chorea false Mental Retardation/Autism false If Yes, [...]
--- OUTSIDE RECORDS SUMMARY | 2025-06-17 07:14 | XMS_ITS | Clinical Summary ---
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 This disclosure is being madepursuant to the Care Everywhere program and may not contain all information available regarding this patient. 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 Discharge Disposition: Home or Self Care 04/04/2025 1:00 PM CDT - 04/04/2025 11:59 PM CDT Hospital Encounter [facility] [address] [place] [address] Erich Carrera MD Discharge Disposition: Home or [...] Upcoming Encounters Date Type Department Care Team ([facility] st Contact Info) Description 07/04/2025 11:15 AM CDT Appointment [facility] [address] [place], [place] [id number] Health Maintenance Due Date Last Done Comments HIV SCREENING 2008 HEPATITIS C SCREENING 10/01/2011 DTAP/TDAP/TD VACCINES (1 - Tdap) 2012 HEPATITIS B VACCINE (1 of 3 - 19+ 3-dose series) 2012 PAP SMEAR 2014 HPV VACCINE (1 - 3-dose SCDM series) 2020 COVID-19 VACCINE (2 - season) 2024 06/19/2021 [...] Associated Diagnosis Comments SONOGRAM - COMPLETE Routine 06/06/2025 9 :57 AM CDT Fourth (HCC) 29 weeks gestation of (HCC) Encounter for follow-up ultrasound of anatomy ([facility]) Encounter for ultrasound to assess growth ([facility]) SONOGRAM - COMPLETE Routine 05/06/2025 2 :56 PM CDT Fourth (HCC) 25 weeks gestation of (HCC) Encounter for follow-up ultrasound of anatomy ([facility]) SONOGRAM - COMPLETE Routine 04/04/2025 1 :02 PM CDT Fourth (HCC) 21 weeks gestation of (HCC) Encounter for anatomic survey ([facility]) from Last 3 Months Results * Sonogram - Complete (06/06/2025 9:57 AM CDT) Only the most recent of3 resultswithin the time period is included. Linked Results Indication ======== Encounter for other screening follow-up Maternal obesity complicating , class 1 (BMI 30.0 - 34.9) History ====== OB History 4. Para 3 Maternal Assessment Physical Exam Height 152 cm, 5 ft 0 in. Weight 84 kg, 186 lb. Initial weight 80 kg, 177 lb. BMI 36.33 kg/m . Initial BMI 34.57 kg/m . Weight gain 4 kg, 9 lb Method ====== Transabdominal ultrasound. View: Suboptimal view: limited by late gestational age ========= Lamb . Number of fetuses: 1 Dating ====== Date Details Gest. age DINORA LMP 11/03/2024 30 w + 5 d 08/10/2025 Stated DINORA 30 w + 5 d 08/10/2025 U/S 06/06/2025 based upon AC, BPD, Femur, HC 32 w + 4 d 07/28/2025 Assigned dating based on the LMP, selected on 04/04/2025 30 w + 5 d 08/10/2025 General Evaluation Cardiac activity present. FHR 133 bpm. Presentation: cephalic Placenta: Placental site: posterior Umbilical cord: 3-vessel cord and normal placental cord insertion site were documented previously Amniotic fluid: Amount of AF: normal. KENDRA 12.0 cm. Q1 4.2 cm, Q2 2.4 cm, Q3 3.1 cm, Q4 2.3 cm Biometry BPD 81.0 mm 32w 4d 88% Hadlock HC 293.2 mm 32w 2d 61% Hadlock AC 304.7 mm 34w 3d >99% Hadlock Femur 58.9 mm 30w 5d 36% Hadlock Humerus 53.8 mm 31w 2d 70% Kevin HC / AC 0.96 Weight Calculation: EFW 2,089 g 96% Hadlock EFW (lb,oz) 4 lb 10 oz EFW by Hadlock (HC-AC-FL) Growth Overview Exam date GA BPD (mm) HC (mm) AC (mm) FL (mm) HL (mm) EFW (g) 04/04/2025 21w 5d 53.9 74% 200.7 61% 190 94% 42 93% 39.7 98% 601 >99% 05/06/2025 26w 2d 66 51% 241.3 22% 239.7 92% 49.7 51% 46.4 77% 1076 83% 06/06/2025 30w 5d 81 88% 293.2 61% 304.7 >99% 58.9 36% 53.8 70% 2089 96% Anatomy The following structures appear normal: Heart / Thorax RVOT view. LVOT view. Great vessels. Abdomen Stomach. Kidneys. Bladder. The following structures could not be adequately visualized: Extremities / Skeleton Hands. The following structures were documented previously: Head / Neck Cranium. Lateral ventricles. Choroid plexus. Midline falx. Cavum septi pellucidi. Cerebellum. Cisterna magna. Thalami. Nuchal fold. Face Lips. Profile. Nose. Nasal bone. Orbits. Heart / Thorax 4-chamber view. 3-vessel view. 4-rbvcns-bwyqols view. Situs. Aortic arch view. Bicaval view. Ductal arch view. Right lung. Left lung. Diaphragm. Abdomen Cord insertion. Bowel. Genitals. Spine Cervical spine. Thoracic spine. Lumbar spine. Sacral spine. Extremities / Skeleton Arms. Legs. Feet. sex: male. Impression ========= 1) Lamb gestation, 30w5d 2) Today's biometry is concerning for accelerated growth 3) The amniotic fluid volume is within normal limits 4) No abnormalities have been detected on anatomic survey 5) Imaging of the hands was again suboptimal, secondary to positioning Comment ======== ultrasound alone cannot detect all structural, genetic, or functional , placental, or maternal abnormalities Follow-up ======== Follow-up ultrasound in ~3-4 weeks to complete the anatomic survey and reevaluate growth and amniotic fluid volume [facility] PACS Anatomical Region Laterality Modality Other 06/06/2025 9:57 AM CDT Shayan Auguste MD [facility] ORDERABLES Edited Result - Final from Last 3 Months Insurance
[2025-06-17 07:46] LABS: Glucose Fasting Gestational 90 mg/dL (>/=95)
[2025-06-17 08:26] LABS: Syphilis IgG/IgM Antibody Non-Reactive (Nonreactive)
[2025-06-17 08:39] LABS: HIV 1/2 Ab P24 Ag Result Negative (Negative)
[2025-06-17 09:19] LABS: Glucose 1 Hour Gest 156 mg/dL (>/=180)
[2025-06-17 10:33] LABS: Glucose 2 Hour Gest 114 mg/dL (>/= 155)
[2025-06-17 11:25] LABS: Glucose 3 Hour Gest 140 mg/dL (>/=140)
== END 2025-06-17 07:11 | disposition home or self-care (01) ==
PROVIDERS: Referring Provider Nurse Practitioner Family; Visit Provider Obstetrics & Gynecology
DX: O99.810 Abnormal glucose complicating pregnancy (principal); Z3A.00 Weeks of gestation of pregnancy not specified
CPT/HCPCS: 36415; 82951; 82952; 86593; 86703; G0432

== ENCOUNTER 2025-07-15 08:00 | Outpatient (CLI) | payer OTHER, SELFPAY ==
--- OUTSIDE RECORDS SUMMARY | 2025-07-15 08:04 | XMS_ITS | Clinical Summary ---
Author Organization [facility] Address [address] [place] [address] Care Team Providers Care Physical Plant Manager Name Role Phone Unavailable Primary Care Provider Unavailabl e Source Comments [facility],non-owned Affiliates and Associated Physician Practices is amultiple site organization consisting of ambulatory clinics and hospital sitesin [place], [place], [place] and [place]. This disclosure is being madepursuant to the Care Everywhere program and may not contain all information available regarding this patient. Last updated 18.[facility] Allergies No known active allergies Encounters Date Type Department Care Team Description 07/04/2025 10:51 AM CDT - 07/04/2025 11:59 PM CDT Hospital Encounter [facility] [address] [place] [id number] Manas Tesfaye DO HELICOPTER MECHANIC Discharge Disposition: Home or Self Care 06/06/2025 9:02 AM CDT - 06/06/2025 11:59 PM CDT Hospital Encounter [facility] [address] [place] [id number] Soraya Cantrell MD Tomlinson, Tracy M, MD Discharge Disposition: Home or Self Care 05/06/2025 2:30 PM CDT - 05/06/2025 11:59 PM CDT Hospital Encounter [facility] [address] [place] [id number] Manas Tesfaye DO HELICOPTER MECHANIC Discharge Disposition: Home or Self Care from [...] Care Team (Late st Contact Info) Description 08/05/2025 9:45 AM CDT Appointment [facility] [address] [place], [place] [id number] Health Maintenance Due Date Last Done Comments HIV SCREENING 2008 HEPATITIS C SCREENING 10/01/2011 DTAP/TDAP/TD VACCINES (1 - Tdap) 2012 HEPATITIS B VACCINE (1 of 3 - 19+ 3-dose series) 2012 PAP SMEAR 2014 HPV VACCINE (1 - 3-dose SCDM series) 2020 COVID-19 VACCINE (2 - season) 2024 06/19/2021 DEPRESSION SCREENING 11/24/2024 OB-ONE HOUR GLUCOSE 05/04/2025 OB-TDAP CURRENT 05/11/2025 11/25/2020, OB-RHOGAM INJECTION 05/18/2025 OB-GROUP B STREP SCREEN 07/06/2025 INFLUENZA VACCINE (#1) 2025 , 10/22/2022, 11/14/2020, [...] Associated Diagnosis Comments SONOGRAM - COMPLETE Routine 07/04/2025 1 1:15 AM CDT Fourth (HCC) 34 weeks gestation of (HCC) Encounter for ultrasound to assess growth (HCC) Encounter for follow-up ultrasound of anatomy (HCC) SONOGRAM - COMPLETE Routine 06/06/2025 9 :57 AM CDT Fourth (HCC) 29 weeks gestation of (HCC) Encounter for follow-up ultrasound of anatomy (HCC) Encounter for ultrasound to assess growth (HCC) SONOGRAM - COMPLETE Routine 05/06/2025 2 :56 PM CDT Fourth (HCC) 25 weeks gestation of (HCC) Encounter for follow-up ultrasound of anatomy ([facility]) from Last 3 Months Results * Sonogram - Complete (07/04/2025 11:15 AM CDT) Only the most recent of3 resultswithin the time period is included. Linked Results Indication ======== Screening Follow-Up Incomplete anatomical survey Maternal obesity complicating , class 1 (BMI 30.0 - 34.9) Uterine size-date discrepancy Suspected LGA History ====== OB History 4. Para 3 Maternal Assessment Physical Exam Height 152 cm, 5 ft 0 in. Weight 85 kg, 188 lb. Initial weight 80 kg, 177 lb. BMI 36.72 kg/m . Initial BMI 34.57 kg/m . Weight gain 5 kg, 11 lb Method ====== Transabdominal ultrasound. View: Suboptimal view: limited by late gestational age ========= Lamb . Number of fetuses: 1 Dating ====== Date Details Gest. age DINORA LMP 11/03/2024 34 w + 5 d 08/10/2025 Stated DINORA 34 w + 5 d 08/10/2025 U/S 07/04/2025 based upon AC, BPD, Femur, HC 36 w + 3 d 07/29/2025 Assigned dating based on the LMP, selected on 04/04/2025 34 w + 5 d 08/10/2025 General Evaluation Cardiac activity present. FHR 145 bpm. Presentation: cephalic Placenta: Placental site: posterior; right lateral no previa Umbilical cord: Cord vessels: 3 vessel cord - previously documented. Insertion site: normal insertion - previously documented Amniotic fluid: Amount of AF: normal. MVP 5.7 cm. KENDRA 11.5 cm. Q1 1.5 cm, Q2 0.0 cm, Q3 5.7 cm, Q4 4.4 cm Biometry BPD 88.1 mm 35w 4d 76% Hadlock HC 325.2 mm 36w 6d 69% Hadlock AC 352.5 mm 39w 1d >99% Hadlock Femur 66.4 mm 34w 1d 28% Hadlock Humerus 60.8 mm 35w 1d 80% Kevin HC / AC 0.92 Weight Calculation: EFW 3,189 g 97% Hadlock EFW (lb,oz) 7 lb 0 oz EFW by Hadlock ([id number]) LGA Growth Overview Exam date GA BPD (mm) HC (mm) AC (mm) FL (mm) HL (mm) EFW (g) 04/04/2025 21w 5d 53.9 74% 200.7 61% 190 94% 42 93% 39.7 98% 601 >99% 05/06/2025 26w 2d 66 51% 241.3 22% 239.7 92% 49.7 51% 46.4 77% 1076 83% 06/06/2025 30w 5d 81 88% 293.2 61% 304.7 >99% 58.9 36% 53.8 70% 2089 96% 07/04/2025 34w 5d 88.1 76% 325.2 69% 352.5 >99% 66.4 28% 60.8 80% 3189 97% Anatomy The following structures appear normal: Abdomen Stomach. Kidneys. Bladder. Extremities / Skeleton Left hand. The following structures could not be adequately visualized: Extremities / Skeleton Right hand. The following structures were documented previously: Head / Neck Cranium. Lateral ventricles. Choroid plexus. Midline falx. Cavum septi pellucidi. Cerebellum. Cisterna magna. Thalami. Nuchal fold. Face Lips. Profile. Nose. Nasal bone. Orbits. Heart / Thorax 4-chamber view. RVOT view. LVOT view. 3-vessel view. 3-kslmqr-duyhouj view. Situs. Aortic arch view. Bicaval view. Ductal arch view. Great vessels. Right lung. Left lung. Diaphragm. Abdomen Cord insertion. Bowel. Genitals. Spine Cervical spine. Thoracic spine. Lumbar spine. Sacral spine. Extremities / Skeleton Arms. Legs. Feet. sex: male. Impression ========= Here today for interval growth ultrasound due to increased BMI and suspected LGA and attempt to complete the anatomical survey. Single, live, intrauterine at 34w 5d The size is suspected LGA. The amniotic fluid volume is normal. Normal appearing posterior right lateral placenta. Imaging of the right hand remains suboptimal. No major malformations were seen within the limitations of ultrasound. the anatomical survey is essentially completed. Comment ======== The biometry showing good interval growth in the estimated weight is suspected LGA. This is most likely constitutional in light of her negative glucose screen. But can not rule out GDM with certainty. The amniotic fluid is normal and they were good movements noted. The remainder of the anatomical survey showed no gross abnormalities except the right hand remains suboptimally visualized due to positioning and advanced gestational age which limited the overall study. Both ultrasound and screening/testing have their limitations in detecting all congenital anomalies and chromosomal abnormalities/inh erited disorders or genetic syndromes. Follow-up ======== Recommend weekly testing to begin at 36 weeks due to maternal obesity (BMI>35) Repeat growth in 4 weeks due to LGA fetus. labor and preeclampsia precautions along with kick counts. Thank you for allowing us to partake in your patient's care. Coding ====== Diagnoses O99.213, E66.811: Obesity complicating , class 1 (BMI 30.0 - 34.9) Z36.2: Encounter for other screening follow-up Procedures 94371: US Preg Uterus Follow Up [employer] PACS Anatomical Region Laterality Modality Other 07/04/2025 11:1 5 AM CDT us Shayan Auguste MD [facility] ORDERABLES Edited Result - Final from Last 3 Months Insurance [facility]
[2025-07-15 08:49] LABS: Glucose Fasting Gestational 88 mg/dL (>/=95)
[2025-07-15 10:30] LABS: Glucose 1 Hour Gest 127 mg/dL (>/=180)
[2025-07-15 11:33] LABS: Glucose 2 Hour Gest 158 mg/dL (>/= 155)
[2025-07-15 12:22] LABS: Glucose 3 Hour Gest 132 mg/dL (>/=140)
== END 2025-07-15 08:01 | disposition home or self-care (01) ==
LOC: ANHLAB 08:02
PROVIDERS: Visit Provider Obstetrics & Gynecology
DX: R73.09 Other abnormal glucose (principal)
CPT/HCPCS: 36415; 82951; 82952

== ENCOUNTER 2025-07-26 11:25 | Outpatient (RCR) | payer OTHER, SELFPAY ==
[2025-07-12 11:04] VITALS: BP 108/65; PULSE 81
[2025-07-18 15:26] VITALS: BP 111/69; PULSE 84
[2025-07-19 13:22] VITALS: BP 103/65; PULSE 82
[2025-07-22 13:10] VITALS: BP 100/60; PULSE 76
--- NOTE | ~2025-07-26 | US_ITS ---
EXAMINATION: US OB limited DATE: 07/22/2025 12:25 INDICATION: Third trimester complicated by obesity. Assess amniotic fluid index. TECHNIQUE: Real-time ultrasound of the pelvis was performed. The interpreting radiologist was not present for the study. COMPARISON: None. FINDINGS: There is a single living fetus in vertex presentation. The placenta is fundal and not low-lying. heart rate is 143 beats per minute (bpm). The amniotic fluid index is 6.8 cm, which is at the lower range of normal. (5th%-95%: 6.6- 24.4 cm at 37 weeks estimated gestational age). IMPRESSION: 1. Single living fetus in vertex presentation with heart rate of 143 bpm. 2. Low normal amniotic fluid index of 6.8 cm. Reviewed, dictated and finalized at location A. IMPRESSION: 1. Single living fetus in vertex presentation with heart rate of 143 bpm . 2. Low normal amniotic fluid index of 6.8 cm.
--- NOTE | ~2025-07-26 | US_ITS ---
EXAMINATION: US OB BPP wo non-stress DATE: 07/18/2025 15:33 CDT INDICATION: Large for gestational age. TECHNIQUE: Real-time transabdominal obstetric ultrasound. FINDINGS: Comparison ultrasound dated 07/12/2025 There is a single living fetus in vertex presentation. The placenta is posterior without placenta previa. cardiac activity and movement is noted with a heart rate of 148 beats per minute. Biophysical profile: breathin of 2 movement: 2 of 2 tone: 2 of 2 Amniotic flud pocket: 2 of 2 Total score: 8 of 8 Amniotic fluid index is below normal limits measuring 5.6 cm (normal range for gestational age 7.7-24.8 cm). IMPRESSION: 1. Single living intrauterine in vertex presentation. 2: Total biophysical profile score of 8/8. 3: Oligohydramnios. Reviewed, dictated and finalized at location O.
--- NOTE | ~2025-07-26 | US_ITS ---
EXAMINATION: US OB limited DATE: 07/26/2025 13:35 INDICATION: Assess amniotic fluid index during third trimester TECHNIQUE: Real-time ultrasound of the pelvis was performed. The interpreting radiologist was not present for the study. COMPARISON: None. FINDINGS: There is a single living fetus in vertex presentation. The placenta is fundal. heart rate is 142 beats per minute (bpm). The amniotic fluid index is 12.3 cm, which is normal (5th%-95%: 7.3-83.9 cm at 38 weeks estimated gestational age). IMPRESSION: 1. Single living fetus in vertex presentation with heart rate of 142 bpm. 2. Normal amniotic fluid index of 12.3 cm. Reviewed, dictated and finalized at location A. IMPRESSION: 1. Single living fetus in vertex presentation with heart rate of 142 bpm . 2. Normal amniotic fluid index of 12.3 cm.
--- NOTE | ~2025-07-26 | US_ITS ---
EXAMINATION: US OB BPP wo non-stress DATE: 07/12/2025 11:38 INDICATION: Fetus measuring large for estimated gestational age during third trimester TECHNIQUE: Real-time pelvic ultrasound was performed. The interpreting radiologist was not present for the study. COMPARISON: None. FINDINGS: There is a single living fetus in vertex presentation. The placenta is posterior. heart rate is 140 beats per minute (bpm). Normal amniotic fluid index of 9.6 cm (5th%-95%: 7.7-24.9 cm at 36 weeks estimated gestational age) Biophysical profile performed by the technologist: breathing (30 sec sustained breathing in 30 minutes): 2 out of 2 movement (3 gross body movements in 30 minutes): 2 out of 2 tone (one episode of qaosisi-rjephueay-kugipkx limb movement): 2 out of 2 Amniotic fluid pocket (2 cm): 2 out of 2 Total score: 8 out of 8 IMPRESSION: 1. Single living fetus in vertex presentation with heart rate of 140 bpm. 2. Biophysical profile 8 out of 8. 3. Normal amniotic fluid index of 9.6 cm. Reviewed, dictated and finalized at location A.
--- NOTE | ~2025-07-26 | US_ITS ---
EXAMINATION: US OB BPP wo non-stress DATE: 07/19/2025 14:20 CDT INDICATION: Obesity TECHNIQUE: Real-time transabdominal obstetric ultrasound. FINDINGS: Ultrasound dated 07/18/2025 There is a single living fetus in vertex presentation. The placenta is maternal right without placenta previa. Amniotic fluid index is below normal limits measuring 5.4 cm. cardiac activity and movement is noted with a heart rate of 1:30 beats per minute. Biophysical profile: breathin of 2 movement: 2 of 2 tone: 2 of 2 Amniotic flud pocket: 2 of 2 Total score: 8 of 8 IMPRESSION: 1. Single living intrauterine in vertex presentation. 2: Total biophysical profile score of 8/8. 3: Oligohydramnios. KENDRA measures 5.4 cm. Reviewed, dictated and finalized at location O.
[2025-07-26 12:28] VITALS: BP 110/66; PULSE 80
== END 2025-07-28 09:18 | disposition home or self-care (01) ==
LOC: ANHOBOP 11:25
PROVIDERS: Visit Provider Obstetrics & Gynecology
DX: O36.63X0 Maternal care for excessive fetal growth, third trimester, not applicable or unspecified (principal); Z3A.35 35 weeks gestation of pregnancy
CPT/HCPCS: 59025; 76815; 76819

== ENCOUNTER 2025-07-27 03:17 | Inpatient (IN) | payer OTHER, SELFPAY ==
[2025-07-27] VITALS (45 sets, daily range): BP systolic 102–136; BP diastolic 56–90; PULSE 75–123; RESP 18; TEMP 36.4–36.8; O2SAT 82–100; BMI 33.0
[2025-07-27 03:44] LABS: Hematocrit 39.4 % (37.0-47.0); Hemoglobin 12.5 g/dL (12.0-15.0); Immature Granulocyte Percent A 0.5 % (0-0.5); Lymphocytes Absolute Auto 2.10 K/mm3 (0.9-3.2); Mean Corpuscular HGB Conc 31.7 g/dl (32-36); Mean Corpuscular Hemoglobin 24.6 pg (26-34); Mean Corpuscular Volume 77.4 fl (80-100); Nucleated Red Blood Cells Absolute Auto 0.000 K/mm3 (0.0-0.012); Nucleated Red Blood Cells Perc 0.0 % (0.0-0.2); Platelet Count Result 243 k/mm3 (150-375); Red Blood Count 5.09 M/mm3 (4.2-5.4); White Blood Count 9.2 K/mm3 (4.5-10.0)
--- NOTE | 2025-07-27 03:45 | LDADM ---
This patient, Elsa Andres, was admitted to Labor/Delivery/Recovery 107 on 07/27/25 at 03:17. Plans for labor, pain management and were discussed with patient. Patient/family oriented to hospital policies and general routines including ID bracelet, bed and alarms, visiting hours, pain management, procedures, bathroom and other care routines, personal items, smoking policy, room service/diet and guest tray routines, security routines, and visiting hours. Patient/Family are encouraged to report perceived risks to care and to ask questions if they do not understand what they are told or what they should do. See OBIX for further documentation.
[2025-07-27] MEDS: OXYTOCIN 30 UNITS/NS 500 ML 30 UNITS/500 ML BAG 999 UNITS IV CONT (04:19)
[2025-07-27 04:22] LABS: Syphilis IgG/IgM Antibody Non-Reactive (Nonreactive)
--- NOTE | 2025-07-27 04:31 | P.HPUP_ITS ---
History and Physical Update Update Date/Time: 07/27/25 04:31 29 yo who presents at 38w0d in labor. Pt is Welsh speaking only. History and Physical has been reviewed, including an updated exam of the patient. There are NO changes in the patient's condition. Risks, benefits, and alternatives have been discussed and questions answered. Patient agrees to proceed with procedure.
--- NOTE | 2025-07-27 04:32 | PM.OBPRVD ---
OB - Vaginal Delivery Note Procedure Delivery date: 07/27/25 Induction method: None Delivery monitor: External FHT and External Uterine Route of delivery: Episiotomy description: None Laceration Description: None Specimen: No Quantitative Blood Loss (ml): 300 Anesthesia type: None Disposition: Floor Complications: No immediate complications Narrative: Patient pushed for a spontaneous vaginal delivery. A nuchal cord x 2 was noted and reduced on the perineum. The fetus was delivered atraumatically and placed on the maternal abdomen. The cord was clamped and cut after 1 minute of life. The cord was double clamped and cut and a segment of cord was collected for cord gases. Cord blood was collected for blood type and Coomb's testing. The placenta delivered spontaneously and was noted to be intact. The perineum was inspected and noted to be intact. The fundus was noted to be firm and good hemostasis was noted. The mom and infant were stable in the delivery room. Baby Date of : 07/27/25 Time of : 04:19 Gestational Age by Date: 38 Infant gender: Male presentation: vertex position: Right Occiput Anterior Placenta delivery description: Spontaneous Cord Vessel Description: 3 Vessels
[2025-07-27] MEDS: OXYTOCIN 30 UNITS/NS 500 ML 30 UNITS/500 ML BAG 125 UNITS IV CONT (04:55)
[2025-07-27] MEDS: IBUPROFEN 600 MG TABLET (05:00)
[2025-07-27] MEDS: METHYLERGONOVINE MALEATE 0.2 MG/ML VIAL IM (05:40)
[2025-07-27] MEDS: ACETAMINOPHEN 325 MG TABLET 650 MG PO ×2 (06:46→14:37)
--- NOTE | 2025-07-27 07:03 | P.PNAN_ITS ---
Anes - Eval Pre Procedure Procedure: labor epidural Date/Time: 07/27/25 07:03 Surgeon: bill Preop Diagnosis: pain during labor Pre Op Diagnosis: Contractions Patient Data Age: 29 Gender: F Height: 1.57 m Weight: 81.81 kg Last Vital Signs Pulse 83 07/27/25 06:46 BP 102/66 07/27/25 06:46 Pulse Ox 100 07/27/25 06:49 O2 Del Method Room Air 07/27/25 03:58 Allergies Allergy/AdvReac Type Severity Reaction Status Date / Time No Known Allergies Allergy Verified 07/22/25 13:27 Home Medications ?Medication ?Instructions ?Recorded ?Confirmed ?Type docosahexaenoic acid 200 mg 200 mg PO DAILY 06/22/20 0 07/22/25 History capsule ( DHA) Laboratory Tests 07/27/25 03:38 WBC 9.2 K/mm3 (4.5-10.0) RBC 5.09 M/mm3 (4.2-5.4) Hgb 12.5 g/dL (12.0-15.0) Hct 39.4 % (37.0-47.0) MCV 77.4 L fl (80-100) MCH 24.6 L pg (26-34) MCHC 31.7 L g/dl (32-36) RDW 16.8 H % (11.5-14.5) Plt Count 243 k/mm3 (150-375) MPV 11.1 H fl (7.4-10.4) Immature Gran % (Auto) 0.5 % (0-0.5) Neut % (Auto) 70.7 % (45.5-73.1) Lymph % (Auto) 22.8 % (18.3-44.2) [place] % (Auto) 5.0 % (2.6-8.5) Eos % (Auto) 0.7 % (0-4.4) Baso % (Auto) 0.3 % (0.2-1.2) Lymph # (Auto) 2.10 K/mm3 (0.9-3.2) [place] # (Auto) 0.5 K/mm3 (0.1-0.6) Eos # (Auto) 0.1 K/mm3 (0-0.3) Baso # (Auto) 0.0 K/mm3 (0.0-0.1) Abs Immat Gran (auto) 0.05 H K/mm3 (0.00-0.031) Absolute Neuts (auto) 6.5 K/mm3 (1.3-6.7) Absolute Nucleated RBC 0.000 K/mm3 (0.0-0.012) Nucleated RBC % 0.0 % (0.0-0.2) Syphilis IgG/IgM Ab Non-reactive (Nonreactive) Blood Type O Positive Antibody Screen Negative Patient hx anesthesia problems: none Family hx anesthesia problems: none Results Review: All pre-operative results and documents have been reviewed as part of the pre- operative evaluation. [facility] Past Medical History Medical History Homozygous MTHFR mutation [id number] Vaginal delivery X2 09/02/12 full term 12/24/17 full term Family History Family History Mother Diabetes mellitus Other Hypertension Social History Social History Smoking status: Never smoker Second hand tobacco smoke exposure: No Alcohol intake: never Substance use: never Lack of Transportation: YES Lack of Food: Never True Current Housing: I Have Housing Concerned About Future Housing: No Difficulty Paying Gas/Electric Bills: No Difficulty Paying for Meds: No Currently Unemployed: No Education: Grade School Difficulty w/ Childcare or Family Care: No Gender identity (if verbalized by the patient): Female Sexual Orientation (if Verbalized by the Patient): Straight or Heterosexual Spiritual care concerns: No Exam Day of Procedure 07/27/25 07:03
--- NOTE | 2025-07-27 07:18 | OBPPTRN ---
Patient transferred to post room #277 via wheelchair. Support person present. Oriented to unit, room, information board, rooming in, admission packet and security measures. Patient verbalizes understanding.
[2025-07-27] MEDS: DOCUSATE SODIUM 100 MG CAPSULE PO (09:14)
[2025-07-27] MEDS: MULTIVIT/MIN/PREN/FOL AC/IRON TABLET 1 TAB PO (09:14)
[2025-07-27] MEDS: IBUPROFEN 600 MG TABLET PO (19:31)
[2025-07-27] MEDS: LANOLIN (LANSINOH) 7.5 GM CREAM 1 APPLIC TOPICAL (19:32)
--- NOTE | 2025-07-27 20:01 | PC.NURSE ---
Introduced self to patient as her RN for the evening using Segment Homicide Squad Lieutenant (ID #[id number]). Assessment completed, and patient updated on plan of care including informing patient when we will be completing rounds, vitals, and 24 hour testing on baby. Mom is currently baby with appropriate latch, suck, and swallow, and has no concerns about at this time. Along with Homicide Squad Lieutenant, patient confirms she has no further questions and has been instructed to call for assistance as needed.
[2025-07-28 04:20] LABS: Hematocrit 31.2 % (37.0-47.0); Hemoglobin 9.6 g/dL (12.0-15.0)
[2025-07-28] MEDS: ACETAMINOPHEN 325 MG TABLET 650 MG PO (05:49)
[2025-07-28 07:15] VITALS: BP 91/48; PULSE 78; RESP 16; TEMP 36.9; O2SAT 98
[2025-07-28] MEDS: MULTIVIT/MIN/PREN/FOL AC/IRON TABLET 1 TAB PO (08:26)
[2025-07-28] MEDS: DOCUSATE SODIUM 100 MG CAPSULE PO (08:26)
--- NOTE | 2025-07-28 10:41 | PC.NURSE ---
Consulted with mother concerning needs and she shared her ability to independently latch infant optimally without pain. Mother is feeding appropriately for growth of and understands stimulating to eat if needed. Infant has had appropriate feedings in the last 24 hours meets the outcomes for weight, output, blood sugar and jaundice at this time. Reinforced understanding of milk production, transition of milk, signs of adequate intake, transition of stool, prevention/relief of engorgement, plugged ducts, mastitis, responsive watching for feeding cues, the different methods of stimulating to breastfeed 1-3 hours after the start of the last feeding, community resources, and when to call a provider using the resource of the feeding sheet along with the mom and baby guide. Mother voiced understanding of the information shared, is confident to continue effectively her infant at home, when to call for assistance, denies any additional assistance or education at this time. Reported to the Primary RN.
--- NOTE | 2025-07-28 12:37 | P.DS_ITS ---
DS: Admitting Diagnosis Discharge Date 07/28/25 Admitting Diagnosis Labor DS: Discharge Diagnosis Discharge Diagnosis (1) Vaginal delivery: Code(s): O80 - Encounter for full-term uncomplicated delivery Status: Acute OB - DS: Summary Hospital Course Hospital Course: She was admitted in active labor. She had an uncomplicated vaginal delivery. She did well . She was discharged to home on day 1 per her request. OB Procedures : Ultrasound OB Procedures Intrapartum: Spontaneous Vag Delivery OB Procedures: : None Peripartum Data Delivery Method: Natural Vaginal Laceration Description: None Episiotomy description: None complications: none Status at Discharge Functional status at discharge: independent ambulation Time Spent with Patient Time attestation: Total time spent providing and/or coordinating discharge services: Exam Const: General: cooperative Orientation/consciousness: oriented to person, oriented to place and oriented to time HENMT: Face/Nose/Sinus: Normal external nose present Eyes: General: appearance normal, both eyes and all related structures Resp: Effort & Inspection: normal respiratory effort GI: Inspection: normal to inspection Skin: General skin exam: normal color Neuro: General: oriented to person, oriented to place and oriented to time Extrem: General: normal to inspection and no calf tenderness Psych: Appearance: grossly normal DS: Data Data Completed and Pending Labs on day of discharge: Labs from last 24 hours 07/28/25 03:45 Hgb 9.6 L Hct 31.2 L Discharge Plan Discharge Attending physician on discharge: Shayan Chin Consulting providers: Valentin Sal; Lalitha Tobias Discharging Clinician: Shayan Chin Anticipated Discharge Date/Time: 07/28/25 12:36 Patient Disposition: Home Activity: may shower and pelvic rest Diet: regular Discharge Instructions: Education: Mom and Baby Guide Given to: Mother Follow-Up: Call your delivering provider's office for an appointment to be seen in: Call for appointment [facility] follow[facility]up [facility]. Appointment Date/Time: July 30, 2025 at 8:00 am What to expect at your follow-up visit: Blood Pressure Check Physical Assessment Call [phone] if you are unable to keep your appointment time. BREAST CARE: * Wear a snug supportive bra. * For engorgement discomfort: Breast Feeding: * Apply warm moist washcloths * Express milk as needed to relieve engorgement * Wear loose clothing Bottle Feeding: * May apply ice packs * For sore nipples: * Identify correct latch-on * Apply warm moist washcloths before and after nursing * Air dry nipples after nursing * May apply Lansinoh cream to nipples PERINEAL CARE: * Until bleeding stops, use your vin bottle after urinating * Change your pad frequently throughout the day * You may take sitz baths several times a day (fill your bathtub with warm water and soak for 20 minutes.) Do NOT bathe in the water * No tub baths until seen by your physician - You may shower ACTIVITY: * Rest as much as possible. * Do not exercise or lift anything heavier than your baby (such as laundry or other children.) * Avoid stairs or driving as much as possible. * Do not put anything into the vagina. No douching, tampons, or sexual activity until seen by physician. NOTIFY PHYSICIAN IF YOU HAVE ANY QUESTIONS OR IF ANY OF THE FOLLOWING SYMPTOMS OCCUR: * If your vaginal bleeding becomes foul smelling. * If your vaginal bleeding becomes more heavy than a period or if your bleeding changes from pink to bright red. However, you may pass an occasional walnut- sized clot once or twice for the first week . * If you experience a sharp, shooting pain in your calves. * If you discover a hard, reddened area on your breast or if you experience flu- like symptoms. DIET: * Eat regular, well-balanced meals. * Drink plenty of fluids daily. If , drink to thirst. Patient Language: Burkinan Stand Alone Forms: General Discharge Information Follow-up/Referrals: Shayan Chin MD [Physician, COMPOSING MACHINE OPERATOR/TENDER] - Call for Appointment Discharge Medications: Continued DHA 200 mg capsule 200 mg PO DAILY Date of admission: 07/27/25 03:17 Primary Care Provider: PHYSICIAN,WIRE WEAVER Admitting Provider: Valentin Sal Attending physician on admission: Shayan Chin Condition: Stable
--- NOTE | 2025-07-28 12:37 | PM.OBPNVD ---
OB - PN: Subj Subjective Date/time seen: 07/28/25 12:37 Patient comments: pain well controlled, tolerating diet and other (Decreasing lochia.) OB - PN: Obj Data Labs 07/28/25 03:45 Labs: Laboratory Results - last 24 hr 07/28/25 03:45 Hgb 9.6 L Hct 31.2 L OB - PN A/P Assessment and Plan (1) Vaginal delivery: Code(s): O80 - Encounter for full-term uncomplicated delivery Status: Acute Plan day: 1 Plan: routine care Comments: Patient doing well. Baby has emergent clinic appt in [facility]. Patient will be discharged. Discharged precautions reviewed. Special Equipment Technician service used. Time Spent With Patient Time: Total time spent is greater than 50% in coordination of care (as documented) at patient's floor/unit and/or counseling patient: Exam Psych: Affect: normal affect Other: Abd: fundus firm below umbilicus, nontender Perineum: healing Ext: nontender
[2025-07-30 08:45] VITALS: BP 122/64; PULSE 77; RESP 14; TEMP 36.7; O2SAT 99
== END 2025-07-28 13:51 | disposition home or self-care (01) | DRG 560 ==
LOC: ANHLDR 03:56 → ANHOB2 07:29
PROVIDERS: Admitting Provider Student in an Organized Health Care Education/Training Program; Visit Provider Obstetrics & Gynecology
DX: O62.3 Precipitate labor (principal); Z37.0 Single live birth; Z3A.38 38 weeks gestation of pregnancy; O69.81X0 Labor and delivery complicated by cord around neck, without compression, not applicable or unspecified; O62.2 Other uterine inertia
CPT/HCPCS: 36415; 85014; 85018; 85025; 86593; 86850; 86900; 86901; A9270; J2210; J2590